=== PATIENT | female | born 1940 | race Caucasian/White ===

== ENCOUNTER 2017-03-10 14:49 | Observation (INO) | payer MEDICARE ==
[2017-03-10] MEDS ORDERED: SODIUM CHLORIDE 0.9% 1,000 ML IV ONE (15:26)
--- NOTE | 2017-03-10 15:29 | ED ---
General Adult HPI - General Chief complaint: Altered Mental Status Stated complaint: Altered Mental State Time Seen by Provider: 03/10/17 15:19 Source: patient, RN notes reviewed Mode of arrival: wheelchair Limitations: no limitations - History of Present Illness Initial comments: Patient is a pleasant 77-year-old female presenting to the emergency department with general weakness and confusion. History is provided by family. Patient has chronic dementia however has seemed worse the past couple of days. Patient is more argumentative. Patient did not want wake up this morning. Patient is unable to get around without assistance the past 2 days. A foul odor has been noticed of the urine. Decreased appetite. - Related Data Home Medications Medication Instructions Recorded Confirmed Cefaclor 250 mg PO DAILY 03/10/17 03/10/17 Allergies Allergy/AdvReac Type Severity Reaction Status Date / Time No Known Allergies Allergy Verified 03/10/17 15:19 Review of Systems ROS Statement: Those systems with pertinent positive or pertinent negative responses have been documented in the HPI. ROS Other: All systems not noted in ROS Statement are negative. Constitutional: Denies: fever Eyes: Denies: eye pain ENT: Denies: ear pain Respiratory: Denies: cough, dyspnea Cardiovascular: Denies: chest pain Endocrine: Reports: fatigue Gastrointestinal: Denies: abdominal pain Genitourinary: Denies: dysuria Musculoskeletal: Denies: back pain Skin: Denies: rash Neurological: Reports: weakness (Generalized) Past Medical History Past Medical History: Unable to Obtain, Cancer, Dementia Additional Past Medical History / Comment(s): pt spouse reports that he believes his has a history of uterine cancer with a possible hysterectomy. Pt is a poor historian. History of Any Multi-Drug Resistant Organisms: None Reported Past Surgical History: Unable to Obtain Additional Past Surgical History / Comment(s): pt a poor historian. Past Psychological History: No Psychological Hx Reported Smoking Status: Current every day smoker Past Alcohol Use History: None Reported Past Drug Use History: None Reported - Past Family History Daughter(s) Family Medical History: Cancer Father Family Medical History: Congestive Heart Failure (CHF) General Exam Limitations: no limitations General appearance: alert, in no apparent distress Head exam: Present: atraumatic Eye exam: Present: normal appearance, PERRL, EOMI ENT exam: Present: normal oropharynx Neck exam: Present: normal inspection Respiratory exam: Present: normal lung sounds bilaterally Cardiovascular Exam: Present: regular rate, normal rhythm GI/Abdominal exam: Present: soft. Absent: tenderness Extremities exam: Present: normal inspection Neurological exam: Present: alert, altered, CN II-XII intact. Absent: motor sensory deficit Expanded Patient oriented to: Present: person. Absent: place, time Cranial nerves: EOM's Intact: Normal Motor strength exam: RUE: 5, LUE: 5, RLE: 5, LLE: 5 Eye Response: (4) open spontaneously Motor Response: (6) obeys commands Verbal Response: (4) confused conversation Psychiatric exam: Present: normal affect, normal mood Skin exam: Present: normal color Course Vital Signs 03/10/17 03/10/17 14:50 16:15 Temperature 97.0 F L Pulse Rate 68 100 Respiratory 16 18 Rate Blood Pressure 183/77 134/70 O2 Sat by Pulse 98 94 L Oximetry - Reevaluation(s) Reevaluation #1: 03/10/17 16:44 Patient does not meet sepsis criteria. EKG Findings - EKG Comments: EKG Findings:: Sinus bradycardia 57. DE 120. QRS 74. QT 402. QTC 391. Normal axis. LVH criteria. No acute ST change. Medical Decision Making - Medical Decision Making Patient reevaluated and resting comfortably in bed. Patient and family updated on results and plan. Dr. Austin has been paged for admission for Dr. Conn. - Lab Data Result diagrams: 03/10/17 15:25 03/10/17 15:25 Lab Results 03/10/17 03/10/17 03/10/17 Range/Units 15:12 15:25 15:25 WBC 5.2 (3.8-10.6) k/uL RBC 4.37 (3.80-5.40) m/uL Hgb 12.7 (11.4-16.0) gm/dL Hct 40.0 (34.0-46.0) % MCV 91.5 (80.0-100.0) fL MCH 29.1 (25.0-35.0) pg MCHC 31.8 (31.0-37.0) g/dL RDW 14.5 (11.5-15.5) % Plt Count 226 (150-450) k/uL Neutrophils % 64 % Lymphocytes % 24 % Monocytes % 8 % Eosinophils % 1 % Basophils % 1 % Neutrophils # 3.3 (1.3-7.7) k/uL Lymphocytes # 1.2 (1.0-4.8) k/uL Monocytes # 0.4 (0-1.0) k/uL Eosinophils # 0.0 (0-0.7) k/uL Basophils # 0.0 (0-0.2) k/uL PT (9.0-12.0) sec INR (<1.2) APTT (22.0-30.0) sec Sodium (137-145) mmol/L Potassium (3.5-5.1) mmol/L Chloride (98-107) mmol/L Carbon Dioxide (22-30) mmol/L Anion Gap mmol/L BUN (7-17) mg/dL Creatinine (0.52-1.04) mg/dL Est GFR (MDRD) Af Amer (>60 ml/min/1.73 sqM) Est GFR (MDRD) Non-Af (>60 ml/min/1.73 sqM) Glucose (74-99) mg/dL Calcium (8.4-10.2) mg/dL Total Bilirubin (0.2-1.3) mg/dL AST (14-36) U/L ALT (9-52) U/L Alkaline Phosphatase (38-126) U/L Total Creatine Kinase 113 (30-135) U/L CK-MB (CK-2) 2.3 (0.0-2.4) ng/mL CK-MB (CK-2) Rel Index 2.0 Troponin I <0.012 (0.000-0.034) ng/mL Total Protein (6.3-8.2) g/dL Albumin (3.5-5.0) g/dL Urine Color Yellow Urine Appearance Cloudy H (Clear) Urine pH 6.5 (5.0-8.0) Ur Specific [place] 1.017 (1.001-1.035) Urine Protein Trace H (Negative) Urine Glucose (UA) Negative (Negative) Urine Ketones Negative (Negative) Urine Blood Small H (Negative) Urine Nitrite Negative (Negative) Urine Bilirubin Negative (Negative) Urine Urobilinogen <2.0 (<2.0) mg/dL Ur Leukocyte Esterase Large H (Negative) Urine RBC 7 H (0-5) /hpf Urine WBC >182 H (0-5) /hpf Ur Squamous Epith Cells <1 (0-4) /hpf Hyaline Casts 2 (0-2) /lpf Urine Mucus Rare H (None) /hpf 03/10/17 03/10/17 Range/Units 15:25 15:25 WBC (3.8-10.6) k/uL RBC (3.80-5.40) m/uL Hgb (11.4-16.0) gm/dL Hct (34.0-46.0) % MCV (80.0-100.0) fL MCH (25.0-35.0) pg MCHC (31.0-37.0) g/dL RDW (11.5-15.5) % Plt Count (150-450) k/uL Neutrophils % % Lymphocytes % % Monocytes % % Eosinophils % % Basophils % % Neutrophils # (1.3-7.7) k/uL Lymphocytes # (1.0-4.8) k/uL Monocytes # (0-1.0) k/uL Eosinophils # (0-0.7) k/uL Basophils # (0-0.2) k/uL PT 10.3 (9.0-12.0) sec INR 1.0 (<1.2) APTT 22.0 (22.0-30.0) sec Sodium 135 L (137-145) mmol/L Potassium 4.6 (3.5-5.1) mmol/L Chloride 100 (98-107) mmol/L Carbon Dioxide 27 (22-30) mmol/L Anion Gap 8 mmol/L BUN 27 H (7-17) mg/dL Creatinine 1.00 (0.52-1.04) mg/dL Est GFR (MDRD) Af Amer >60 (>60 ml/min/1.73 sqM) Est GFR (MDRD) Non-Af 54 (>60 ml/min/1.73 sqM) Glucose 90 (74-99) mg/dL Calcium 9.9 (8.4-10.2) mg/dL Total Bilirubin 1.4 H (0.2-1.3) mg/dL AST 23 (14-36) U/L ALT 31 (9-52) U/L Alkaline Phosphatase 50 (38-126) U/L Total Creatine Kinase (30-135) U/L CK-MB (CK-2) (0.0-2.4) ng/mL CK-MB (CK-2) Rel Index Troponin I (0.000-0.034) ng/mL Total Protein 7.1 (6.3-8.2) g/dL Albumin 4.2 (3.5-5.0) g/dL Urine Color Urine Appearance (Clear) Urine pH (5.0-8.0) Ur Specific [place] (1.001-1.035) Urine Protein (Negative) Urine Glucose (UA) (Negative) Urine Ketones (Negative) Urine Blood (Negative) Urine Nitrite (Negative) Urine Bilirubin (Negative) Urine Urobilinogen (<2.0) mg/dL Ur Leukocyte Esterase (Negative) Urine RBC (0-5) /hpf Urine WBC (0-5) /hpf Ur Squamous Epith Cells (0-4) /hpf Hyaline Casts (0-2) /lpf Urine Mucus (None) /hpf - Radiology Data Radiology results: image reviewed (Chest x-ray shows no acute process. Computed tomography scan of the brain shows hydrocephalus.) Disposition Clinical Impression: Altered mental status, Urinary tract infection Disposition: ADMITTED IP TO THIS HOSP Referrals: Terri Conn DO [Primary Care Provider] - 1-2 days Decision Time: 16:44
[2017-03-10 15:37] LABS: Basophils % (A) 1 %; Eosinophils % (A) 1 %; HGB 12.7 gm/dL (11.4-16.0); Lymphocytes # (A) 1.2 k/uL (1.0-4.8); Lymphocytes % (A) 24 %; MCH 29.1 pg (25.0-35.0); MCHC 31.8 g/dL (31.0-37.0); MCV 91.5 fL (80.0-100.0); Mean Platelet Volume 8.7; Monocytes # (A) 0.4 k/uL (0-1.0); Monocytes % (A) 8 %; Neutrophils # (A) 3.3 k/uL (1.3-7.7); Neutrophils % (A) 64 %; Platelet Count 226 k/uL (150-450); RBC 4.37 m/uL (3.80-5.40); RDW 14.5 % (11.5-15.5); WBC 5.2 k/uL (3.8-10.6)
[2017-03-10 15:52] LABS: ALT 31 U/L (9-52); AST 23 U/L (14-36); Albumin 4.2 g/dL (3.5-5.0); Alkaline Phosphatase 50 U/L (38-126); Anion Gap 8 mmol/L; Blood Urea Nitrogen 27 mg/dL (7-17); Calcium 9.9 mg/dL (8.4-10.2); Carbon Dioxide 27 mmol/L (22-30); Chloride 100 mmol/L (98-107); Glucose 90 mg/dL (74-99); Potassium 4.6 mmol/L (3.5-5.1); Sodium 135 mmol/L (137-145); Total Bilirubin 1.4 mg/dL (0.2-1.3); Total Protein 7.1 g/dL (6.3-8.2)
[2017-03-10 15:53] LABS: Creatine Kinase 113 U/L (30-135)
[2017-03-10 15:56] LABS: Appearance,Urine Cloudy (Clear); Bilirubin,Urine Negative (Negative); Blood,Urine Small (Negative); Color,Urine Yellow; Glucose,Urine (UA) Negative (Negative); Hyaline Casts,Urine 2 /lpf (0-2); Ketones,Urine Negative (Negative); Leukocyte Esterase,Urine Large (Negative); Mucus,Urine Rare /hpf; Nitrite,Urine Negative (Negative); PH, Urine 6.5 (5.0-8.0); Protein,Urine Trace (Negative); RBC,Urine 7 /hpf (0-5); Specific Gravity,Urine 1.017 (1.001-1.035); Squamous Epithelial Cell,Urine <1 /hpf (0-4); Urobilinogen,Urine <2.0 mg/dL (<2.0); WBC,Urine >182 /hpf (0-5)
[2017-03-10 16:03] LABS: Prothrombin Time 10.3 sec (9.0-12.0)
[2017-03-10 16:04] LABS: Creatine Kinase MB 2.3 ng/mL (0.0-2.4); Troponin I <0.012 ng/mL (0.000-0.034)
--- NOTE | 2017-03-10 16:40 | XR ---
EXAMINATION TYPE: XR chest 2V DATE OF EXAM: 03/10/2017 COMPARISON: Chest x-ray January 09, 2015 HISTORY: Altered mental status and weakness. TECHNIQUE: Frontal and lateral views of the chest are obtained. FINDINGS: There is chronic parenchymal change without suspicious focal air space opacity, pleural ef fusion, or pneumothorax seen. The cardiac silhouette size is stable and upper limits of normal. Ther e is fracture deformity left posterolateral eighth rib presumed old. IMPRESSION: No acute cardiopulmonary process.
--- NOTE | 2017-03-10 16:42 | CT ---
EXAMINATION TYPE: CT brain wo con DATE OF EXAM: 03/10/2017 HISTORY: Altered mental status. CT DLP: 809.2 mGycm. Automated Exposure Control for Dose Reduction was Utilized. TECHNIQUE: CT scan of the head is performed without contrast. COMPARISON: CT brain January 09, 2015 . FINDINGS: There is no acute intracranial hemorrhage or midline shift identified. There is severe hy drocephalus redemonstrated without significant change from prior. Fourth ventricle is not dilated sim ilar to prior. The globes are intact and the visualized sinuses are clear. IMPRESSION: No acute intracranial hemorrhage or midline shift. Persistent severe hydrocephalus. No s ignificant change from prior.
[2017-03-10] MEDS ORDERED: NALOXONE 0.4 MG/ML 1 ML VIAL IV PRN (16:45)
[2017-03-10] MEDS ORDERED: cefTRIAXone IN SWFI 1,000 MG/10 ML SYRINGE IVP STA (17:01)
[2017-03-10] MEDS: SODIUM CHLORIDE 0.9% 1,000 ML IV SCH (18:57)
[2017-03-10] MEDS: QUEtiapine 25 MG TAB PO SCH (20:30)
[2017-03-11] MEDS: cefTRIAXone IN SWFI 1,000 MG/10 ML SYRINGE IVP SCH ×2 (06:12→17:59)
[2017-03-11] MEDS: SODIUM CHLORIDE 0.9% 1,000 ML IV SCH (06:13)
[2017-03-11 09:01] LABS: Basophils # (A) 0.1 k/uL (0-0.2); Basophils % (A) 1 %; Eosinophils # (A) 0.1 k/uL (0-0.7); Eosinophils % (A) 1 %; HCT 38.7 % (34.0-46.0); HGB 11.9 gm/dL (11.4-16.0); Lymphocytes # (A) 1.3 k/uL (1.0-4.8); Lymphocytes % (A) 25 %; MCHC 30.7 g/dL (31.0-37.0); MCV 94.5 fL (80.0-100.0); Monocytes # (A) 0.4 k/uL (0-1.0); Monocytes % (A) 7 %; Neutrophils # (A) 3.2 k/uL (1.3-7.7); Neutrophils % (A) 62 %; Platelet Count 217 k/uL (150-450); RBC 4.09 m/uL (3.80-5.40); RDW 14.6 % (11.5-15.5); WBC 5.1 k/uL (3.8-10.6)
[2017-03-11 09:22] LABS: ALT 28 U/L (9-52); AST 21 U/L (14-36); Albumin 3.5 g/dL (3.5-5.0); Alkaline Phosphatase 43 U/L (38-126); Anion Gap 9 mmol/L; Blood Urea Nitrogen 25 mg/dL (7-17); Carbon Dioxide 26 mmol/L (22-30); Chloride 104 mmol/L (98-107); Glucose 77 mg/dL (74-99); Potassium 4.7 mmol/L (3.5-5.1); Sodium 139 mmol/L (137-145); Total Bilirubin 0.9 mg/dL (0.2-1.3)
[2017-03-11 09:53] LABS: Calcium 9.1 mg/dL (8.4-10.2)
--- NOTE | 2017-03-11 12:11 | P.HPIM ---
History of Present Illness H&P Date: 03/11/17 Chief Complaint: Increasing confusion and aggressive behavior This is a 77-year-old female, patient of [facility]. She has a known past medical history of dementia and uterine cancer status post hysterectomy. Patient is a poor historian. Most of information was taken from ER report. Patient is confused. Apparently per ER report patient has been having confusion and generalized weakness and his been more argumentative over the last couple a days. Her urine has had a foul order. She's had a decreased appetite. Also requiring more assistance with ambulating. Patient was found to have a UTI and was started on IV Rocephin. Chest x-rays negative. Computed tomography scan of the brain showed no acute changes but did reveal a persistent severe hydrocephalus with no significant change from prior study. EKG showed sinus bradycardia with a heart rate of 57. Patient lying in bed comfortably. She has a bedside sitter. Denies any pain. Denies chest pain, shortness breath, nausea or vomiting, bowel movement changes or burning with urination. Review of Systems Please refer to HPI otherwise unremarkable Past Medical History Past Medical History: Unable to Obtain, Cancer, Dementia Additional Past Medical History / Comment(s): pt spouse reports that he believes his has a history of uterine cancer with a possible hysterectomy. Pt is a poor historian. History of Any Multi-Drug Resistant Organisms: None Reported Past Surgical History: Unable to Obtain Additional Past Surgical History / Comment(s): pt a poor historian. Past Anesthesia/Blood Transfusion Reactions: No Reported Reaction Past Psychological History: No Psychological Hx Reported Smoking Status: Former smoker Past Alcohol Use History: None Reported Past Drug Use History: None Reported - Past Family History Daughter(s) Family Medical History: Cancer Father Family Medical History: Congestive Heart Failure (CHF) Medications and Allergies Home Medications Medication Instructions Recorded Confirmed Type Cefaclor 250 mg PO DAILY 03/10/17 03/10/17 History Allergies Allergy/AdvReac Type Severity Reaction Status Date / Time No Known Allergies Allergy Verified 03/10/17 15:19 Physical Exam Vitals: Vital Signs Temp Pulse Pulse Resp BP BP Pulse Ox 03/11/17 07:00 97.4 F L 72 16 155/75 97 03/10/17 23:00 98.5 F 60 16 131/65 97 03/10/17 17:45 60 18 162/84 100 03/10/17 16:43 97.0 F L 100 18 134/70 94 L 03/10/17 16:15 100 18 134/70 94 L 03/10/17 14:50 97.0 F L 68 16 183/77 98 Intake and Output 03/10/17 03/11/17 03/11/17 22:59 06:59 14:59 Other: Voiding Method Diaper Diaper Incontinent Incontinent # Voids 2 Head normocephalic Neck supple Lungs clear to auscultation bilaterally no wheezing or crackles Heart regular rate and rhythm S1-S2, no rub or gallop Abdomen is soft nontender nondistended positive bowel sounds no hepatosplenomegaly Extremities no edema Neuro alert and orientated to 0. Patient is pleasantly confused. Vital laying in bed, in no distress Results CBC & Chem 7: 03/11/17 08:22 03/11/17 08:22 Labs: Abnormal Lab Results - Last 24 Hours (Table) 03/10/17 03/10/17 03/11/17 Range/Units 15:12 15:25 08:22 MCHC 30.7 L (31.0-37.0) g/dL Sodium 135 L (137-145) mmol/L BUN 27 H (7-17) mg/dL Total Bilirubin 1.4 H (0.2-1.3) mg/dL Total Protein (6.3-8.2) g/dL Urine Appearance Cloudy H (Clear) Urine Protein Trace H (Negative) Urine Blood Small H (Negative) Ur Leukocyte Esterase Large H (Negative) Urine RBC 7 H (0-5) /hpf Urine WBC >182 H (0-5) /hpf Urine Mucus Rare H (None) /hpf 03/11/17 Range/Units 08:22 MCHC (31.0-37.0) g/dL Sodium (137-145) mmol/L BUN 25 H (7-17) mg/dL Total Bilirubin (0.2-1.3) mg/dL Total Protein 6.0 L (6.3-8.2) g/dL Urine Appearance (Clear) Urine Protein (Negative) Urine Blood (Negative) Ur Leukocyte Esterase (Negative) Urine RBC (0-5) /hpf Urine WBC (0-5) /hpf Urine Mucus (None) /hpf Microbiology - Last 24 Hours (Table) 03/10/17 15:12 Urine Culture - Preliminary Urine,Voided Thrombosis Risk Factor Assmnt - Choose All That Apply Any of the Below Risk Factors Present?: No Other Risk Factors: Yes Each Risk Factor Represents 3 Points: Age 75 years or older Thrombosis Risk Factor Assessment Total Risk Factor Score: 3 Thrombosis Risk Factor Assessment Level: Moderate Risk Assessment and Plan Assessment: 1. Acute metabolic encephalopathy secondary to UTI. Patient having confusion and aggressive behavior. Seroquel added at bedtime. Computed tomography scan of the brain showing no acute changes. Did show a persistent severe hydrocephalus which was no change from prior CT 2. UTI: Check urine culture. Continue IV Rocephin 3. History of dementia 4. History of uterine cancer status post hysterectomy 5. Medical debility consult physical therapy GI prophylaxis Pepcid and DVT prophylaxis subcu heparin Time with Patient: Greater than 30 (Greater than 50% of the total time spent in counseling and coordination of care.I performed an examination of the patient and discussed their management with the physician [employer]. I have reviewed the Physician [employer]'s notes and agree with the documented findings and plan of care)
--- NOTE | 2017-03-11 13:19 | CT ---
EXAMINATION TYPE: CT brain wo con DATE OF EXAM: 03/11/2017 COMPARISON: NONE HISTORY: Confusion CT DLP: 1121 mGycm Automated exposure control for dose reduction was used. FINDINGS: There is no acute intracranial hemorrhage or midline shift identified. There is severe hydrocephalus redemonstrated without significant change from prior. Fourth ventricle is not dilated similar to prio r. The globes are intact and the visualized sinuses are clear. Cerebellar tonsils are slightly low-lying in position without evidence of discrete Chiari malformatio n. IMPRESSION: 1. No acute intracranial hemorrhage or midline shift. Persistent severe hydrocephalus. No significant change from prior.
[2017-03-11] MEDS: QUEtiapine 25 MG TAB PO SCH (19:59)
[2017-03-12] MEDS: HEPARIN SODIUM,PORCINE 5,000 UNIT/ML 1 ML VIAL SQ SCH ×3 (00:08→19:51)
[2017-03-12] MEDS: SODIUM CHLORIDE 0.9% 1,000 ML IV SCH ×3 (00:13→21:57)
[2017-03-12] MEDS: cefTRIAXone IN SWFI 1,000 MG/10 ML SYRINGE IVP SCH ×2 (05:09→17:46)
[2017-03-12 08:49] LABS: Basophils # (A) 0.1 k/uL (0-0.2); Basophils % (A) 1 %; Eosinophils % (A) 1 %; HCT 32.7 % (34.0-46.0); HGB 10.5 gm/dL (11.4-16.0); Lymphocytes % (A) 17 %; MCH 29.3 pg (25.0-35.0); MCV 91.5 fL (80.0-100.0); Mean Platelet Volume 8.5; Monocytes # (A) 0.5 k/uL (0-1.0); Monocytes % (A) 8 %; Neutrophils # (A) 4.2 k/uL (1.3-7.7); Neutrophils % (A) 71 %; Platelet Count 188 k/uL (150-450); RBC 3.57 m/uL (3.80-5.40); RDW 14.4 % (11.5-15.5)
[2017-03-12 09:03] LABS: Anion Gap 10 mmol/L; Blood Urea Nitrogen 24 mg/dL (7-17); Calcium 9.1 mg/dL (8.4-10.2); Carbon Dioxide 23 mmol/L (22-30); Chloride 106 mmol/L (98-107); Glucose 73 mg/dL (74-99); Potassium 3.9 mmol/L (3.5-5.1); Sodium 139 mmol/L (137-145)
[2017-03-12] MEDS: FAMOTIDINE 20 MG TAB PO SCH (09:10)
--- NOTE | 2017-03-12 14:25 | P.PN ---
Subjective Progress Note Date: 03/12/17 This is a 77-year-old female, patient of [facility]. She has a known past medical history of dementia and uterine cancer status post hysterectomy. Patient is a poor historian. Most of information was taken from ER report. Patient is confused. Apparently per ER report patient has been having confusion and generalized weakness and his been more argumentative over the last couple a days. Her urine has had a foul order. She's had a decreased appetite. Also requiring more assistance with ambulating. Patient was found to have a UTI and was started on IV Rocephin. Chest x-rays negative. Computed tomography scan of the brain showed no acute changes but did reveal a persistent severe hydrocephalus with no significant change from prior study. EKG showed sinus bradycardia with a heart rate of 57. Patient lying in bed comfortably. She has a bedside sitter. Denies any pain. Denies chest pain, shortness breath, nausea or vomiting, bowel movement changes or burning with urination. 03/12/2017 patient is still confused. Her her mentation has some shown some improvement. However, patient is still very fidgety and trying to get out of the bed. Awaiting psychiatric evaluation Objective - Vital Signs Vital signs: Vital Signs Temp 98.1 F 03/12/17 07:00 Pulse 61 03/12/17 07:00 Resp 16 03/12/17 08:00 BP 115/81 03/12/17 07:00 Pulse Ox 97 03/12/17 07:00 Intake & Output 03/11/17 03/12/17 03/12/17 18:59 06:59 18:59 Intake Total 480 200 Balance 480 200 Intake: Oral 480 200 Other: Voiding Method Diaper Diaper Diaper Incontinent Incontinent Incontinent # Voids 2 4 2 - Exam Head normocephalic Neck supple Lungs clear to auscultation bilaterally no wheezing or crackles Heart regular rate and rhythm S1-S2, no rub or gallop Abdomen is soft nontender nondistended positive bowel sounds no hepatosplenomegaly Extremities no edema Neuro alert and orientated to name - Labs CBC & Chem 7: 03/12/17 07:49 03/12/17 07:49 Labs: Abnormal Lab Results - Last 24 Hours (Table) 03/12/17 03/12/17 Range/Units 07:49 07:49 RBC 3.57 L (3.80-5.40) m/uL Hgb 10.5 L (11.4-16.0) gm/dL Hct 32.7 L (34.0-46.0) % BUN 24 H (7-17) mg/dL Glucose 73 L (74-99) mg/dL Microbiology - Last 24 Hours (Table) 03/10/17 15:12 Urine Culture - Final Urine,Voided Assessment and Plan Assessment: 1. Acute metabolic encephalopathy secondary to UTI. Patient having confusion and aggressive behavior. Seroquel added at bedtime. Computed tomography scan of the brain showing no acute changes. Did show a persistent severe hydrocephalus which was no change from prior CT. Awaiting psychiatric evaluation 2. UTI: Continue IV Rocephin. Urine culture negative 3. History of dementia 4. History of uterine cancer status post hysterectomy 5. Medical debility consult physical therapy Anticipate discharge probably within the next 1-2 days GI prophylaxis Pepcid and DVT prophylaxis subcu heparin
--- NOTE | 2017-03-12 19:24 | P.CNNES ---
History of Present Illness Consult date: 03/12/17 Reason for Consult: Patient to be evaluated for confusion and severe hydrocephalus. History of Present Illness: This patient is a 77-year-old female who was admitted to [facility] on 03/10/2017 for increasing confusion and aggressive behavior. Patient has a past medical history of severe hydrocephalus and history of dementia. She has undergone treatment for uterine cancer with hysterectomy procedure. She is a very poor historian and is unable to provide any medical history today at bedside. Neurology was consulted today for further evaluation of her confusion. She was found in the emergency room to have evidence of a urinary tract infection and was started on IV Rocephin. Since admission to the hospital she is requiring 24-hour sitter at bedside due to agitation and aggressive behavior. She did undergo 2 CT scans of the brain both of which revealed evidence of a severe hydrocephalus. Her most recent CAT scan was done on 03/11/2017 and report indicates no acute intracranial hemorrhage or midline shift. There is persistent severe hydrocephalus. No change from prior study performed on 03/10/2017. Review of her previous medical record indicates she underwent a CAT scan of the brain on 01/09/2015. The CAT scan also reveals evidence for severe hydrocephalus. After review of all of her CAT scan films it is obvious she has a severe form of hydrocephalus. Information was obtained from the patient's nurse today who spoke to her earlier today. The and inform the nurse that she has been evaluated for the hydrocephalus and due to the risk and complications of further treatment of this condition the has refused any further surgical intervention for treatment of her hydrocephalus. We did try to contact the by phone but was unable to this evening. We did review the CAT scan films again in detail and due to the severity of her hydrocephalus likely showing worsening of underlying dementia for this patient. Unfortunately she also has a urinary tract infection which is also contributing to her increased confusion. We would recommend the attending physician to discuss further treatment options and cold status for this patient. We are waiting further evaluation from psychiatry. Unfortunately due to the long standing history of severe hydrocephalus she has a worsening dementing process. She is not able to follow any commands today at bedside. She is in restraints due to agitation. She will require a sitter at bedside due to her poor condition at this time. Once again we will discuss the CAT scan findings tomorrow with Dr. Boogie or Dr. Levine in detail. There is very little to offer this patient other than possible surgery which the has refused for her at this time. We will continue close monitoring of this patient. We will await further evaluation from psychiatry. Apparently she has been placed on Seroquel at bedtime to see if this may help with some of her agitation. Her overall prognosis at this time remains very guarded. Review of Systems Constitutional: Denies chills, Denies fever Eyes: denies blurred vision, denies pain Ears, nose, mouth and throat: Denies headache, Denies sore throat Cardiovascular: Denies chest pain, Denies shortness of breath Respiratory: Denies cough Gastrointestinal: Denies abdominal pain, Denies diarrhea, Denies nausea, Denies vomiting Genitourinary: Denies dysuria, Denies hematuria Musculoskeletal: Denies myalgias Integumentary: Denies pruritus, Denies rash Neurological: Reports ataxia, Reports balance difficulties, Reports change in mentation, Reports confusion, Reports gait dysfunction, Reports lack of coordination, Reports memory loss, Reports motor disturbance, Reports paresthesias, Reports weakness Psychiatric: Reports confusion, Reports depression, Reports difficulty concentrating, Reports hallucinations, Reports memory loss, Reports sleep disturbances Endocrine: Denies fatigue, Denies weight change Past Medical History Past Medical History: Unable to Obtain, Cancer, Dementia Additional Past Medical History / Comment(s): pt spouse reports that he believes his has a history of uterine cancer with a possible hysterectomy. Pt is a poor historian. History of Any Multi-Drug Resistant Organisms: None Reported Past Surgical History: Unable to Obtain Additional Past Surgical History / Comment(s): pt a poor historian. Past Anesthesia/Blood Transfusion Reactions: No Reported Reaction Past Psychological History: No Psychological Hx Reported Smoking Status: Former smoker Past Alcohol Use History: None Reported Past Drug Use History: None Reported - Past Family History Daughter(s) Family Medical History: Cancer Father Family Medical History: Congestive Heart Failure (CHF) Medications and Allergies Home Medications Medication Instructions Recorded Confirmed Type Cefaclor 250 mg PO DAILY 03/10/17 03/10/17 History Allergies Allergy/AdvReac Type Severity Reaction Status Date / Time No Known Allergies Allergy Verified 03/10/17 15:19 Physical Examination - Vital Signs Vital Signs: Vital Signs Temp Pulse Resp BP Pulse Ox 03/12/17 15:00 98.1 F 67 16 126/84 96 03/12/17 08:00 16 03/12/17 07:00 98.1 F 61 16 115/81 97 03/11/17 23:00 97.0 F L 64 14 155/67 95 Intake and Output 03/12/17 03/12/17 03/12/17 06:59 14:59 22:59 Intake Total 400 Balance 400 Intake: Oral 400 Other: Voiding Method Diaper Diaper Toilet Incontinent Incontinent Diaper Incontinent # Voids 4 3 3 # Bowel Movements 1 1 Weight 44.452 kg Patient Weight 03/13/17 06:59 Weight 44.452 kg - Constitutional General appearance: disheveled, thin - EENT EENT: PERRL, mucous membranes moist - Respiratory Respiratory: lungs clear, normal breath sounds - Cardiovascular Cardiovascular: regular rate, normal S1, normal S2 Extremities: no peripheral edema bilaterally - Gastrointestinal Gastrointestinal: normoactive bowel sounds - Integumentary Integumentary: normal - Neurologic Cranial nerve examination: PERRL, EOMI, V1/V2/V3 grossly intact, face symmetric , intact gag reflex, intact corneal reflex, normal palatal elevation Speech examination: global aphasia Sensorimotor examination: intact Motor examination - right side: 3/5: biceps, triceps, wrist flexion, wrist extension, channel development manager, hip flexors, knee extensors, dorsiflexion, toe extension (EHL) , plantarflexion Motor examination - left side: 3/5: biceps, triceps, wrist flexion, wrist extension, channel development manager, hip flexors, knee extensors, dorsiflexion, toe extension (EHL) , plantarflexion Detailed sensory examination: intact Reflex and gait examination: intact Reflexes: 1+: ankle, bicep, knee, tricep - Musculoskeletal Musculoskeletal: no pain - Psychiatric Psychiatric: agitated, pressured speech Results - Laboratory Findings CBC and BMP: 03/12/17 07:49 03/12/17 07:49 Abnormal Lab Findings: Abnormal Labs 03/10/17 03/10/17 03/11/17 15:12 15:25 08:22 RBC Hgb Hct MCHC 30.7 L Sodium 135 L BUN 27 H Glucose Total Bilirubin 1.4 H Total Protein Urine Appearance Cloudy H Urine Protein Trace H Urine Blood Small H Ur Leukocyte Esterase Large H Urine RBC 7 H Urine WBC >182 H Urine Mucus Rare H 03/11/17 03/12/17 03/12/17 08:22 07:49 07:49 RBC 3.57 L Hgb 10.5 L Hct 32.7 L MCHC Sodium BUN 25 H 24 H Glucose 73 L Total Bilirubin Total Protein 6.0 L Urine Appearance Urine Protein Urine Blood Ur Leukocyte Esterase Urine RBC Urine WBC Urine Mucus Assessment and Plan (1) Hydrocephalus Current Visit: Yes Status: Acute Code(s): G91.9 - HYDROCEPHALUS, UNSPECIFIED SNOMED Code(s): 171010439 (2) Urinary tract infection Current Visit: Yes Status: Acute Code(s): N39.0 - URINARY TRACT INFECTION, SITE NOT SPECIFIED SNOMED Code(s): 72898982 (3) Dementia Current Visit: No Status: Acute Code(s): F03.90 - UNSPECIFIED DEMENTIA WITHOUT BEHAVIORAL DISTURBANCE SNOMED Code(s): 83580193 (4) Acute encephalopathy Current Visit: Yes Status: Acute Code(s): G93.40 - ENCEPHALOPATHY, UNSPECIFIED SNOMED Code(s): 6376261 Plan: This patient is a 77-year-old female who was admitted to Hospital with increasing confusion and aggressive behavior. She underwent 2 CT scans of the brain the results which are noted above. Her most recent CAT scan was done on 03/11/2017 and reveals no acute intracranial hemorrhage or midline shift. There was evidence for severe hydrocephalus which remains unchanged. This was compared to a previous CAT scan that she had done back on 01/09/2015 and there is still evidence on that scan of severe hydrocephalus. This patient has evidence suggesting ongoing dementing process due to severe hydrocephalus. informed nursing staff today that he does not wish any surgical intervention for this patient for treatment of the severe hydrocephalus. Apparently this has been reviewed and discussed on previous admissions for this patient. At this time we will await further recommendations from psychiatry. She has been placed on Seroquel at bedtime. She still remains very demented and unfortunately show signs of worsening dementing process due to the severe hydrocephalus noted on CAT scan of the brain. We would recommend supportive care for this patient. Would consider cold status of this patient as well. We will await any further recommendations from psychiatry. Her overall prognosis at this time remains very guarded. We will discuss these findings of the CAT scan with the admitting staff Dr. Boogie and Dr. Levine tomorrow. Time with Patient: Greater than 30
[2017-03-12] MEDS: QUEtiapine 25 MG TAB PO SCH (19:51)
--- NOTE | 2017-03-12 22:38 | CONS ---
CONSULTATION DATE OF SERVICE: 03/12/2017. PURPOSE FOR CONSULTATION: Evaluate for confusion and aggressive behavior. HISTORY OF PRESENT ILLNESS: The patient is a 77-year-old female, she has a history of dementia with hydrocephalus and acute delirium secondary to urinary tract infection. Nursing reports that when she came in on the , she was quite confused, she was restless, she was disorganized in her behavior, she was difficult to redirect. On the she was started on Seroquel and continues on Seroquel 25 mg at bedtime. Her was with her when I saw her, according to both nursing and her she has been doing better today compared to yesterday. She is calmer. She is a little more appropriate in her responses. She still has significant cognitive disturbance, though is a little more connected to current circumstances. She does tend to keep herself busy with tabletop activities. She will randomly move things around without much purpose. She does talk, though much of what she says is somewhat garbled. She seems to have some frustration when she talks, in that it is as if she knows what she wants to say but can not get her words out. She will say some things appropriately, though if she tries to elaborate on any subject, she will get caught mid-sentence and then not be able to finish her words. She often will make comments that have little meaning and it is difficult to follow her train of thought. She has been in a fairly good mood today. She slept fair last night. She has been cooperative. She is taking medications. It is noted that when I reviewed concerns with her , he indicated that she has struggled with dementia for the past 2 years. She has had episodes where she wanders out of the house. She has had a few episodes going back in the last 1 to 2 years where she actually walked about a mile down the road. The described that one time he was out in the yard working and she wandered out of the house and it took the neighbors and police to get her back home. The says that he rarely would leave her alone for any period time. He might be away from home for less than an hour, but never any more than that. Most of the time when he leaves home he takes her with him. MENTAL STATUS: Patient was sitting at a table. She had some wrestling with her hands. She gave fairly good eye contact. She responded to questions, though much of what she said was difficult to understand. When I asked her where she was, she seemed to be able to say she was in the hospital. She struggled to say any more beyond that. When I asked her the cognitive questions, she was not able to respond. She did seem to make an effort to answer some questions, but was noted struggle to get her words out. She smiled much of the time during the interview. Other than moving her hands about, she did not seem to be particularly restless. Her affect was in the reasonable range. She was calm. Her mood was even. She did not appear to be distressed. ASSESSMENT: This 77-year-old female is diagnosed with delirium secondary to urinary tract infection as a complication of her dementia. At this point, she seems to be doing better. She is started on a low dose of Seroquel, which apparently has been helpful. Given that she is making progress, I would continue her dose the same, though we could look at going up on Seroquel if needed, depending on her progress. I discussed a number of issues with the . It would be appropriate for the social media content manager to meet with him to discuss issues in terms of home support. We also talked about the possibility of her getting some kind of GPS tracking device, so that if she were to leave the house the could be aware of that and better manage the situation while still being able to address the family's overall care needs. I will continue to follow. MMIAN / JAMAR: [id number] /
[2017-03-13] MEDS: SODIUM CHLORIDE 0.9% 1,000 ML IV SCH (05:26)
[2017-03-13] MEDS: cefTRIAXone IN SWFI 1,000 MG/10 ML SYRINGE IVP SCH (05:26)
[2017-03-13 07:18] VITALS: BP 118/69; PULSE 63; RESP 16; TEMP 97.6
[2017-03-13 08:24] LABS: Basophils % (A) 1 %; Eosinophils # (A) 0.1 k/uL (0-0.7); Eosinophils % (A) 2 %; HCT 34.7 % (34.0-46.0); HGB 10.8 gm/dL (11.4-16.0); Lymphocytes # (A) 1.2 k/uL (1.0-4.8); Lymphocytes % (A) 24 %; MCV 93.5 fL (80.0-100.0); Mean Platelet Volume 8.3; Monocytes # (A) 0.4 k/uL (0-1.0); Monocytes % (A) 7 %; Neutrophils # (A) 3.2 k/uL (1.3-7.7); Neutrophils % (A) 64 %; Platelet Count 201 k/uL (150-450); RBC 3.72 m/uL (3.80-5.40); RDW 14.4 % (11.5-15.5); WBC 5.1 k/uL (3.8-10.6)
[2017-03-13 08:34] LABS: Anion Gap 6 mmol/L; Blood Urea Nitrogen 17 mg/dL (7-17); Calcium 8.9 mg/dL (8.4-10.2); Carbon Dioxide 26 mmol/L (22-30); Chloride 109 mmol/L (98-107); Glucose 80 mg/dL (74-99); Sodium 141 mmol/L (137-145)
[2017-03-13] MEDS: HEPARIN SODIUM,PORCINE 5,000 UNIT/ML 1 ML VIAL SQ SCH (09:23)
[2017-03-13] MEDS: FAMOTIDINE 20 MG TAB PO SCH (09:23)
[2017-03-13] MEDS ORDERED: FLUCONAZOLE ORAL SUSP 1,400 MG/35 ML BOTTLE PO SCH (12:00)
--- NOTE | 2017-03-13 12:15 | P.DS ---
Providers Date of admission: 03/10/17 16:46 Expected date of discharge: 03/13/17 Attending physician: Ramo Levine Consults: 03/11/17 14:40 Consult Physician Routine Consulting Provider: Aurelio Ulloa Consult Reason/Comments: confusion Do you want consulting provider notified?: Yes 03/12/17 16:17 Consult Physician Routine Consulting Provider: Nella Cortes Consult Reason/Comments: confusion Do you want consulting provider notified?: Yes Primary care physician: Terri Conn [facility] Course: Diagnoses on Discharge: 1. Acute metabolic encephalopathy secondary to UTI. Patient having confusion and aggressive behavior. Seroquel added at bedtime. Computed tomography scan of the brain showing no acute changes. Did show a persistent severe hydrocephalus which was no change from prior CT. Awaiting psychiatric evaluation 2. UTI: Received IV Rocephin during this admission, urine culture positive for Rosemary she will receive Diflucan 200 mg once daily for 5 days at the time of discharge 3. History of dementia 4. History of uterine cancer status post hysterectomy 5. Medical debility consult physical therapy Hospital course: This is a 77-year-old female, patient of [facility]. She has a known past medical history of dementia and uterine cancer status post hysterectomy. Patient is a poor historian. Most of information was taken from ER report. Patient is confused. Apparently per ER report patient has been having confusion and generalized weakness and his been more argumentative over the last couple a days. Her urine has had a foul order. She's had a decreased appetite. Also requiring more assistance with ambulating. Patient was found to have a UTI and was started on IV Rocephin. Chest x-rays negative. Computed tomography scan of the brain showed no acute changes but did reveal a persistent severe hydrocephalus with no significant change from prior study. EKG showed sinus bradycardia with a heart rate of 57. Patient lying in bed comfortably. She has a bedside sitter. Denies any pain. Denies chest pain, shortness breath, nausea or vomiting, bowel movement changes or burning with urination. 03/12/2017 patient is still confused. Her her mentation has some shown some improvement. However, patient is still very fidgety and trying to get out of the bed. Awaiting psychiatric evaluation On 03/13/2017 patient is alert confused in no apparent distress, patient is back to her baseline per her , medically patient is able to be discharged , rehab possibilities discussed with and he prefers to have her go home. Plan - Discharge Summary New Discharge Prescriptions: New Fluconazole Oral Susp [Diflucan Oral Susp] 200 mg PO Q24H ml Discontinued Cefaclor 250 mg PO DAILY Discharge Medication List Fluconazole Oral Susp [Diflucan Oral Susp] 200 mg PO Q24H ml 03/13/17 [Rx] Follow up Appointment(s)/Referral(s): Terri Conn DO [Primary Care Provider] - 1-2 days
== END 2017-03-13 14:33 | disposition home or self-care (01) ==
LOC: EC 14:49 → SUPCPDRO 14:49 → EC 16:43 → INTOOBSV 16:46 → 4MS4W 16:46
PROVIDERS: ADMIT Internal Medicine; ATTEND Internal Medicine
DX: B37.49 Other urogenital candidiasis (principal); G93.41 Metabolic encephalopathy; G91.9 Hydrocephalus, unspecified; F05 Delirium due to known physiological condition; F03.90 Unspecified dementia, unspecified severity, without behavioral disturbance, psychotic disturbance, mood disturbance, and anxiety; R32 Unspecified urinary incontinence; Z82.49 Family history of ischemic heart disease and other diseases of the circulatory system; Z80.9 Family history of malignant neoplasm, unspecified; Z85.42 Personal history of malignant neoplasm of other parts of uterus; Z87.891 Personal history of nicotine dependence; Z78.1 Physical restraint status; Z79.2 Long term (current) use of antibiotics
CPT/HCPCS: 99285; 96361 ×6; 96376 ×3; 96372 ×2; 96374; 36415; 93005; 97162; 80053 ×2; 80048 ×2; 82550; 82553; 84484; 85025 ×4; 85610; 85730; 81001; 87086; 71046; 70450 ×2; G0378 ×4; J1644 ×2; J0696 ×4

== ENCOUNTER 2017-05-02 19:26 | Inpatient (IN) | payer MEDICARE ==
[2017-05-02] MEDS ORDERED: IBUPROFEN 600 MG TAB PO STA (19:41)
[2017-05-02] MEDS ORDERED: ACETAMINOPHEN TAB 325 MG TAB PO STA (19:41)
[2017-05-02] MEDS ORDERED: ONDANSETRON 4 MG/2 ML VIAL IVP STA (19:42)
[2017-05-02] MEDS: SODIUM CHLORIDE 0.9% 500 ML IV SCH ×2 (20:06→20:56)
[2017-05-02 20:21] LABS: Basophils % (A) 0 %; Eosinophils % (A) 0 %; HCT 39.6 % (34.0-46.0); HGB 13.5 gm/dL (11.4-16.0); Lymphocytes # (A) 0.5 k/uL (1.0-4.8); Lymphocytes % (A) 3 %; MCH 30.6 pg (25.0-35.0); MCHC 34.2 g/dL (31.0-37.0); MCV 89.4 fL (80.0-100.0); Mean Platelet Volume 8.6; Monocytes # (A) 0.7 k/uL (0-1.0); Monocytes % (A) 4 %; Neutrophils # (A) 14.4 k/uL (1.3-7.7); Neutrophils % (A) 91 %; Platelet Count 212 k/uL (150-450); RBC 4.43 m/uL (3.80-5.40); RDW 13.7 % (11.5-15.5); WBC 15.8 k/uL (3.8-10.6)
--- NOTE | 2017-05-02 20:40 | ED ---
General Adult HPI - General Chief complaint: Nausea/Vomiting/Diarrhea Stated complaint: Vomiting Time Seen by Provider: 05/02/17 19:30 Source: patient, family, RN notes reviewed Mode of arrival: wheelchair Limitations: no limitations - History of Present Illness Initial comments: This is a 77-year-old female presents emergency Department with complaint of altered mental status as well as vomiting. Patient is a very poor historian psychiatric the history from the caregiver. He states that she started acting altered yesterday and then today started vomiting. He denies any diarrhea. Caregiver states that there is been no complaints of chest pain is been no signs of any difficulty breathing there's been no coughing. He also states that the stool had any blood in it nor did any of the vomitus. Patient didn't complain of a headache. She is not eating or drinking lately. - Related Data Home Medications Medication Instructions Recorded Confirmed Ciprofloxacin HCl [Cipro] 500 mg PO Q12HR 05/02/17 05/02/17 Allergies Allergy/AdvReac Type Severity Reaction Status Date / Time No Known Allergies Allergy Verified 05/03/17 01:17 Review of Systems ROS Statement: Those systems with pertinent positive or pertinent negative responses have been documented in the HPI. ROS Other: All systems not noted in ROS Statement are negative. Past Medical History Past Medical History: Unable to Obtain, Cancer, Dementia Additional Past Medical History / Comment(s): pt spouse reports that he believes his has a history of uterine cancer with a possible hysterectomy. Pt is a poor historian. History of Any Multi-Drug Resistant Organisms: None Reported Past Surgical History: Unable to Obtain, Hysterectomy Additional Past Surgical History / Comment(s): pt a poor historian. Past Anesthesia/Blood Transfusion Reactions: No Reported Reaction Past Psychological History: No Psychological Hx Reported Smoking Status: Former smoker Past Alcohol Use History: None Reported Past Drug Use History: None Reported - Past Family History Daughter(s) Family Medical History: Cancer Father Family Medical History: Congestive Heart Failure (CHF) General Exam - General Exam Comments Initial Comments: GENERAL: Patient is nontoxic and well-hydrated and is in mild distress. Patient feels extremely hot and she is cachectic ENT: Neck is soft and supple. No significant lymphadenopathy is noted. Oropharynx is clear. Moist mucous membranes. Neck has full range of motion without eliciting any pain. There is no thyroid enlargement and no masses were felt. EYES: The sclera were anicteric and conjunctiva were pink and moist. Extraocular movements were intact and pupils were equal round and reactive to light. Eyelids were unremarkable. PULMONARY: Unlabored respirations. Good breath sounds bilaterally. No audible rales rhonchi or wheezing was noted. CARDIOVASCULAR: There is a regular rate and rhythm without any murmurs gallops or rubs. ABDOMEN: Soft and nontender with normal bowel sounds. SKIN: Skin is clear with no lesions or rashes and otherwise unremarkable. NEUROLOGIC: Patient is alert and oriented 1 MUSCULOSKELETAL: Normal extremities with adequate strength and full range of motion. LYMPHATICS: No significant lymphadenopathy is noted PSYCHIATRIC: Patient's altered so I psychiatric exam could not be completed Limitations: no limitations Course Vital Signs 05/02/17 05/02/17 05/02/17 19:28 20:11 20:49 Temperature 98.1 F 103.7 F H Pulse Rate 104 H 77 Respiratory 18 16 Rate Blood Pressure 126/88 118/58 O2 Sat by Pulse 94 L 94 L Oximetry 05/02/17 05/02/17 20:56 21:41 Temperature 100.8 F H 100.2 F H Pulse Rate 70 Respiratory 18 Rate Blood Pressure 106/55 O2 Sat by Pulse 97 Oximetry Medical Decision Making - Medical Decision Making Dr. Mesa will be taking over the care of this patient at 9 PM - Lab Data Result diagrams: 05/05/17 07:52 05/05/17 07:52 Lab Results 05/02/17 05/02/17 05/02/17 Range/Units 20:03 20:10 20:10 WBC 15.8 H (3.8-10.6) k/uL RBC 4.43 (3.80-5.40) m/uL Hgb 13.5 (11.4-16.0) gm/dL Hct 39.6 (34.0-46.0) % MCV 89.4 (80.0-100.0) fL MCH 30.6 (25.0-35.0) pg MCHC 34.2 (31.0-37.0) g/dL RDW 13.7 (11.5-15.5) % Plt Count 212 (150-450) k/uL Neutrophils % 91 % Lymphocytes % 3 % Monocytes % 4 % Eosinophils % 0 % Basophils % 0 % Neutrophils # 14.4 H (1.3-7.7) k/uL Lymphocytes # 0.5 L (1.0-4.8) k/uL Monocytes # 0.7 (0-1.0) k/uL Eosinophils # 0.0 (0-0.7) k/uL Basophils # 0.0 (0-0.2) k/uL Sodium 141 (137-145) mmol/L Potassium 4.3 (3.5-5.1) mmol/L Chloride 94 L (98-107) mmol/L Carbon Dioxide 29 (22-30) mmol/L Anion Gap 18 mmol/L BUN 59 H (7-17) mg/dL Creatinine 1.70 H (0.52-1.04) mg/dL Est GFR (MDRD) Af Amer 36 (>60 ml/min/1.73 sqM) Est GFR (MDRD) Non-Af 29 (>60 ml/min/1.73 sqM) Glucose 126 H (74-99) mg/dL Plasma Lactic Acid Angus (0.7-2.0) mmol/L Calcium 9.7 (8.4-10.2) mg/dL Total Bilirubin 2.8 H (0.2-1.3) mg/dL AST 22 (14-36) U/L ALT 18 (9-52) U/L Alkaline Phosphatase 80 (38-126) U/L Total Protein 7.9 (6.3-8.2) g/dL Albumin 4.6 (3.5-5.0) g/dL Urine Color Yellow Urine Appearance Cloudy H (Clear) Urine pH 5.5 (5.0-8.0) Ur Specific [place] 1.017 (1.001-1.035) Urine Protein 1+ H (Negative) Urine Glucose (UA) Negative (Negative) Urine Ketones Negative (Negative) Urine Blood Small H (Negative) Urine Nitrite Negative (Negative) Urine Bilirubin Negative (Negative) Urine Urobilinogen <2.0 (<2.0) mg/dL Ur Leukocyte Esterase Small H (Negative) Urine RBC 1 (0-5) /hpf Urine WBC 3 (0-5) /hpf Ur Squamous Epith Cells <1 (0-4) /hpf Urine Bacteria Rare H (None) /hpf Urine Mucus Rare H (None) /hpf Influenza Type A RNA (Not Detectd) Influenza Type B (PCR) (Not Detectd) 05/02/17 05/02/17 Range/Units 20:10 20:10 WBC (3.8-10.6) k/uL RBC (3.80-5.40) m/uL Hgb (11.4-16.0) gm/dL Hct (34.0-46.0) % MCV (80.0-100.0) fL MCH (25.0-35.0) pg MCHC (31.0-37.0) g/dL RDW (11.5-15.5) % Plt Count (150-450) k/uL Neutrophils % % Lymphocytes % % Monocytes % % Eosinophils % % Basophils % % Neutrophils # (1.3-7.7) k/uL Lymphocytes # (1.0-4.8) k/uL Monocytes # (0-1.0) k/uL Eosinophils # (0-0.7) k/uL Basophils # (0-0.2) k/uL Sodium (137-145) mmol/L Potassium (3.5-5.1) mmol/L Chloride (98-107) mmol/L Carbon Dioxide (22-30) mmol/L Anion Gap mmol/L BUN (7-17) mg/dL Creatinine (0.52-1.04) mg/dL Est GFR (MDRD) Af Amer (>60 ml/min/1.73 sqM) Est GFR (MDRD) Non-Af (>60 ml/min/1.73 sqM) Glucose (74-99) mg/dL Plasma Lactic Acid Angus 2.1 H* (0.7-2.0) mmol/L Calcium (8.4-10.2) mg/dL Total Bilirubin (0.2-1.3) mg/dL AST (14-36) U/L ALT (9-52) U/L Alkaline Phosphatase (38-126) U/L Total Protein (6.3-8.2) g/dL Albumin (3.5-5.0) g/dL Urine Color Urine Appearance (Clear) Urine pH (5.0-8.0) Ur Specific [place] (1.001-1.035) Urine Protein (Negative) Urine Glucose (UA) (Negative) Urine Ketones (Negative) Urine Blood (Negative) Urine Nitrite (Negative) Urine Bilirubin (Negative) Urine Urobilinogen (<2.0) mg/dL Ur Leukocyte Esterase (Negative) Urine RBC (0-5) /hpf Urine WBC (0-5) /hpf Ur Squamous Epith Cells (0-4) /hpf Urine Bacteria (None) /hpf Urine Mucus (None) /hpf Influenza Type A RNA Not Detected (Not Detectd) Influenza Type B (PCR) Not Detected (Not Detectd) Disposition Disposition: ADMITTED IP TO THIS HOSP
[2017-05-02 20:48] LABS: Albumin 4.6 g/dL (3.5-5.0); Calcium 9.7 mg/dL (8.4-10.2); Potassium 4.3 mmol/L (3.5-5.1); Total Bilirubin 2.8 mg/dL (0.2-1.3); Total Protein 7.9 g/dL (6.3-8.2)
[2017-05-02 21:13] LABS: Appearance,Urine Cloudy (Clear); Bacteria,Urine Rare /hpf; Bilirubin,Urine Negative (Negative); Blood,Urine Small (Negative); Color,Urine Yellow; Glucose,Urine (UA) Negative (Negative); Ketones,Urine Negative (Negative); Leukocyte Esterase,Urine Small (Negative); Mucus,Urine Rare /hpf; PH, Urine 5.5 (5.0-8.0); Protein,Urine 1+ (Negative); RBC,Urine 1 /hpf (0-5); Specific Gravity,Urine 1.017 (1.001-1.035); Squamous Epithelial Cell,Urine <1 /hpf (0-4); Urobilinogen,Urine <2.0 mg/dL (<2.0); WBC,Urine 3 /hpf (0-5)
[2017-05-02] MEDS ORDERED: cefTRIAXone IN SWFI 1,000 MG/10 ML SYRINGE IVP STA (21:13)
[2017-05-02] MEDS ORDERED: PNEUMONIA PROTOCOL UTILIZED 1 EACH MISC PO PRN (21:13)
[2017-05-02] MEDS ORDERED: SODIUM CHLORIDE 0.9% 500 ML IV STA (21:25)
--- NOTE | 2017-05-02 21:49 | XR ---
EXAMINATION TYPE: XR chest 2V DATE OF EXAM: 05/02/2017 COMPARISON: 03/10/2017 HISTORY: Altered mental status. Fever. TECHNIQUE: Frontal and lateral views of the chest are obtained. FINDINGS: There is some patchy infiltrate in the right middle lobe. There is a small infiltrate at t he left lung base. There is no heart failure. Heart size is normal. Thoracic aorta is atheromatous. T here is osteopenia. There are chest leads. IMPRESSION: There are new bilateral pneumonic infiltrates compared to old exam and consistent with p neumonia. No heart failure.
[2017-05-03] MEDS: AZITHROMYCIN 500 MG TAB PO ONE ×2 (00:25→02:52)
[2017-05-03 01:16] VITALS: BMI 17.0
[2017-05-03 09:16] LABS: Basophils # (A) 0.1 k/uL (0-0.2); Basophils % (A) 1 %; Eosinophils # (A) 0.1 k/uL (0-0.7); Eosinophils % (A) 1 %; HCT 39.9 % (34.0-46.0); HGB 12.8 gm/dL (11.4-16.0); Lymphocytes # (A) 0.8 k/uL (1.0-4.8); Lymphocytes % (A) 8 %; MCH 29.9 pg (25.0-35.0); MCV 93.7 fL (80.0-100.0); Mean Platelet Volume 8.3; Monocytes # (A) 0.5 k/uL (0-1.0); Monocytes % (A) 5 %; Neutrophils # (A) 8.4 k/uL (1.3-7.7); Neutrophils % (A) 84 %; Platelet Count 210 k/uL (150-450); RBC 4.26 m/uL (3.80-5.40); RDW 13.7 % (11.5-15.5); WBC 10.1 k/uL (3.8-10.6)
[2017-05-03 09:25] LABS: Calcium 9.1 mg/dL (8.4-10.2); Potassium 4.6 mmol/L (3.5-5.1)
[2017-05-03] MEDS: cefTRIAXone IN SWFI 1,000 MG/10 ML SYRINGE IVP SCH (09:46)
[2017-05-03] MEDS: SODIUM CHLORIDE 0.9% 1,000 ML IV SCH (09:46)
--- NOTE | 2017-05-03 10:04 | P.HPIM ---
History of Present Illness H&P Date: 05/03/17 Chief Complaint: Altered mental status changes This is a 77-year-old female, patient of [facility]. She has a known past medical history of dementia, persistent severe hydrocephalus and uterine cancer status post hysterectomy. Patient is a poor historian. Her information was gathered from the chart and ER report. Patient is sitting up in bed comfortably with no evidence of distress. Apparently she was brought in by her who is her caregiver because she's had increasing confusion and one episode of vomiting. There is no diarrhea reported. She had a temp of 103.7 heart rate was 104 white count 15.8 also evidence of an acute renal failure with a creatinine of 1.70 lactic acid elevated at 2.1. Chest x-ray showed evidence of bilateral infiltrates. She was given IV fluids and started on azithromycin and Rocephin. Blood culture and urine culture obtained. Influenza screen was negative. Per ER report reported no complaints of any chest pain shortness of breath. However there is report of that she's not eating and drinking very well at home. Patient shows no evidence of distress. Sitting in bed comfortably Review of Systems Please refer to HPI otherwise unremarkable Past Medical History Past Medical History: Unable to Obtain, Cancer, Dementia Additional Past Medical History / Comment(s): Patient's spouse reports that he believes his has a history of uterine cancer with a possible hysterectomy. Pt. is a poor historian r/t dementia. Recently treated for UTI. History of Any Multi-Drug Resistant Organisms: None Reported Past Surgical History: Unable to Obtain, Hysterectomy Additional Past Surgical History / Comment(s): Pt. is a poor historian. Past Anesthesia/Blood Transfusion Reactions: No Reported Reaction Past Psychological History: No Psychological Hx Reported Smoking Status: Former smoker Past Alcohol Use History: None Reported Past Drug Use History: None Reported - Past Family History Daughter(s) Family Medical History: Cancer Father Family Medical History: Congestive Heart Failure (CHF) Medications and Allergies Home Medications Medication Instructions Recorded Confirmed Type Ciprofloxacin HCl [Cipro] 500 mg PO Q12HR 05/02/17 05/02/17 History Allergies Allergy/AdvReac Type Severity Reaction Status Date / Time No Known Allergies Allergy Verified 05/03/17 01:17 Physical Exam Vitals: Vital Signs Temp Pulse Pulse Resp BP BP Pulse Ox 05/03/17 06:02 98.2 F 64 17 116/61 95 05/02/17 22:44 98.6 F 74 17 114/51 94 L 05/02/17 21:41 100.2 F H 70 18 106/55 97 05/02/17 20:56 100.8 F H 05/02/17 20:49 77 16 118/58 94 L 05/02/17 20:11 103.7 F H 05/02/17 19:28 98.1 F 104 H 18 126/88 94 L Intake and Output 05/02/17 05/03/17 05/03/17 22:59 06:59 14:59 Other: Voiding Method Diaper # Voids 1 Weight 41.73 kg 41 kg 41 kg Patient Weight 05/04/17 06:59 Weight 41 kg Head normocephalic Neck supple Lungs clear to auscultation bilaterally no wheezing or crackles Heart regular rate and rhythm S1-S2, no rub or gallop Abdomen is soft nontender nondistended positive bowel sounds no hepatosplenomegaly Extremities no edema Neuro awake and alert. Orientated 0. Patient is very confused. Able to tell me that nothing is hurting Results CBC & Chem 7: 05/03/17 08:24 05/03/17 08:24 Labs: Abnormal Lab Results - Last 24 Hours (Table) 05/02/17 05/02/17 05/02/17 Range/Units 20:03 20:10 20:10 WBC 15.8 H (3.8-10.6) k/uL Neutrophils # 14.4 H (1.3-7.7) k/uL Lymphocytes # 0.5 L (1.0-4.8) k/uL Chloride 94 L (98-107) mmol/L BUN 59 H (7-17) mg/dL Creatinine 1.70 H (0.52-1.04) mg/dL Glucose 126 H (74-99) mg/dL Plasma Lactic Acid Angus (0.7-2.0) mmol/L Total Bilirubin 2.8 H (0.2-1.3) mg/dL Urine Appearance Cloudy H (Clear) Urine Protein 1+ H (Negative) Urine Blood Small H (Negative) Ur Leukocyte Esterase Small H (Negative) Urine Bacteria Rare H (None) /hpf Urine Mucus Rare H (None) /hpf 05/02/17 05/03/17 05/03/17 Range/Units 20:10 08:24 08:24 WBC (3.8-10.6) k/uL Neutrophils # 8.4 H (1.3-7.7) k/uL Lymphocytes # 0.8 L (1.0-4.8) k/uL Chloride (98-107) mmol/L BUN 58 H (7-17) mg/dL Creatinine 1.55 H (0.52-1.04) mg/dL Glucose 105 H (74-99) mg/dL Plasma Lactic Acid Angus 2.1 H* (0.7-2.0) mmol/L Total Bilirubin (0.2-1.3) mg/dL Urine Appearance (Clear) Urine Protein (Negative) Urine Blood (Negative) Ur Leukocyte Esterase (Negative) Urine Bacteria (None) /hpf Urine Mucus (None) /hpf Microbiology - Last 24 Hours (Table) 05/02/17 20:03 Urine Culture - Preliminary Urine,Catheterized Thrombosis Risk Factor Assmnt - Choose All That Apply Any of the Below Risk Factors Present?: Yes Each Factor Represents 1 point: Medical pt on bed rest, Serious lung disease incl. pneumonia (< 1month) Each Risk Factor Represents 2 Points: Patient confined to bed Each Risk Factor Represents 3 Points: Age 75 years or older Other congenital or acquired thrombophilia - If yes, enter type in comment: No Thrombosis Risk Factor Assessment Total Risk Factor Score: 7 Thrombosis Risk Factor Assessment Level: High Risk Assessment and Plan Assessment: 1. Pneumonia with sepsis present on admission: Patient started on IV Rocephin and azithromycin. Await blood culture. Chest x-ray had shown new bilateral pneumonic infiltrates. Check sputum culture. Patient given IV fluids 2. Acute kidney injury with a creatinine of 1.70 on admission. Likely related to dehydration and poor oral intake. Patient has been given IV fluids in the ER. creatinine has come down to 1.55. Will resume normal saline at 50 mL an hour. Repeat labs in a.m. 3. 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 Acute metabolic encephalopathy secondary to pneumonia with sepsis 5. 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 Last computed tomography scan was 03/11/2017 and at that time was seen by neurology. And at that time the had informed him that he did not want any surgical intervention for his for the treatment of the severe hydrocephalus. GI prophylaxis Pepcid and DVT prophylaxis subcu heparin Time with Patient: Greater than 30 (Greater than 50% of the total time spent in counseling and coordination of care. I performed an examination of the patient and discussed their management with the physician [facility]. I have reviewed the Physician [facility]'s notes and agree with the documented findings and plan of care)
--- NOTE | 2017-05-03 14:09 | P.CNPUL ---
History of Present Illness Consult date: 05/03/17 Reason for consult: cough, pneumonia, abnormal CXR/CT Chief complaint: Possible aspiration History of present illness: Consult dated 05/03/2017 This is a 77-year-old female who apparently presented to the emergency department brought in by her with complaints of mental status changes. In addition, she apparently was having some vomiting and may have aspirated. The tells me that the patient was told in the emergency department that she may have pneumonia. Apparently the patient was not having any fever or chills. No significant cough. No phlegm production. Really nothing to suggest pneumonia. May have aspirated when she vomited. The patient's a very poor historian all the history was obtained from the . The patient apparently was a smoker in the past. She looks very very stable. Not wearing any supplemental oxygen. Does not appear to be any distress at all. Chest x- ray shows some very minimal infiltrates in the lungs. This may in fact relate to some mild aspiration. I'm not exactly sure why this patient was admitted to the hospital. This could've been certainly treated as an outpatient with outpatient oral antibiotics. No only home medication she was on home with ciprofloxacin. Apparently her primary doctor is Dr. Terri oCnn. tells me that Dr. Conn told him that maybe some of the reason that she was having nausea vomiting was related to the ciprofloxacin which was given to her for urinary tract infection. Review of Systems ROS unobtainable: due to mental status Past Medical History Past Medical History: Unable to Obtain, Cancer, Dementia Additional Past Medical History / Comment(s): Patient's spouse reports that he believes his has a history of uterine cancer with a possible hysterectomy. Pt. is a poor historian r/t dementia. Recently treated for UTI. History of Any Multi-Drug Resistant Organisms: None Reported Past Surgical History: Unable to Obtain, Hysterectomy Additional Past Surgical History / Comment(s): Pt. is a poor historian. Past Anesthesia/Blood Transfusion Reactions: No Reported Reaction Past Psychological History: No Psychological Hx Reported Smoking Status: Former smoker Past Alcohol Use History: None Reported Past Drug Use History: None Reported - Past Family History Daughter(s) Family Medical History: Cancer Father Family Medical History: Congestive Heart Failure (CHF) Medications and Allergies Home Medications Medication Instructions Recorded Confirmed Type Ciprofloxacin HCl [Cipro] 500 mg PO Q12HR 05/02/17 05/02/17 History Allergies Allergy/AdvReac Type Severity Reaction Status Date / Time No Known Allergies Allergy Verified 05/03/17 01:17 Physical Exam Osteopathic Statement: *. No significant issues noted on an osteopathic structural exam other than those noted in the History and Physical/Consult. Vitals: Vital Signs Temp Pulse Pulse Resp BP BP Pulse Ox 05/03/17 09:46 64 17 05/03/17 06:02 98.2 F 64 17 116/61 95 05/02/17 22:44 98.6 F 74 17 114/51 94 L 05/02/17 21:41 100.2 F H 70 18 106/55 97 05/02/17 20:56 100.8 F H 05/02/17 20:49 77 16 118/58 94 L 05/02/17 20:11 103.7 F H 05/02/17 19:28 98.1 F 104 H 18 126/88 94 L Intake and Output 05/02/17 05/03/17 05/03/17 22:59 06:59 14:59 Other: Voiding Method Diaper Diaper # Voids 1 Weight 41.73 kg 41 kg 41 kg Patient Weight 05/04/17 06:59 Weight 41 kg No acute distress, very poor historian. In no acute distress. Not wearing any supplemental oxygen. HEENT examination is grossly unremarkable. Mucous membranes are moist. No oral lesions. Neck supple. Full range of motion. No adenopathy thyromegaly or neck vein distention. Cardiovascular examination reveals regular rhythm rate. S1-S2 normal. No S3 or S4. No discernible murmur noted. Lungs reveal mostly clear breath sounds. A few scattered rhonchi. No wheezes or crackles. Abdomen soft bowel sounds are heard. No masses or tenderness. Extremities are intact. No cyanosis clubbing or edema. Skin is without rash or lesion. Neurologic examination is difficult to assess because of her mental status. Results - Laboratory Findings CBC and BMP: 05/03/17 08:24 05/03/17 08:24 Abnormal lab findings: Abnormal Labs 05/02/17 05/02/17 05/02/17 20:03 20:10 20:10 WBC 15.8 H Neutrophils # 14.4 H Lymphocytes # 0.5 L Chloride 94 L BUN 59 H Creatinine 1.70 H Glucose 126 H Plasma Lactic Acid Angus Total Bilirubin 2.8 H Urine Appearance Cloudy H Urine Protein 1+ H Urine Blood Small H Ur Leukocyte Esterase Small H Urine Bacteria Rare H Urine Mucus Rare H 05/02/17 05/03/17 05/03/17 20:10 08:24 08:24 WBC Neutrophils # 8.4 H Lymphocytes # 0.8 L Chloride BUN 58 H Creatinine 1.55 H Glucose 105 H Plasma Lactic Acid Angus 2.1 H* Total Bilirubin Urine Appearance Urine Protein Urine Blood Ur Leukocyte Esterase Urine Bacteria Urine Mucus - Diagnostic Findings Chest x-ray: image reviewed (Labs x-rays a medications are reviewed.) Assessment and Plan Assessment: *Assessment Possible mild aspiration pneumonia. Chest x-rays really unimpressive. Most significant infiltrate in the right midlung. Dementia History of uterine carcinoma Previous hysterectomy. Previous history of tobacco use Renal insufficiency, not sure if this represents acute or chronic kidney disease. Plan: Plan dated 05/03/2017 Patient looks very stable. I don't believe this patient really needs to be in the hospital. I review the labs and medications. Patient can likely be treated with an oral antibiotic. The patient may have aspirated more than anything else. It may be more of a gastric acid aspiration or Ida syndrome. The patient looks very stable. Not having any respiratory distress. Vital signs are stable. Prognosis is guarded. Time with Patient: Greater than 30
[2017-05-03] MEDS: HEPARIN SODIUM,PORCINE 5,000 UNIT/ML 1 ML VIAL SQ SCH (21:31)
[2017-05-03] MEDS: AZITHROMYCIN 500 MG TAB PO SCH (21:31)
[2017-05-04] MEDS: SODIUM CHLORIDE 0.9% 1,000 ML IV SCH (05:37)
[2017-05-04 07:27] LABS: Basophils % (A) 1 %; Eosinophils # (A) 0.1 k/uL (0-0.7); Eosinophils % (A) 1 %; HCT 37.3 % (34.0-46.0); HGB 11.8 gm/dL (11.4-16.0); Lymphocytes # (A) 0.9 k/uL (1.0-4.8); Lymphocytes % (A) 13 %; MCH 29.3 pg (25.0-35.0); MCHC 31.5 g/dL (31.0-37.0); MCV 93.1 fL (80.0-100.0); Mean Platelet Volume 8.4; Monocytes # (A) 0.4 k/uL (0-1.0); Monocytes % (A) 6 %; Neutrophils # (A) 5.3 k/uL (1.3-7.7); Neutrophils % (A) 76 %; Platelet Count 221 k/uL (150-450); RBC 4.01 m/uL (3.80-5.40); RDW 13.4 % (11.5-15.5)
[2017-05-04 07:34] LABS: Anion Gap 7 mmol/L; Blood Urea Nitrogen 35 mg/dL (7-17); Calcium 8.8 mg/dL (8.4-10.2); Carbon Dioxide 28 mmol/L (22-30); Chloride 101 mmol/L (98-107); Glucose 77 mg/dL (74-99); Potassium 3.9 mmol/L (3.5-5.1); Sodium 136 mmol/L (137-145)
[2017-05-04] MEDS: HEPARIN SODIUM,PORCINE 5,000 UNIT/ML 1 ML VIAL SQ SCH ×2 (09:43→22:02)
[2017-05-04] MEDS: FAMOTIDINE 20 MG TAB PO SCH (09:43)
[2017-05-04] MEDS: cefTRIAXone IN SWFI 1,000 MG/10 ML SYRINGE IVP SCH (09:45)
--- NOTE | 2017-05-04 14:02 | P.PN ---
Subjective Patient is doing well today. Her at bedside. Her appetite is improving. She denies shortness of breath. Objective - Vital Signs Vital signs: Vital Signs Temp 97.3 F L 05/04/17 07:00 Pulse 54 L 05/04/17 07:00 Resp 16 05/04/17 07:00 BP 121/66 05/04/17 07:00 Pulse Ox 93 L 05/04/17 07:00 Intake & Output 05/03/17 05/04/17 05/04/17 18:59 06:59 18:59 Intake Total 700 800 Balance 700 800 Weight 41 kg Intake: Intake, IV Titration 700 800 Amount Sodium Chloride 0.9% 1, 700 800 000 ml @ 50 mls/hr IV . Q20H [facility] [place] Rx#:[id number] Other: Voiding Method Diaper # Voids 1 - Exam General: The patient is awake and alert, in no distress Eye: there is normal conjunctiva bilaterally. Neck: The neck is supple, there is no JVD. Cardiovascular: Normal S1-S2, no S3-S4, no murmurs. Respiratory: Lungs clear to auscultation bilaterally Gastrointestinal: Abdomen is soft, nontender Musculoskeletal: There is no pedal edema. Skin: Skin is warm and dry - Labs CBC & Chem 7: 05/04/17 06:49 05/04/17 06:49 Labs: Abnormal Lab Results - Last 24 Hours (Table) 05/04/17 05/04/17 Range/Units 06:49 06:49 Lymphocytes # 0.9 L (1.0-4.8) k/uL Sodium 136 L (137-145) mmol/L BUN 35 H (7-17) mg/dL Microbiology - Last 24 Hours (Table) 05/02/17 20:03 Urine Culture - Final Urine,Catheterized 05/02/17 20:10 Blood Culture - Preliminary Blood No Growth after 24 hours Assessment and Plan Assessment: 1. Pneumonia with sepsis present on admission: Patient started on IV Rocephin and azithromycin. Await blood culture. Chest x-ray had shown new bilateral pneumonic infiltrates. Check sputum culture. Patient given IV fluids 2. Acute kidney injury with a creatinine of 1.70 on admission. Now back to normal. Probably prerenal secondary to dehydration. Improved with IV fluid. We'll discontinue IV fluids and encourage oral hydration. 3. 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 Acute metabolic encephalopathy secondary to pneumonia with sepsis: Now back to her baseline according to her 5. 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 Last computed tomography scan was 03/11/2017 and at that time was seen by neurology. And at that time the had informed him that he did not want any surgical intervention for his for the treatment of the severe hydrocephalus.
--- NOTE | 2017-05-04 14:51 | P.PN ---
Subjective Progress Note Date: 05/04/17 Principal diagnosis: Pneumonia Progress note dated 05/04/2017 77-year-old female who I saw yesterday in consultation. She came into the emergency department brought in by her with complaints of mental status changes. She was found to have some mild infiltrative changes on chest x-ray and was admitted with a diagnosis of pneumonia. The patient typically sees Dr. Conn as her primary physician. She is doing better today. Feeling better. Her tells us that he was told by the hospital doctor that she would like to be in the hospital till Saturday. The patient denies any coughing wheezing or shortness of breath. Seemed very talkative. Not wearing any supplemental oxygen. I will repeat an x-ray in the morning. No fever no chills. No chest pain. Objective - Vital Signs Vital signs: Vital Signs Temp 97.3 F L 05/04/17 07:00 Pulse 54 L 05/04/17 07:00 Resp 16 05/04/17 07:00 BP 121/66 05/04/17 07:00 Pulse Ox 93 L 05/04/17 07:00 Intake & Output 05/03/17 05/04/17 05/04/17 18:59 06:59 18:59 Intake Total 700 800 Balance 700 800 Weight 41 kg Intake: Intake, IV Titration 700 800 Amount Sodium Chloride 0.9% 1, 700 800 000 ml @ 50 mls/hr IV . Q20H [facility] Rx#:[id number] Other: Voiding Method Diaper # Voids 1 - Exam No acute distress, oriented 3. HEENT examination is grossly unremarkable. Mucous membranes are moist. No oral lesions. Neck supple. Full range of motion. No adenopathy thyromegaly or neck vein distention. Cardiovascular examination reveals regular rhythm rate. S1-S2 normal. No S3 or S4. No discernible murmur noted. Lungs reveal few scattered rhonchi. Breath sounds are mostly clear. No wheezes. No crackles. Abdomen soft bowel sounds are heard. No masses or tenderness. Extremities are intact. No cyanosis clubbing or edema. Skin is without rash or lesion. Neurologic examination is difficult to assess - Labs CBC & Chem 7: 05/04/17 06:49 05/04/17 06:49 Labs: Abnormal Lab Results - Last 24 Hours (Table) 05/04/17 05/04/17 Range/Units 06:49 06:49 Lymphocytes # 0.9 L (1.0-4.8) k/uL Sodium 136 L (137-145) mmol/L BUN 35 H (7-17) mg/dL Microbiology - Last 24 Hours (Table) 05/02/17 20:03 Urine Culture - Final Urine,Catheterized 05/02/17 20:10 Blood Culture - Preliminary Blood No Growth after 24 hours Assessment and Plan Assessment: *Assessment Possible mild aspiration pneumonia. Chest x-rays really unimpressive. Most significant infiltrate in the right midlung. Dementia History of uterine carcinoma Previous hysterectomy. Previous history of tobacco use Renal insufficiency, not sure if this represents acute or chronic kidney disease. Plan: Plan dated 05/03/2017 Patient looks very stable. I don't believe this patient really needs to be in the hospital. I review the labs and medications. Patient can likely be treated with an oral antibiotic. The patient may have aspirated more than anything else. It may be more of a gastric acid aspiration or Ida syndrome. The patient looks very stable. Not having any respiratory distress. Vital signs are stable. Prognosis is guarded. Plan dated 05/04/2017 The patient looks pretty good. I believe she probably had some oropharyngeal or gastric acid aspiration. Her chest x-ray was not very impressive. I'll repeat an x-ray in the morning. From my perspective she could be discharged. We'll leave the that decision up to the primary caregiver. No discharge recommendations are made. Time with Patient: Less than 30
[2017-05-04] MEDS: AZITHROMYCIN 500 MG TAB PO SCH (22:02)
[2017-05-05 08:06] LABS: Basophils % (A) 0 %; Eosinophils # (A) 0.1 k/uL (0-0.7); Eosinophils % (A) 1 %; HCT 38.5 % (34.0-46.0); HGB 12.3 gm/dL (11.4-16.0); Lymphocytes # (A) 0.3 k/uL (1.0-4.8); Lymphocytes % (A) 6 %; MCH 29.3 pg (25.0-35.0); MCHC 31.9 g/dL (31.0-37.0); Mean Platelet Volume 8.2; Monocytes # (A) 0.2 k/uL (0-1.0); Monocytes % (A) 4 %; Neutrophils # (A) 5.1 k/uL (1.3-7.7); Neutrophils % (A) 88 %; Platelet Count 238 k/uL (150-450); RBC 4.19 m/uL (3.80-5.40); RDW 13.4 % (11.5-15.5); WBC 5.8 k/uL (3.8-10.6)
[2017-05-05 08:15] LABS: Blood Urea Nitrogen 22 mg/dL (7-17); Calcium 8.9 mg/dL (8.4-10.2); Chloride 107 mmol/L (98-107); Glucose 90 mg/dL (74-99); Potassium 4.2 mmol/L (3.5-5.1); Sodium 138 mmol/L (137-145)
[2017-05-05 08:31] LABS: Anion Gap 7 mmol/L; Carbon Dioxide 24 mmol/L (22-30)
[2017-05-05] MEDS: HEPARIN SODIUM,PORCINE 5,000 UNIT/ML 1 ML VIAL SQ SCH ×2 (08:46→20:10)
[2017-05-05] MEDS: FAMOTIDINE 20 MG TAB PO SCH (08:46)
[2017-05-05] MEDS: cefTRIAXone IN SWFI 1,000 MG/10 ML SYRINGE IVP SCH (08:46)
[2017-05-05] MEDS ORDERED: ACETAMINOPHEN TAB 325 MG TAB PO PRN (10:42)
--- NOTE | 2017-05-05 12:15 | P.PN ---
Subjective Progress Note Date: 05/05/17 Principal diagnosis: Pneumonia Progress note dated 05/04/2017 77-year-old female who I saw yesterday in consultation. She came into the emergency department brought in by her with complaints of mental status changes. She was found to have some mild infiltrative changes on chest x-ray and was admitted with a diagnosis of pneumonia. The patient typically sees Dr. Conn as her primary physician. She is doing better today. Feeling better. Her tells us that he was told by the hospital doctor that she would like to be in the hospital till Saturday. The patient denies any coughing wheezing or shortness of breath. Seemed very talkative. Not wearing any supplemental oxygen. I will repeat an x-ray in the morning. No fever no chills. No chest pain. Progress note dated 05/05/2017 77-year-old female seen in consultation 2 days ago. She came into the emergency by her with complaints of mental status changes. She was found to have some mild infiltrative changes on chest x-ray and was admitted with a diagnosis of pneumonia. The patient's primary care physician is Dr. Terri Conn. The patient looks well. Doing better each day. The patient' s was concerned because she wasn't eating or drinking well at home. Not having any coughing wheezing or profound shortness of breath. Not a particularly good historian, the patient that is. Does not appear to be in any distress. Not coughing up any phlegm. No fever or chills. No nausea vomiting or diarrhea. No chest pain or chest discomfort. Objective - Vital Signs Vital signs: Vital Signs Temp 99.1 F 05/05/17 12:10 Pulse 80 05/05/17 07:00 Resp 16 05/05/17 07:00 BP 147/82 05/05/17 07:00 Pulse Ox 97 05/05/17 07:00 Intake & Output 05/04/17 05/05/17 05/05/17 18:59 06:59 18:59 Intake Total 960 480 Balance 960 480 Intake: Intake, IV Titration 480 Amount Sodium Chloride 0.9% 1, 480 000 ml @ 50 mls/hr IV . Q20H [facility] Rx#:[id number] Oral 960 Other: # Voids 2 # Bowel Movements 2 - Exam No acute distress, oriented 3. HEENT examination is grossly unremarkable. Mucous membranes are moist. No oral lesions. Neck supple. Full range of motion. No adenopathy thyromegaly or neck vein distention. Cardiovascular examination reveals regular rhythm rate. S1-S2 normal. No S3 or S4. No discernible murmur noted. Lungs reveal few scattered rhonchi. Breath sounds are mostly clear. No wheezes. No crackles. Abdomen soft bowel sounds are heard. No masses or tenderness. Extremities are intact. No cyanosis clubbing or edema. Skin is without rash or lesion. Neurologic examination is difficult to assess - Labs CBC & Chem 7: 05/05/17 07:52 05/05/17 07:52 Labs: Abnormal Lab Results - Last 24 Hours (Table) 05/05/17 05/05/17 Range/Units 07:52 07:52 Lymphocytes # 0.3 L (1.0-4.8) k/uL BUN 22 H (7-17) mg/dL Microbiology - Last 24 Hours (Table) 05/02/17 20:10 Blood Culture - Preliminary Blood No Growth after 48 hours Assessment and Plan Assessment: *Assessment Possible mild aspiration pneumonia. Chest x-rays really unimpressive. Most significant infiltrate in the right midlung. Dementia History of uterine carcinoma Previous hysterectomy. Previous history of tobacco use Renal insufficiency, not sure if this represents acute or chronic kidney disease. Plan: Plan dated 05/03/2017 Patient looks very stable. I don't believe this patient really needs to be in the hospital. I review the labs and medications. Patient can likely be treated with an oral antibiotic. The patient may have aspirated more than anything else. It may be more of a gastric acid aspiration or Ida syndrome. The patient looks very stable. Not having any respiratory distress. Vital signs are stable. Prognosis is guarded. Plan dated 05/04/2017 The patient looks pretty good. I believe she probably had some oropharyngeal or gastric acid aspiration. Her chest x-ray was not very impressive. I'll repeat an x-ray in the morning. From my perspective she could be discharged. We'll leave the that decision up to the primary caregiver. No discharge recommendations are made. Plan dated 05/05/2017 The patient's is hoping his can be discharged in the next day or so. The patient seems be doing relatively well. Eating much better. Drinking fluids well. Does not appear to have any significant respiratory issues at this time. She is a very poor historian though. Doesn't appear to have any chest congestion coughing wheezing or phlegm production. We'll continue to follow. Prognosis is guarded. Time with Patient: Less than 30
--- NOTE | 2017-05-05 13:58 | P.PN ---
Subjective Patient had a fever of 101.4 this morning. She is feeling better otherwise. Objective - Vital Signs Vital signs: Vital Signs Temp 99.1 F 05/05/17 12:10 Pulse 80 05/05/17 07:00 Resp 16 05/05/17 07:00 BP 147/82 05/05/17 07:00 Pulse Ox 97 05/05/17 07:00 Intake & Output 05/04/17 05/05/17 05/05/17 18:59 06:59 18:59 Intake Total 960 480 Balance 960 480 Intake: Intake, IV Titration 480 Amount Sodium Chloride 0.9% 1, 480 000 ml @ 50 mls/hr IV . Q20H TYLER Rx#:[id number] Oral 960 Other: # Voids 2 # Bowel Movements 2 - Exam General: The patient is awake and alert, in no distress Eye: there is normal conjunctiva bilaterally. Neck: The neck is supple, there is no JVD. Cardiovascular: Normal S1-S2, no S3-S4, no murmurs. Respiratory: Lungs clear to auscultation bilaterally Gastrointestinal: Abdomen is soft, nontender Musculoskeletal: There is no pedal edema. Skin: Skin is warm and dry - Labs CBC & Chem 7: 05/05/17 07:52 05/05/17 07:52 Labs: Abnormal Lab Results - Last 24 Hours (Table) 05/05/17 05/05/17 Range/Units 07:52 07:52 Lymphocytes # 0.3 L (1.0-4.8) k/uL BUN 22 H (7-17) mg/dL Microbiology - Last 24 Hours (Table) 05/02/17 20:10 Blood Culture - Preliminary Blood No Growth after 48 hours Assessment and Plan Assessment: 1. Pneumonia with sepsis present on admission: Patient started on IV Rocephin and azithromycin. Await blood culture. Chest x-ray had shown new bilateral pneumonic infiltrates. Check sputum culture. Patient given IV fluids 2. Acute kidney injury with a creatinine of 1.70 on admission. Now back to normal. Probably prerenal secondary to dehydration. Improved with IV fluid. We'll discontinue IV fluids and encourage oral hydration. 3. 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 Acute metabolic encephalopathy secondary to pneumonia with sepsis: Now back to her baseline according to her 5. 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 Last computed tomography scan was 03/11/2017 and at that time was seen by neurology. And at that time the had informed him that he did not want any surgical intervention for his for the treatment of the severe hydrocephalus. 6. Fever of 101.4. I would obtain a repeat blood culture. We'll continue current antibiotic regimen. Patient is clinically feeling well.
--- NOTE | 2017-05-05 15:24 | XR ---
EXAMINATION TYPE: XR chest 2V DATE OF EXAM: 05/05/2017 COMPARISON: 05/02/2017 HISTORY: Pneumonia TECHNIQUE: Frontal and lateral views of the chest are obtained. FINDINGS: There is patchy infiltrate in the right lower lobe. There is also some minimal infiltrate at the left lung base. There is no gross heart failure. Heart size is normal. 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 IMPRESSION: Right lower lobe pneumonia is worse than last exam. No gross heart failure.
[2017-05-05] MEDS: AZITHROMYCIN 500 MG TAB PO SCH (20:10)
[2017-05-06] MEDS: cefTRIAXone IN SWFI 1,000 MG/10 ML SYRINGE IVP SCH (08:20)
[2017-05-06] MEDS: FAMOTIDINE 20 MG TAB PO SCH (08:20)
[2017-05-06] MEDS: HEPARIN SODIUM,PORCINE 5,000 UNIT/ML 1 ML VIAL SQ SCH ×2 (08:20→20:21)
[2017-05-06 08:56] LABS: Basophils % (A) 1 %; Eosinophils % (A) 1 %; HCT 37.3 % (34.0-46.0); HGB 11.8 gm/dL (11.4-16.0); Lymphocytes # (A) 0.6 k/uL (1.0-4.8); Lymphocytes % (A) 11 %; MCH 29.5 pg (25.0-35.0); MCHC 31.5 g/dL (31.0-37.0); MCV 93.5 fL (80.0-100.0); Mean Platelet Volume 8.5; Monocytes # (A) 0.3 k/uL (0-1.0); Monocytes % (A) 5 %; Neutrophils # (A) 4.4 k/uL (1.3-7.7); Neutrophils % (A) 81 %; Platelet Count 260 k/uL (150-450); RBC 3.99 m/uL (3.80-5.40); RDW 13.6 % (11.5-15.5); WBC 5.4 k/uL (3.8-10.6)
[2017-05-06 09:07] LABS: Anion Gap 9 mmol/L; Blood Urea Nitrogen 17 mg/dL (7-17); Calcium 8.5 mg/dL (8.4-10.2); Carbon Dioxide 26 mmol/L (22-30); Chloride 105 mmol/L (98-107); Glucose 77 mg/dL (74-99); Potassium 4.2 mmol/L (3.5-5.1); Sodium 140 mmol/L (137-145)
--- NOTE | 2017-05-06 10:16 | P.PN ---
Subjective Progress Note Date: 05/06/17 This is a 77-year-old female, patient of [facility]. She has a known past medical history of dementia, persistent severe hydrocephalus and uterine cancer status post hysterectomy. Patient is a poor historian. Her information was gathered from the chart and ER report. Patient is sitting up in bed comfortably with no evidence of distress. Apparently she was brought in by her who is her caregiver because she's had increasing confusion and one episode of vomiting. There is no diarrhea reported. She had a temp of 103.7 heart rate was 104 white count 15.8 also evidence of an acute renal failure with a creatinine of 1.70 lactic acid elevated at 2.1. Chest x-ray showed evidence of bilateral infiltrates. She was given IV fluids and started on azithromycin and Rocephin. Blood culture and urine culture obtained. Influenza screen was negative. Per ER report reported no complaints of any chest pain shortness of breath. However there is report of that she's not eating and drinking very well at home. Patient shows no evidence of distress. Sitting in bed comfortably 05/06/2017 patient lying in bed comfortably. No evidence of distress. Patient had a temp of 101.4 yesterday morning. Improved with Tylenol. Blood culture pending. No further fever. Chest x-ray from the floor and had shown worsening in the right lower lobe pneumonia. Today's chest x-ray is pending. Patient is eating and drinking. No vomiting or diarrhea reported Objective - Vital Signs Vital signs: Vital Signs Temp 98.5 F 05/06/17 06:36 Pulse 62 05/06/17 06:36 Resp 16 05/06/17 06:36 BP 127/67 05/06/17 06:36 Pulse Ox 95 05/06/17 06:36 Intake & Output 05/05/17 05/06/17 05/06/17 18:59 06:59 18:59 Other: # Voids 2 3 # Bowel Movements 1 - Exam Head normocephalic Neck supple Lungs clear to auscultation bilaterally no wheezing or crackles Heart regular rate and rhythm S1-S2, no rub or gallop Abdomen is soft nontender nondistended positive bowel sounds no hepatosplenomegaly Extremities no edema Neuro awake and alert. Confused - Labs CBC & Chem 7: 05/06/17 07:56 05/06/17 07:56 Labs: Abnormal Lab Results - Last 24 Hours (Table) 05/06/17 Range/Units 07:56 Lymphocytes # 0.6 L (1.0-4.8) k/uL Microbiology - Last 24 Hours (Table) 05/02/17 20:10 Blood Culture - Preliminary Blood No Growth after 72 hours Assessment and Plan Assessment: 1. Pneumonia with sepsis present on admission: Patient started on IV Rocephin and azithromycin. Chest x-ray from yesterday shows a right lower lobe pneumonia that is worsening. Awaiting today's repeat chest x-ray 2. Acute kidney injury with a creatinine of 1.70 on admission. Likely related to dehydration and poor oral intake. Improved with IV fluids. Hep-Lock IV 3. 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 Acute metabolic encephalopathy secondary to pneumonia with sepsis. Mentation has returned to baseline 5. 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 Last computed tomography scan was 03/11/2017 and at that time was seen by neurology. And at that time the had informed him that he did not want any surgical intervention for his for the treatment of the severe hydrocephalus. 6. Fever spike yesterday. Awaiting repeat blood cultures and chest x-ray. Patient has remained afebrile. Consult social work for possible ECF placement GI prophylaxis Pepcid and DVT prophylaxis subcu heparin I performed an examination of the patient and discussed their management with the physician Chain Sales Consultant. I have reviewed the Physician Chain Sales Consultant's notes and agree with the documented findings and plan of care
--- NOTE | 2017-05-06 10:56 | XR ---
EXAMINATION TYPE: XR chest 2V DATE OF EXAM: 05/06/2017 COMPARISON: Chest x-ray from yesterday and older studies. HISTORY: Pneumonia progress study TECHNIQUE: Frontal and lateral views of the chest are obtained. FINDINGS: There is persistent lateral inferior right upper lobe and right basilar opacities. Lateral view appears to show both middle and lower lobe opacities with small bilateral pleural effusions. Th ere is additional left basilar atelectasis The cardiac silhouette size is stable and upper limits of normal. The osseous structures are intact. IMPRESSION: Persistent small bilateral pleural effusions. Stable patchy left basilar atelectasis. Mo re suspicious right upper middle and lower lobe infiltrates all redemonstrated. No significant change from one day earlier.
--- NOTE | 2017-05-06 15:17 | P.PN ---
<Denice Ratliff M - Last Filed: 05/06/17 15:08> Subjective Progress Note Date: 05/06/17 Principal diagnosis: Aspiration pneumonia, right midlung infiltrate Progress note dated 05/04/2017 77-year-old female who I saw yesterday in consultation. She came into the emergency department brought in by her with complaints of mental status changes. She was found to have some mild infiltrative changes on chest x-ray and was admitted with a diagnosis of pneumonia. The patient typically sees Dr. Conn as her primary physician. She is doing better today. Feeling better. Her tells us that he was told by the hospital doctor that she would like to be in the hospital till Saturday. The patient denies any coughing wheezing or shortness of breath. Seemed very talkative. Not wearing any supplemental oxygen. I will repeat an x-ray in the morning. No fever no chills. No chest pain. Progress note dated 05/05/2017 77-year-old female seen in consultation 2 days ago. She came into the emergency by her with complaints of mental status changes. She was found to have some mild infiltrative changes on chest x-ray and was admitted with a diagnosis of pneumonia. The patient's primary care physician is Dr. Terri Conn. The patient looks well. Doing better each day. The patient' s was concerned because she wasn't eating or drinking well at home. Not having any coughing wheezing or profound shortness of breath. Not a particularly good historian, the patient that is. Does not appear to be in any distress. Not coughing up any phlegm. No fever or chills. No nausea vomiting or diarrhea. No chest pain or chest discomfort. On 05/06/2017 patient seen in follow-up. Denies any acute distress, she is currently on room air at pulse ox of 95%. Did have an isolated fever yesterday Tmax 101.4F at 10:30 AM. Work was reviewed, WBC is 5.4, electrolytes and renal panel are within normal limits. Today's chest x-ray was reviewed by Dr. Breaux. His persistent small bilateral pleural effusions, stable patchy left basilar atelectasis, and right upper middle and lower lobe infiltrates stable in comparison to previous exams. Urine culture remained negative. Patient is on combination of Zithromax and Rocephin. Continue with current plan of care, creased activity as tolerated. Maintain aspiration precaution. Denies any fever or chills. Denies any chest pain or chest wall tenderness. Objective - Vital Signs Vital signs: Vital Signs Temp 98.5 F 05/06/17 06:36 Pulse 62 05/06/17 06:36 Resp 16 05/06/17 06:36 BP 127/67 05/06/17 06:36 Pulse Ox 95 05/06/17 06:36 Intake & Output 05/05/17 05/06/17 05/06/17 18:59 06:59 18:59 Other: # Voids 2 3 1 # Bowel Movements 1 - Exam GENERAL EXAM: Alert, frail, 77-year-old white female comfortable in no apparent distress. HEAD: Normocephalic/atraumatic. EYES: Normal reaction of pupils, equal size. Conjunctiva pink, sclera white. NOSE: Clear with pink turbinates. THROAT: No erythema or exudates. NECK: No masses, no JVD, no thyroid enlargement, no adenopathy. CHEST: No chest wall deformity. Symmetrical expansion. LUNGS: Equal air entry with a few scattered bibasilar crackles. No rhonchi no wheezes noted. CVS: Regular rate and rhythm, normal S1 and S2, no gallops, no murmurs, no rubs ABDOMEN: Soft, nontender. No hepatosplenomegaly, normal bowel sounds, no guarding or rigidity. EXTREMITIES: No clubbing, no edema, no cyanosis, 2+ pulses and upper and lower extremities. MUSCULOSKELETAL: Muscle strength and tone normal. SPINE: No scoliosis or deformity SKIN: No rashes CENTRAL NERVOUS SYSTEM: Alert and oriented -3. No focal deficits, tone is normal in all 4 extremities. PSYCHIATRIC: Alert and oriented -3. Appropriate affect. Intact judgment and insight. - Labs CBC & Chem 7: 05/06/17 07:56 05/06/17 07:56 Labs: Abnormal Lab Results - Last 24 Hours (Table) 05/06/17 Range/Units 07:56 Lymphocytes # 0.6 L (1.0-4.8) k/uL Microbiology - Last 24 Hours (Table) 05/02/17 20:10 Blood Culture - Preliminary Blood No Growth after 72 hours Assessment and Plan Plan: Assessment: Possible mild aspiration pneumonia. Chest x-rays really unimpressive. Most significant infiltrate in the right midlung. Dementia History of uterine carcinoma Previous hysterectomy. Previous history of tobacco use Renal insufficiency, not sure if this represents acute or chronic kidney disease. Plan: Continue current treatment, continue Zithromax and Rocephin, activity as tolerated, patient is improving. Maintain aspiration precautions, patient may be considered for discharge in next 24 hours she continues to improve. I performed a history & physical examination of the patient and discussed their management with my nurse practitioner, Denice Ratliff. I reviewed the nurse practitioner's note and agree with the documented findings and plan of care. Lung sounds are positive for a few basilar Crackles. The findings and the impression was discussed with the patient. I attest to the documentation by the nurse practitioner. Time with Patient: Less than 30 <Ted Breaux - Last Filed: 05/06/17 16:20> Objective - Vital Signs Vital signs: Vital Signs Temp 96 F L 05/06/17 15:52 Pulse 72 05/06/17 15:52 Resp 17 05/06/17 15:52 BP 112/58 05/06/17 15:52 Pulse Ox 97 05/06/17 15:52 Intake & Output 05/05/17 05/06/17 05/06/17 18:59 06:59 18:59 Other: # Voids 2 3 1 # Bowel Movements 1 - Labs CBC & Chem 7: 05/06/17 07:56 05/06/17 07:56 Labs: Abnormal Lab Results - Last 24 Hours (Table) 05/06/17 Range/Units 07:56 Lymphocytes # 0.6 L (1.0-4.8) k/uL Microbiology - Last 24 Hours (Table) 05/02/17 20:10 Blood Culture - Preliminary Blood No Growth after 72 hours Assessment and Plan Plan: On today's evaluation, the patient is being seen in the joint evaluation along with the nurse practitioner. We reviewed the chest x-ray. The patient is stable. The patient will continue current antibiotic coverage. Possible discharge in next 24 hours.
[2017-05-06 15:53] VITALS: RESP 17
[2017-05-06] MEDS: AZITHROMYCIN 500 MG TAB PO SCH (20:21)
[2017-05-07 05:56] VITALS: BP 129/60; PULSE 59; TEMP 97.8
[2017-05-07] MEDS: HEPARIN SODIUM,PORCINE 5,000 UNIT/ML 1 ML VIAL SQ SCH (07:44)
[2017-05-07] MEDS: FAMOTIDINE 20 MG TAB PO SCH (07:44)
[2017-05-07] MEDS: cefTRIAXone IN SWFI 1,000 MG/10 ML SYRINGE IVP SCH (07:47)
[2017-05-07 08:06] LABS: Basophils % (A) 1 %; Eosinophils # (A) 0.1 k/uL (0-0.7); Eosinophils % (A) 1 %; HCT 35.7 % (34.0-46.0); Lymphocytes # (A) 0.9 k/uL (1.0-4.8); Lymphocytes % (A) 12 %; MCH 30.1 pg (25.0-35.0); MCHC 33.5 g/dL (31.0-37.0); MCV 89.8 fL (80.0-100.0); Mean Platelet Volume 8.1; Monocytes # (A) 0.5 k/uL (0-1.0); Monocytes % (A) 6 %; Neutrophils # (A) 5.7 k/uL (1.3-7.7); Neutrophils % (A) 78 %; Platelet Count 280 k/uL (150-450); RBC 3.97 m/uL (3.80-5.40); RDW 13.4 % (11.5-15.5); WBC 7.4 k/uL (3.8-10.6)
--- NOTE | 2017-05-07 11:50 | P.DS ---
Providers Date of admission: 05/02/17 21:15 Expected date of discharge: 05/07/17 Attending physician: Ese Boogie Consults: 05/03/17 13:09 Consult Physician Routine Consulting Provider: Jitendra Whitley Consult Reason/Comments: pneumonia Do you want consulting provider notified?: Yes Primary care physician: [facility] Course: Discharge diagnosis 1. Pneumonia with sepsis present on admission: Patient treated with IV Rocephin and azithromycin. Seen by pulmonary service. The recommending Ceftin at discharge. Blood cultures remain negative. 2. Acute kidney injury with a creatinine of 1.70 on admission. Likely related to dehydration and poor oral intake. Improved with IV fluids. Hep-Lock IV 3. 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 Acute metabolic encephalopathy secondary to pneumonia with sepsis. Mentation has returned to baseline 5. 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 Last computed tomography scan was 03/11/2017 and at that time was seen by neurology. And at that time the had informed him that he did not want any surgical intervention for his for the treatment of the severe hydrocephalus. Hospital course This is a 77-year-old female, patient of [facility]. She has a known past medical history of dementia, persistent severe hydrocephalus and uterine cancer status post hysterectomy. Patient is a poor historian. Her information was gathered from the chart and ER report. Patient is sitting up in bed comfortably with no evidence of distress. Apparently she was brought in by her who is her caregiver because she's had increasing confusion and one episode of vomiting. There is no diarrhea reported. She had a temp of 103.7 heart rate was 104 white count 15.8 also evidence of an acute renal failure with a creatinine of 1.70 lactic acid elevated at 2.1. Chest x-ray showed evidence of bilateral infiltrates. She was given IV fluids and started on azithromycin and Rocephin. Blood culture and urine culture obtained. Influenza screen was negative. Per ER report reported no complaints of any chest pain shortness of breath. However there is report of that she's not eating and drinking very well at home. Patient shows no evidence of distress. Sitting in bed comfortably Patient found have evidence of pneumonia on chest x-ray. Started on IV Rocephin and azithromycin in the emergency room. Seen by pulmonary service. She was given IV fluids for her dehydration and acute kidney injury. Her oral intake has improved. She was seen by physical therapy they were initially recommending ECF placement. However is requesting that patient goes home with him. Patient is doing better she has been afebrile. And pulmonary is recommending Ceftin at time of discharge. Patient is medically stable for discharge. We'll have her follow-up with pulmonary service and PCP in office in 1 week I performed an examination of the patient and discussed their management with the physician Forest Fire Fighter. I have reviewed the Physician Forest Fire Fighter's notes and agree with the documented findings and plan of care Patient Condition at Discharge: Stable Plan - Discharge Summary New Discharge Prescriptions: New Cefuroxime [Ceftin] 250 mg PO BID 4 Days #8 tablet Discontinued Ciprofloxacin HCl [Cipro] 500 mg PO Q12HR Discharge Medication List Cefuroxime [Ceftin] 250 mg PO BID 4 Days #8 tablet 05/07/17 [Rx] Follow up Appointment(s)/Referral(s): Daniel Vaz DO [Doctor of Osteopathic Medicine] - 1 Week Terri Conn DO [Primary Care Provider] - 1 Week Patient Instructions/Handouts: Pneumonia (DC) Activity/Diet/Wound Care/Special Instructions: Diet: Regular Activity: as tolerated Discharge Disposition: HOME WITH HOME HEALTH SERVICES
--- NOTE | 2017-05-07 13:09 | P.PN ---
Subjective Progress Note Date: 05/07/17 Principal diagnosis: Aspiration pneumonia, right midlung infiltrate Progress note dated 05/04/2017 77-year-old female who I saw yesterday in consultation. She came into the emergency department brought in by her with complaints of mental status changes. She was found to have some mild infiltrative changes on chest x-ray and was admitted with a diagnosis of pneumonia. The patient typically sees Dr. Conn as her primary physician. She is doing better today. Feeling better. Her tells us that he was told by the hospital doctor that she would like to be in the hospital till Saturday. The patient denies any coughing wheezing or shortness of breath. Seemed very talkative. Not wearing any supplemental oxygen. I will repeat an x-ray in the morning. No fever no chills. No chest pain. Progress note dated 05/05/2017 77-year-old female seen in consultation 2 days ago. She came into the emergency by her with complaints of mental status changes. She was found to have some mild infiltrative changes on chest x-ray and was admitted with a diagnosis of pneumonia. The patient's primary care physician is Dr. Terri Conn. The patient looks well. Doing better each day. The patient' s was concerned because she wasn't eating or drinking well at home. Not having any coughing wheezing or profound shortness of breath. Not a particularly good historian, the patient that is. Does not appear to be in any distress. Not coughing up any phlegm. No fever or chills. No nausea vomiting or diarrhea. No chest pain or chest discomfort. On 05/06/2017 patient seen in follow-up. Denies any acute distress, she is currently on room air at pulse ox of 95%. Did have an isolated fever yesterday Tmax 101.4F at 10:30 AM. Work was reviewed, WBC is 5.4, electrolytes and renal panel are within normal limits. Today's chest x-ray was reviewed by Dr. Breaux. His persistent small bilateral pleural effusions, stable patchy left basilar atelectasis, and right upper middle and lower lobe infiltrates stable in comparison to previous exams. Urine culture remained negative. Patient is on combination of Zithromax and Rocephin. Continue with current plan of care, creased activity as tolerated. Maintain aspiration precaution. Denies any fever or chills. Denies any chest pain or chest wall tenderness. On 05/07/2017 patient seen in follow-up. She is resting in bed, does not appear to be in any acute distress. Lung sounds are clear to auscultation. She denies any fever, denies any chills or chest pain. Vital signs are stable, patient remains afebrile. On room air pulse ox is 95%. Respirations are even and nonlabored. Blood and urine cultures remain negative. Patient has completed 6 days of azithromycin, and 6 days of Rocephin. From pulmonary standpoint she is stable for discharge home today. No acute events overnight, she denies any dyspnea, denies any hemoptysis. Objective - Vital Signs Vital signs: Vital Signs Temp 97.8 F 05/07/17 05:55 Pulse 59 L 05/07/17 05:55 Resp 17 05/07/17 05:55 BP 129/60 05/07/17 05:55 Pulse Ox 95 05/07/17 05:55 Intake & Output 05/06/17 05/07/17 05/07/17 18:59 06:59 18:59 Other: Voiding Method Diaper Incontinent # Voids 1 2 - Exam GENERAL EXAM: Alert, frail, 77-year-old white female comfortable in no apparent distress. HEAD: Normocephalic/atraumatic. EYES: Normal reaction of pupils, equal size. Conjunctiva pink, sclera white. NOSE: Clear with pink turbinates. THROAT: No erythema or exudates. NECK: No masses, no JVD, no thyroid enlargement, no adenopathy. CHEST: No chest wall deformity. Symmetrical expansion. LUNGS: Equal air entry with, no rhonchi no wheezes noted. Clear lung sounds. CVS: Regular rate and rhythm, normal S1 and S2, no gallops, no murmurs, no rubs ABDOMEN: Soft, nontender. No hepatosplenomegaly, normal bowel sounds, no guarding or rigidity. EXTREMITIES: No clubbing, no edema, no cyanosis, 2+ pulses and upper and lower extremities. MUSCULOSKELETAL: Muscle strength and tone normal. SPINE: No scoliosis or deformity SKIN: No rashes CENTRAL NERVOUS SYSTEM: Alert and oriented -3. No focal deficits, tone is normal in all 4 extremities. PSYCHIATRIC: Alert and oriented -3. Appropriate affect. Intact judgment and insight. - Labs CBC & Chem 7: 05/07/17 07:24 05/06/17 07:56 Labs: Abnormal Lab Results - Last 24 Hours (Table) 05/07/17 Range/Units 07:24 Lymphocytes # 0.9 L (1.0-4.8) k/uL Microbiology - Last 24 Hours (Table) 05/02/17 20:10 Blood Culture - Preliminary Blood No Growth after 96 hours 05/05/17 15:43 Blood Culture - Preliminary Blood No Growth after 24 hours 05/05/17 14:26 Blood Culture - Preliminary Blood No Growth after 24 hours Assessment and Plan Plan: Assessment: Possible mild aspiration pneumonia. Chest x-rays really unimpressive. Most significant infiltrate in the right midlung. Dementia History of uterine carcinoma Previous hysterectomy. Previous history of tobacco use Renal insufficiency, not sure if this represents acute or chronic kidney disease. Plan: Patient continues to improve, remains afebrile, hemodynamically stable. She is on room air, denies any fever or chills. Lung sounds are clear to auscultation , no hemoptysis, no chest wall tenderness. Microbiology remains negative thus far. Patient has completed 6 day course of azithromycin, and 6 days of Rocephin. Clinically much improved, patient is stable for discharge home from pulmonary standpoint on 4 more days of oral Ceftin 250 mg by mouth twice a day. Follow-up with Dr. Vaz in the office in one week. I performed a history & physical examination of the patient and discussed their management with my nurse practitioner, Denice Ratliff. I reviewed the nurse practitioner's note and agree with the documented findings and plan of care. Lung sounds are clear. The findings and the impression was discussed with the patient. I attest to the documentation by the nurse practitioner. Time with Patient: Less than 30
== END 2017-05-07 12:21 | disposition home or self-care (01) | DRG 871 ==
LOC: EC 19:26 → 4MS4W 21:15
PROVIDERS: ADMIT Internal Medicine; ATTEND Internal Medicine
DX: A41.9 Sepsis, unspecified organism (principal); G93.41 Metabolic encephalopathy; J69.0 Pneumonitis due to inhalation of food and vomit; N17.9 Acute kidney failure, unspecified; G91.9 Hydrocephalus, unspecified; E86.0 Dehydration; F02.80 Dementia in other diseases classified elsewhere, unspecified severity, without behavioral disturbance, psychotic disturbance, mood disturbance, and anxiety; Z82.49 Family history of ischemic heart disease and other diseases of the circulatory system; Z85.42 Personal history of malignant neoplasm of other parts of uterus; Z87.440 Personal history of urinary (tract) infections; Z87.891 Personal history of nicotine dependence; Z90.710 Acquired absence of both cervix and uterus
CPT/HCPCS: 36415; 71046; 80048; 80053; 81001; 83605; 85025; 87040; 87086; 87502; 96361; 96374; 96375; 99285

== ENCOUNTER 2018-05-28 21:49 | Inpatient (IN) | payer MEDICARE ==
[2018-05-28] MEDS ORDERED: ONDANSETRON 4 MG/2 ML VIAL IVP STA (22:18)
[2018-05-28] MEDS ORDERED: SODIUM CHLORIDE 0.9% 500 ML 500 ML IV STA (22:18)
[2018-05-28] MEDS ORDERED: SODIUM CHLORIDE 0.9% 1,000 ML IV STA ×2 (22:18)
--- NOTE | 2018-05-28 22:29 | ED ---
Weakness HPI - General Chief complaint: Nausea/Vomiting/Diarrhea Stated complaint: vomiting,dementia Time Seen by Provider: 05/28/18 22:17 Source: patient, family, RN notes reviewed, old records reviewed Mode of arrival: wheelchair Limitations: altered mental status - History of Present Illness Initial comments: This is a 78-year-old female the ER for evaluation. Patient is today for evaluation regarding this, fevers and shakes. Patient is brought in by states patient does have sources of prior urinary check infections. No significant change in medication. Patient was acting appropriately all day. Patient's went to get in to decubitus acting appropriately. Patient unable to give history unable to answer questions. History obtained from both staff patient's chart MD Complaint: generalized weakness -: hour(s) Location: generalized Severity: moderate (Altered mental status, dementia baseline) Severity scale (1-10): 5 Consistency: constant Improves with: none Worsens with: none Context: recent illness Associated Symptoms: denies other symptoms - Related Data Home Medications Medication Instructions Recorded Confirmed Memantine [Namenda] 5 mg PO HS 05/28/18 05/28/18 Memantine [Namenda] 10 mg PO DAILY 05/28/18 05/28/18 Allergies Allergy/AdvReac Type Severity Reaction Status Date / Time No Known Allergies Allergy Verified 05/28/18 22:48 Review of Systems ROS Statement: Those systems with pertinent positive or pertinent negative responses have been documented in the HPI. ROS Other: All systems not noted in ROS Statement are negative. Past Medical History Past Medical History: Unable to Obtain, Cancer, Dementia Additional Past Medical History / Comment(s): pt spouse reports that he believes his has a history of uterine cancer with a possible hysterectomy. Pt is a poor historian. History of Any Multi-Drug Resistant Organisms: None Reported Past Surgical History: Unable to Obtain, Hysterectomy Additional Past Surgical History / Comment(s): pt a poor historian. Past Anesthesia/Blood Transfusion Reactions: No Reported Reaction Past Psychological History: No Psychological Hx Reported Smoking Status: Former smoker Past Alcohol Use History: None Reported Past Drug Use History: None Reported - Past Family History Daughter(s) Family Medical History: Cancer Father Family Medical History: Congestive Heart Failure (CHF) General Exam Limitations: no limitations General appearance: alert, in no apparent distress Head exam: Present: atraumatic, normocephalic, normal inspection Eye exam: Present: normal appearance, PERRL, EOMI. Absent: scleral icterus, conjunctival injection, periorbital swelling ENT exam: Present: normal exam, mucous membranes moist Neck exam: Present: normal inspection. Absent: tenderness, meningismus, lymphadenopathy Respiratory exam: Present: normal lung sounds bilaterally. Absent: respiratory distress, wheezes, rales, rhonchi, stridor Cardiovascular Exam: Present: regular rate, normal rhythm, normal heart sounds. Absent: systolic murmur, diastolic murmur, rubs, gallop, clicks GI/Abdominal exam: Present: soft, normal bowel sounds. Absent: distended, tenderness, guarding, rebound, rigid Extremities exam: Present: normal inspection, full ROM, normal capillary refill. Absent: tenderness, pedal edema, joint swelling, calf tenderness Back exam: Present: normal inspection Neurological exam: Present: alert, oriented X3, CN II-XII intact Psychiatric exam: Present: normal affect, normal mood Skin exam: Present: warm, dry, intact, normal color. Absent: rash Course Vital Signs 05/28/18 22:08 Temperature 98.1 F Pulse Rate 92 Respiratory 22 Rate Blood Pressure 146/61 O2 Sat by Pulse 94 L Oximetry - Reevaluation(s) Reevaluation #1: 05/28/18 23:16 Medical record is reviewed and noncontributory Medical Decision Making - Medical Decision Making 78 female the ER for evaluation again remains poor strain. Patient will admit for IV antibiotics and hydration. - Lab Data Result diagrams: 05/28/18 22:55 05/28/18 22:55 Lab Results 05/28/18 05/28/18 05/28/18 Range/Units 22:55 22:55 22:55 WBC 14.0 H (3.8-10.6) k/uL RBC 4.19 (3.80-5.40) m/uL Hgb 12.0 (11.4-16.0) gm/dL Hct 38.7 (34.0-46.0) % MCV 92.4 (80.0-100.0) fL MCH 28.6 (25.0-35.0) pg MCHC 31.0 (31.0-37.0) g/dL RDW 13.7 (11.5-15.5) % Plt Count 260 (150-450) k/uL Neutrophils % 87 % Lymphocytes % 6 % Monocytes % 5 % Eosinophils % 0 % Basophils % 0 % Neutrophils # 12.1 H (1.3-7.7) k/uL Lymphocytes # 0.9 L (1.0-4.8) k/uL Monocytes # 0.7 (0-1.0) k/uL Eosinophils # 0.0 (0-0.7) k/uL Basophils # 0.1 (0-0.2) k/uL PT 10.3 (9.0-12.0) sec INR 1.0 (<1.2) APTT 22.4 (22.0-30.0) sec Sodium 142 (137-145) mmol/L Potassium 4.3 (3.5-5.1) mmol/L Chloride 106 (98-107) mmol/L Carbon Dioxide 26 (22-30) mmol/L Anion Gap 10 mmol/L BUN 24 H (7-17) mg/dL Creatinine 1.03 (0.52-1.04) mg/dL Est GFR (CKD-EPI)AfAm 61 (>60 ml/min/1.73 sqM) Est GFR (CKD-EPI)NonAf 53 (>60 ml/min/1.73 sqM) Glucose 106 H (74-99) mg/dL Calcium 9.5 (8.4-10.2) mg/dL Phosphorus 3.1 (2.5-4.5) mg/dL Magnesium 1.9 (1.6-2.3) mg/dL Total Bilirubin 0.6 (0.2-1.3) mg/dL AST 20 (14-36) U/L ALT 24 (9-52) U/L Alkaline Phosphatase 70 (38-126) U/L Troponin I (0.000-0.034) ng/mL Total Protein 7.2 (6.3-8.2) g/dL Albumin 4.1 (3.5-5.0) g/dL Urine Color Urine Appearance (Clear) Urine pH (5.0-8.0) Ur Specific [place] (1.001-1.035) Urine Protein (Negative) Urine Glucose (UA) (Negative) Urine Ketones (Negative) Urine Blood (Negative) Urine Nitrite (Negative) Urine Bilirubin (Negative) Urine Urobilinogen (<2.0) mg/dL Ur Leukocyte Esterase (Negative) Urine RBC (0-5) /hpf Urine WBC (0-5) /hpf Ur Squamous Epith Cells (0-4) /hpf Hyaline Casts (0-2) /lpf Urine Mucus (None) /hpf 05/28/18 05/28/18 Range/Units 22:55 22:55 WBC (3.8-10.6) k/uL RBC (3.80-5.40) m/uL Hgb (11.4-16.0) gm/dL Hct (34.0-46.0) % MCV (80.0-100.0) fL MCH (25.0-35.0) pg MCHC (31.0-37.0) g/dL RDW (11.5-15.5) % Plt Count (150-450) k/uL Neutrophils % % Lymphocytes % % Monocytes % % Eosinophils % % Basophils % % Neutrophils # (1.3-7.7) k/uL Lymphocytes # (1.0-4.8) k/uL Monocytes # (0-1.0) k/uL Eosinophils # (0-0.7) k/uL Basophils # (0-0.2) k/uL PT (9.0-12.0) sec INR (<1.2) APTT (22.0-30.0) sec Sodium (137-145) mmol/L Potassium (3.5-5.1) mmol/L Chloride (98-107) mmol/L Carbon Dioxide (22-30) mmol/L Anion Gap mmol/L BUN (7-17) mg/dL Creatinine (0.52-1.04) mg/dL Est GFR (CKD-EPI)AfAm (>60 ml/min/1.73 sqM) Est GFR (CKD-EPI)NonAf (>60 ml/min/1.73 sqM) Glucose (74-99) mg/dL Calcium (8.4-10.2) mg/dL Phosphorus (2.5-4.5) mg/dL Magnesium (1.6-2.3) mg/dL Total Bilirubin (0.2-1.3) mg/dL AST (14-36) U/L ALT (9-52) U/L Alkaline Phosphatase (38-126) U/L Troponin I <0.012 (0.000-0.034) ng/mL Total Protein (6.3-8.2) g/dL Albumin (3.5-5.0) g/dL Urine Color Yellow Urine Appearance Cloudy H (Clear) Urine pH 7.5 (5.0-8.0) Ur Specific [place] 1.020 (1.001-1.035) Urine Protein 2+ H (Negative) Urine Glucose (UA) Negative (Negative) Urine Ketones Negative (Negative) Urine Blood Small H (Negative) Urine Nitrite Negative (Negative) Urine Bilirubin Negative (Negative) Urine Urobilinogen <2.0 (<2.0) mg/dL Ur Leukocyte Esterase Large H (Negative) Urine RBC 2 (0-5) /hpf Urine WBC 128 H (0-5) /hpf Ur Squamous Epith Cells 1 (0-4) /hpf Hyaline Casts 1 (0-2) /lpf Urine Mucus Occasional H (None) /hpf - EKG Data -: EKG Interpreted by Me (EKG shows sinus rhythm rate of 88, CT 124, QRS 74, QTC 396) - Radiology Data Radiology results: report reviewed (Chest x-rays negative for acute disease), i mage reviewed Disposition Clinical Impression: Urinary tract infection with fever, Dementia, Altered mental status, Urinary tract infection, Dehydration Disposition: ADMITTED IP TO THIS HOSP Condition: Fair Is patient prescribed a controlled substance at d/c from ED?: No Referrals: Terri Conn DO [Primary Care Provider] - 1-2 days
[2018-05-28 23:31] LABS: Basophils # (A) 0.1 k/uL (0-0.2); Basophils % (A) 0 %; Eosinophils % (A) 0 %; HCT 38.7 % (34.0-46.0); Lymphocytes # (A) 0.9 k/uL (1.0-4.8); Lymphocytes % (A) 6 %; MCH 28.6 pg (25.0-35.0); MCV 92.4 fL (80.0-100.0); Mean Platelet Volume 8.5; Monocytes # (A) 0.7 k/uL (0-1.0); Monocytes % (A) 5 %; Neutrophils # (A) 12.1 k/uL (1.3-7.7); Neutrophils % (A) 87 %; Platelet Count 260 k/uL (150-450); RBC 4.19 m/uL (3.80-5.40); RDW 13.7 % (11.5-15.5)
[2018-05-28 23:33] LABS: Appearance,Urine Cloudy (Clear); Bilirubin,Urine Negative (Negative); Blood,Urine Small (Negative); Color,Urine Yellow; Glucose,Urine (UA) Negative (Negative); Hyaline Casts,Urine 1 /lpf (0-2); Ketones,Urine Negative (Negative); Leukocyte Esterase,Urine Large (Negative); Mucus,Urine Occasional /hpf; Nitrite,Urine Negative (Negative); PH, Urine 7.5 (5.0-8.0); Protein,Urine 2+ (Negative); RBC,Urine 2 /hpf (0-5); Squamous Epithelial Cell,Urine 1 /hpf (0-4); Urobilinogen,Urine <2.0 mg/dL (<2.0); WBC,Urine 128 /hpf (0-5)
--- NOTE | 2018-05-28 23:40 | XR ---
EXAM: XR Chest, 2 Views CLINICAL HISTORY: ITS.REASON XR Reason: Weakness TECHNIQUE: Frontal and lateral views of the chest. COMPARISON: Chest radiograph on 05/06/2017 FINDINGS: Hardware: None. Lungs/pleura: Mild left basilar atelectasis. No focal consolidation. Question trace pleural effusion. Heart/mediastinum: Atherosclerotic calcifications in the aorta. No cardiomegaly. Soft tissues: Unremarkable. Bones: No acute fracture. Degenerative changes of the acromioclavicular joints and spine. Upper abdomen: Normal. IMPRESSION: No focal consolidation. Question trace pleural effusions.
[2018-05-28 23:41] LABS: Albumin 4.1 g/dL (3.5-5.0); Calcium 9.5 mg/dL (8.4-10.2); Magnesium 1.9 mg/dL (1.6-2.3); Phosphorus 3.1 mg/dL (2.5-4.5); Potassium 4.3 mmol/L (3.5-5.1); Total Bilirubin 0.6 mg/dL (0.2-1.3); Total Protein 7.2 g/dL (6.3-8.2)
[2018-05-28 23:44] LABS: Partial Thromboplastin Time 22.4 sec (22.0-30.0); Prothrombin Time 10.3 sec (9.0-12.0)
[2018-05-29] MEDS ORDERED: ACETAMINOPHEN TAB 325 MG TAB PO PRN (01:33)
[2018-05-29] MEDS ORDERED: IBUPROFEN 400 MG TAB PO PRN (01:33)
[2018-05-29 10:37] LABS: Basophils % (A) 0 %; Eosinophils # (A) 0.1 k/uL (0-0.7); Eosinophils % (A) 1 %; HCT 35.2 % (34.0-46.0); HGB 11.2 gm/dL (11.4-16.0); Hypochromasia Slight; Lymphocytes # (A) 0.5 k/uL (1.0-4.8); Lymphocytes % (A) 6 %; MCH 29.9 pg (25.0-35.0); MCHC 31.8 g/dL (31.0-37.0); MCV 93.9 fL (80.0-100.0); Mean Platelet Volume 8.5; Monocytes # (A) 0.2 k/uL (0-1.0); Monocytes % (A) 2 %; Neutrophils # (A) 7.2 k/uL (1.3-7.7); Neutrophils % (A) 90 %; Platelet Count 212 k/uL (150-450); RBC 3.75 m/uL (3.80-5.40)
[2018-05-29 11:05] LABS: Albumin 3.1 g/dL (3.5-5.0); Calcium 8.3 mg/dL (8.4-10.2); Potassium 4.3 mmol/L (3.5-5.1); Total Bilirubin 1.2 mg/dL (0.2-1.3); Total Protein 5.8 g/dL (6.3-8.2)
[2018-05-29] MEDS ORDERED: ONDANSETRON 4 MG/2 ML VIAL IVP PRN (11:42)
--- NOTE | 2018-05-29 11:51 | P.HPIM ---
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 Patient is a poor historian history was obtained from ER report. Per ER report patient was brought in by her due to fevers, shakes and increasing confusion at home. Patient's is essentially nonverbal and unable to answer questions. She is awake no evidence of any distress. Per nursing they are reporting diarrhea stool for C. diff was ordered. She was found to have evidence of a UTI. Started on Rocephin in the ER. She had a temp of 100.5 white count 14 and lactic 2.2. She received IV fluids and antibiotics. Chest x-ray showing possible trace pleural effusion. Creatinine 1.030-1.08. EKG showing sinus rhythm with PVCs partial digitalis effect. Repeat EKG ordered. Review of Systems Please refer to HPI otherwise unremarkable Past Medical History Past Medical History: Unable to Obtain, Cancer, Dementia Additional Past Medical History / Comment(s): pt spouse reports that he believes his has a history of uterine cancer with a possible hysterectomy. Pt is a poor historian. History of Any Multi-Drug Resistant Organisms: None Reported Past Surgical History: Unable to Obtain, Hysterectomy Additional Past Surgical History / Comment(s): pt a poor historian. Past Anesthesia/Blood Transfusion Reactions: No Reported Reaction, Unable to Obtain Past Psychological History: No Psychological Hx Reported Smoking Status: Former smoker Past Alcohol Use History: None Reported Additional Past Alcohol Use History / Comment(s): Pt refused smoking cessation information. Strat smoking as a teenager Past Drug Use History: None Reported - Past Family History Daughter(s) Family Medical History: Cancer Father Family Medical History: Congestive Heart Failure (CHF) Medications and Allergies Home Medications Medication Instructions Recorded Confirmed Type Memantine [Namenda] 5 mg PO HS 05/28/18 05/28/18 History Memantine [Namenda] 10 mg PO DAILY 05/28/18 05/28/18 History Allergies Allergy/AdvReac Type Severity Reaction Status Date / Time No Known Allergies Allergy Verified 05/28/18 22:48 Physical Exam Vitals: Vital Signs Temp Pulse Pulse Resp BP BP Pulse Ox 05/29/18 07:42 97.7 F 62 16 103/53 94 L 05/29/18 03:30 16 03/28/19 01:40 98.8 F 79 16 167/64 97 05/29/18 01:01 100.5 F H 90 18 108/53 100 05/28/18 22:08 98.1 F 92 22 146/61 94 L Intake and Output 05/28/18 05/29/18 05/29/18 22:59 06:59 14:59 Other: Voiding Method Diaper Diaper Incontinent Incontinent # Voids 2 Weight 45.359 kg Head normocephalic Neck supple Lungs clear to auscultation bilaterally no wheezing or crackles Heart regular rate and rhythm S1-S2, no rub or gallop Abdomen is soft nontender nondistended positive bowel sounds no hepatosplenomegaly Extremities no edema Neuro she is awake confused and nonverbal Results CBC & Chem 7: 05/29/18 10:24 05/29/18 10:24 Labs: Abnormal Lab Results - Last 24 Hours (Table) 05/28/18 05/28/18 05/28/18 Range/Units 22:55 22:55 22:55 WBC 14.0 H (3.8-10.6) k/uL RBC (3.80-5.40) m/uL Hgb (11.4-16.0) gm/dL Neutrophils # 12.1 H (1.3-7.7) k/uL Lymphocytes # 0.9 L (1.0-4.8) k/uL Chloride (98-107) mmol/L BUN 24 H (7-17) mg/dL Creatinine (0.52-1.04) mg/dL Glucose 106 H (74-99) mg/dL Plasma Lactic Acid Angus 2.2 H* (0.7-2.0) mmol/L Calcium (8.4-10.2) mg/dL Total Protein (6.3-8.2) g/dL Albumin (3.5-5.0) g/dL Urine Appearance (Clear) Urine Protein (Negative) Urine Blood (Negative) Ur Leukocyte Esterase (Negative) Urine WBC (0-5) /hpf Urine Mucus (None) /hpf 05/28/18 05/29/18 05/29/18 Range/Units 22:55 10:24 10:24 WBC (3.8-10.6) k/uL RBC 3.75 L (3.80-5.40) m/uL Hgb 11.2 L (11.4-16.0) gm/dL Neutrophils # (1.3-7.7) k/uL Lymphocytes # 0.5 L (1.0-4.8) k/uL Chloride 111 H (98-107) mmol/L BUN 20 H (7-17) mg/dL Creatinine 1.08 H (0.52-1.04) mg/dL Glucose (74-99) mg/dL Plasma Lactic Acid [place] (0.7-2.0) mmol/L Calcium 8.3 L (8.4-10.2) mg/dL Total Protein 5.8 L (6.3-8.2) g/dL Albumin 3.1 L (3.5-5.0) g/dL Urine Appearance Cloudy H (Clear) Urine Protein 2+ H (Negative) Urine Blood Small H (Negative) Ur Leukocyte Esterase Large H (Negative) Urine WBC 128 H (0-5) /hpf Urine Mucus Occasional H (None) /hpf Microbiology - Last 24 Hours (Table) 05/28/18 22:55 Urine Culture - Preliminary Urine,Catheterized Thrombosis Risk Factor Assmnt - Choose All That Apply Any of the Below Risk Factors Present?: Yes Each Risk Factor Represents 3 Points: Age 75 years or older Thrombosis Risk Factor Assessment Total Risk Factor Score: 3 Thrombosis Risk Factor Assessment Level: Moderate Risk Assessment and Plan Assessment: 1. Altered mental status changes likely due to metabolic encephalopathy secondary to UTI 2. UTI: Urine culture pending. Continue Rocephin 3. Diarrhea check stool for C. diff 4. Sepsis present on admission likely related to UTI. Patient had temperature 100.5 white count 14 lactic 2.2 5. Acute kidney injury likely due to sepsis and diarrhea. Continue with IV fluids normal saline at 50 mL/hr. Repeat labs in a.m. 6. 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 History of persistent severe hydrocephalus. Last computed tomography scan of the brain was in 03/11/2017 at that time patient was seen by neurology. Also had informed neurology that he did not want any surgical intervention for his for treatment of the severe hydrocephalus GI prophylaxis Pepcid and DVT prophylaxis subcu heparin Time with Patient: Greater than 30 (Greater than 50% of the total time spent in counseling and coordination of care.I performed an examination of the patient and discussed their management with the physician Biofuels Plant Operations Engineer. I have reviewed the Physician Biofuels Plant Operations Engineer's notes and agree with the documented findings and plan of care)
[2018-05-29] MEDS: MEMANTINE 10 MG TAB PO SCH (12:43)
[2018-05-29] MEDS: SODIUM CHLORIDE 0.9% 1,000 ML IV SCH ×2 (12:49→20:48)
[2018-05-29 13:40] VITALS: BMI 18.8
[2018-05-29] MEDS: HEPARIN SODIUM,PORCINE 5,000 UNIT/ML 1 ML VIAL SQ SCH (20:45)
[2018-05-29] MEDS: MEMANTINE 5 MG TAB PO SCH (20:45)
[2018-05-30] MEDS: FAMOTIDINE 20 MG TAB PO SCH (07:43)
[2018-05-30] MEDS: HEPARIN SODIUM,PORCINE 5,000 UNIT/ML 1 ML VIAL SQ SCH ×2 (07:43→20:17)
[2018-05-30] MEDS: MEMANTINE 10 MG TAB PO SCH (07:43)
[2018-05-30 08:17] LABS: Basophils # (A) 0.1 k/uL (0-0.2); Basophils % (A) 0 %; Eosinophils % (A) 0 %; HGB 10.7 gm/dL (11.4-16.0); Lymphocytes # (A) 1.3 k/uL (1.0-4.8); Lymphocytes % (A) 7 %; MCH 28.7 pg (25.0-35.0); MCHC 31.5 g/dL (31.0-37.0); MCV 90.9 fL (80.0-100.0); Mean Platelet Volume 8.6; Monocytes # (A) 0.7 k/uL (0-1.0); Monocytes % (A) 4 %; Neutrophils # (A) 16.1 k/uL (1.3-7.7); Neutrophils % (A) 88 %; Platelet Count 202 k/uL (150-450); RBC 3.74 m/uL (3.80-5.40); RDW 13.8 % (11.5-15.5); WBC 18.3 k/uL (3.8-10.6)
[2018-05-30 08:30] LABS: Albumin 2.9 g/dL (3.5-5.0); Calcium 8.5 mg/dL (8.4-10.2); Potassium 3.6 mmol/L (3.5-5.1); Total Bilirubin 0.9 mg/dL (0.2-1.3); Total Protein 5.6 g/dL (6.3-8.2)
--- NOTE | 2018-05-30 12:26 | P.PN ---
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 Patient is a poor historian history was obtained from ER report. Per ER report patient was brought in by her due to fevers, shakes and increasing confusion at home. Patient's is essenti ally nonverbal and unable to answer questions. She is awake no evidence of any distress. Per nursing they are reporting diarrhea stool for C. diff was ordered. She was found to have evidence of a UTI. Started on Rocephin in the ER. She had a temp of 100.5 white count 14 and lactic 2.2. She received IV fluids and antibiotics. Chest x-ray showing possible trace pleural effusion. Creatinine 1.030-1.08. EKG showing sinus rhythm with PVCs partial digitalis effect. Repeat EKG ordered. 05/30/2018 patient is more awake today and alert. She's up and ambulating. Discuss case with patient's . She is closer to her baseline. He does report that she usually can talk a few sentences. Awaiting urine culture. White count did jump to 18.3. Blood pressure 95/57. Nursing staff will be repeating blood pressures. No evidence of distress Objective - Vital Signs Vital signs: Vital Signs Temp 97.8 F 05/30/18 08:57 Pulse 84 05/30/18 08:57 Resp 17 05/30/18 08:57 BP 95/57 05/30/18 08:57 Pulse Ox 96 05/30/18 08:57 Intake & Output 05/29/18 05/30/18 05/30/18 18:59 06:59 18:59 Intake Total 318 Balance 318 Weight 45.359 kg Intake: Oral 118 Other 200 Other: Voiding Method Diaper Diaper Incontinent Incontinent # Voids 1 2 # Bowel Movements 1 - Exam Head normocephalic Neck supple Lungs clear to auscultation bilaterally no wheezing or crackles Heart regular rate and rhythm S1-S2, no rub or gallop Abdomen is soft nontender nondistended positive bowel sounds no hepatosplenomegaly Extremities no edema Neuro alert and orientated to 1 her name - Labs CBC & Chem 7: 05/30/18 07:44 05/30/18 07:44 Labs: Abnormal Lab Results - Last 24 Hours (Table) 05/30/18 05/30/18 Range/Units 07:44 07:44 WBC 18.3 H (3.8-10.6) k/uL RBC 3.74 L (3.80-5.40) m/uL Hgb 10.7 L (11.4-16.0) gm/dL Neutrophils # 16.1 H (1.3-7.7) k/uL Chloride 111 H (98-107) mmol/L BUN 25 H (7-17) mg/dL Glucose 107 H (74-99) mg/dL AST 67 H (14-36) U/L Total Protein 5.6 L (6.3-8.2) g/dL Albumin 2.9 L (3.5-5.0) g/dL Microbiology - Last 24 Hours (Table) 05/28/18 22:55 Urine Culture - Preliminary Urine,Catheterized Gram Neg Bacilli Assessment and Plan Assessment: 1. Altered mental status changes likely due to metabolic encephalopathy secondary to UTI 2. UTI: Urine culture pending. Continue Rocephin 3. Diarrhea improved. Stool for C. diff negative. 4. Sepsis present on admission likely related to UTI. Patient had temperature 100.5 white count 14 lactic 2.2 5. Acute kidney injury likely due to sepsis and diarrhea. Continue with IV fluids normal saline at 50 mL/hr. creatinine down to 0.97 6. 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 History of persistent severe hydrocephalus. Last computed tomography scan of the brain was in 03/11/2017 at that time patient was seen by neurology. Discussed patient's severe hydrocephalus with . The reports that he had talked to a neurosurgeon a few years ago regarding the severe hydrocephalus. And at that time did not want to proceed with any further surgical intervention. still does not want any intervention on the hydrocephalus. He wants her to be treated for the urinary tract infection. He is noted improvement already in her mentation. And is aware that there is no neurologist available at this hospital. 9. Leukocytosis continue to monitor GI prophylaxis Pepcid and DVT prophylaxis subcu heparin I performed an examination of the patient and discussed their management with the physician Supervisor [employer]ile Processing. I have reviewed the Physician Supervisor [employer] Processing's notes and agree with the documented findings and plan of care
[2018-05-30] MEDS: MEMANTINE 5 MG TAB PO SCH (20:17)
[2018-05-31] MEDS: SODIUM CHLORIDE 0.9% 1,000 ML IV SCH (06:11)
[2018-05-31 08:29] LABS: Basophils # (A) 0.1 k/uL (0-0.2); Basophils % (A) 0 %; Eosinophils # (A) 0.1 k/uL (0-0.7); Eosinophils % (A) 1 %; HCT 32.2 % (34.0-46.0); HGB 9.9 gm/dL (11.4-16.0); Lymphocytes # (A) 1.3 k/uL (1.0-4.8); Lymphocytes % (A) 12 %; MCH 27.6 pg (25.0-35.0); MCHC 30.6 g/dL (31.0-37.0); Mean Platelet Volume 8.6; Monocytes # (A) 0.5 k/uL (0-1.0); Monocytes % (A) 5 %; Neutrophils # (A) 8.6 k/uL (1.3-7.7); Neutrophils % (A) 80 %; Platelet Count 194 k/uL (150-450); RBC 3.58 m/uL (3.80-5.40); RDW 13.8 % (11.5-15.5); WBC 10.7 k/uL (3.8-10.6)
[2018-05-31 08:32] LABS: Albumin 2.6 g/dL (3.5-5.0); Calcium 8.4 mg/dL (8.4-10.2); Potassium 3.7 mmol/L (3.5-5.1); Total Bilirubin 0.7 mg/dL (0.2-1.3); Total Protein 5.2 g/dL (6.3-8.2)
[2018-05-31] MEDS: HEPARIN SODIUM,PORCINE 5,000 UNIT/ML 1 ML VIAL SQ SCH ×2 (08:36→21:59)
[2018-05-31] MEDS: FAMOTIDINE 20 MG TAB PO SCH (08:36)
[2018-05-31] MEDS: MEMANTINE 10 MG TAB PO SCH (08:36)
--- NOTE | 2018-05-31 16:15 | P.PN ---
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 Patient is a poor historian history was obtained from ER report. Per ER report patient was brought in by her due to fevers, shakes and increasing confusion at home. Patient's is essenti ally nonverbal and unable to answer questions. She is awake no evidence of any distress. Per nursing they are reporting diarrhea stool for C. diff was ordered. She was found to have evidence of a UTI. Started on Rocephin in the ER. She had a temp of 100.5 white count 14 and lactic 2.2. She received IV fluids and antibiotics. Chest x-ray showing possible trace pleural effusion. Creatinine 1.030-1.08. EKG showing sinus rhythm with PVCs partial digitalis effect. Repeat EKG ordered. 05/30/2018 patient is more awake today and alert. She's up and ambulating. Discuss case with patient's . She is closer to her baseline. He does report that she usually can talk a few sentences. Awaiting urine culture. White count did jump to 18.3. Blood pressure 95/57. Nursing staff will be repeating blood pressures. No evidence of distress On 05/31/2018 patient is alert confused in no apparent distress, states she is close to her baseline there is no fever or chills no headache no dizziness no chest pain no shortness of breath no cough no nausea or vomiting she had multiple loose bowel movements no urinary symptoms Objective - Vital Signs Vital signs: Vital Signs Temp 97.5 F L 05/31/18 15:20 Pulse 67 05/31/18 15:20 Resp 12 05/31/18 07:00 BP 150/66 05/31/18 15:20 Pulse Ox 92 L 05/31/18 15:20 Intake & Output 05/30/18 05/31/18 05/31/18 18:59 06:59 18:59 Intake Total 690 450 700 Balance 690 450 700 Intake: Intake, IV Titration 450 450 400 Amount Sodium Chloride 0.9% 1, 400 450 350 000 ml @ 50 mls/hr IV . Q20H [facility] Rx#:[id number] cefTRIAXone 1 gm In 50 50 Sodium Chloride 0.9% 50 ml @ 100 mls/hr IVPB Q12HR [facility] Rx#:[id number] Oral 240 300 Other: Voiding Method Diaper Diaper Diaper Incontinent Incontinent Incontinent # Voids 2 2 # Bowel Movements 1 - Exam Head normocephalic and atraumatic Neck supple no JVD no goiter Lungs clear to auscultation bilaterally no wheezing or crackles Heart regular rate and rhythm S1-S2, no rub or gallop Abdomen is soft nontender nondistended positive bowel sounds no hepatosplenomegaly Extremities no edema no cyanosis or clubbing Neuro alert and orientated to 1 her name - Labs CBC & Chem 7: 05/31/18 07:54 05/31/18 07:54 Labs: Abnormal Lab Results - Last 24 Hours (Table) 05/31/18 05/31/18 Range/Units 07:54 07:54 WBC 10.7 H (3.8-10.6) k/uL RBC 3.58 L (3.80-5.40) m/uL Hgb 9.9 L (11.4-16.0) gm/dL Hct 32.2 L (34.0-46.0) % MCHC 30.6 L (31.0-37.0) g/dL Neutrophils # 8.6 H (1.3-7.7) k/uL Chloride 113 H (98-107) mmol/L BUN 22 H (7-17) mg/dL Total Protein 5.2 L (6.3-8.2) g/dL Albumin 2.6 L (3.5-5.0) g/dL Microbiology - Last 24 Hours (Table) 05/28/18 22:55 Urine Culture - Final Urine,Catheterized Escherichia coli Assessment and Plan Plan: 1. Altered mental status changes likely due to metabolic encephalopathy secondary to UTI 2. UTI: Urine culture pending. Continue Rocephin 3. Diarrhea improved. Stool for C. diff negative. 4. Sepsis present on admission likely related to UTI. Patient had temperature 100.5 white count 14 lactic 2.2 5. Acute kidney injury likely due to sepsis and diarrhea. Continue with IV fluids normal saline at 50 mL/hr. creatinine down to 0.97 6. 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 History of persistent severe hydrocephalus. Last computed tomography scan of the brain was in 03/11/2017 at that time patient was seen by neurology. Discussed patient's severe hydrocephalus with . The reports that he had talked to a neurosurgeon a few years ago regarding the severe hydrocephalus. And at that time did not want to proceed with any further surgical intervention. still does not want any intervention on the hydrocephalus. He wants her to be treated for the urinary tract infection. He is noted improvement already in her mentation. And is aware that there is no neurologist available at this hospital. 9. Leukocytosis continue to monitor Patient is improving gradually possible discharge to home tomorrow GI prophylaxis Pepcid and DVT prophylaxis subcu heparin
[2018-05-31] MEDS: MEMANTINE 5 MG TAB PO SCH (22:00)
[2018-06-01] MEDS: SODIUM CHLORIDE 0.9% 1,000 ML IV SCH ×2 (01:58→22:15)
[2018-06-01 08:01] LABS: Basophils % (A) 0 %; Eosinophils # (A) 0.1 k/uL (0-0.7); Eosinophils % (A) 1 %; HCT 32.2 % (34.0-46.0); HGB 10.4 gm/dL (11.4-16.0); Lymphocytes # (A) 1.1 k/uL (1.0-4.8); Lymphocytes % (A) 15 %; MCH 29.4 pg (25.0-35.0); MCHC 32.3 g/dL (31.0-37.0); Mean Platelet Volume 9.2; Monocytes # (A) 0.4 k/uL (0-1.0); Monocytes % (A) 6 %; Neutrophils % (A) 76 %; Platelet Count 202 k/uL (150-450); RBC 3.54 m/uL (3.80-5.40); RDW 13.7 % (11.5-15.5); WBC 7.8 k/uL (3.8-10.6)
[2018-06-01 08:18] LABS: Albumin 2.6 g/dL (3.5-5.0); Calcium 8.1 mg/dL (8.4-10.2); Potassium 3.9 mmol/L (3.5-5.1); Total Bilirubin 0.8 mg/dL (0.2-1.3); Total Protein 5.2 g/dL (6.3-8.2)
[2018-06-01] MEDS: FAMOTIDINE 20 MG TAB PO SCH (08:43)
[2018-06-01] MEDS: MEMANTINE 10 MG TAB PO SCH (08:43)
[2018-06-01] MEDS: HEPARIN SODIUM,PORCINE 5,000 UNIT/ML 1 ML VIAL SQ SCH ×2 (08:43→22:16)
--- NOTE | 2018-06-01 14:03 | P.PN ---
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 Patient is a poor historian history was obtained from ER report. Per ER report patient was brought in by her due to fevers, shakes and increasing confusion at home. Patient's is essenti ally nonverbal and unable to answer questions. She is awake no evidence of any distress. Per nursing they are reporting diarrhea stool for C. diff was ordered. She was found to have evidence of a UTI. Started on Rocephin in the ER. She had a temp of 100.5 white count 14 and lactic 2.2. She received IV fluids and antibiotics. Chest x-ray showing possible trace pleural effusion. Creatinine 1.030-1.08. EKG showing sinus rhythm with PVCs partial digitalis effect. Repeat EKG ordered. 05/30/2018 patient is more awake today and alert. She's up and ambulating. Discuss case with patient's . She is closer to her baseline. He does report that she usually can talk a few sentences. Awaiting urine culture. White count did jump to 18.3. Blood pressure 95/57. Nursing staff will be repeating blood pressures. No evidence of distress On 05/31/2018 patient is alert confused in no apparent distress, states she is close to her baseline there is no fever or chills no headache no dizziness no chest pain no shortness of breath no cough no nausea or vomiting she had multiple loose bowel movements no urinary symptoms On 06/01/2018 patient was seen and examined on the medical floor she is alert confused in no apparent distress there is no fever or chills no headache or d izziness no chest pain no shortness of breath no cough no nausea or vomiting no abdominal pain no diarrhea and no urinary symptoms Objective - Vital Signs Vital signs: Vital Signs Temp 98.7 F 06/01/18 07:02 Pulse 57 L 06/01/18 07:02 Resp 12 06/01/18 07:02 BP 114/48 06/01/18 07:02 Pulse Ox 92 L 06/01/18 07:02 Intake & Output 05/31/18 06/01/18 06/01/18 18:59 06:59 18:59 Intake Total 700 400 Balance 700 400 Intake: Intake, IV Titration 400 400 Amount Sodium Chloride 0.9% 1, 350 350 000 ml @ 50 mls/hr IV . Q20H PENDING SALE TO [facility] Rx#:[id number] cefTRIAXone 1 gm In 50 50 Sodium Chloride 0.9% 50 ml @ 100 mls/hr IVPB Q12HR PENDING SALE TO [facility] Rx#:[id number] Oral 300 Other: Voiding Method Diaper Diaper Diaper Incontinent Incontinent Incontinent # Voids 1 - Exam Head normocephalic and atraumatic Neck supple no JVD no goiter Lungs clear to auscultation bilaterally no wheezing or crackles Heart regular rate and rhythm S1-S2, no rub or gallop Abdomen is soft nontender nondistended positive bowel sounds no hepatosplenomegaly Extremities no edema no cyanosis or clubbing Neuro alert and orientated to 1 her name - Labs CBC & Chem 7: 06/01/18 06:47 06/01/18 06:47 Labs: Abnormal Lab Results - Last 24 Hours (Table) 06/01/18 06/01/18 Range/Units 06:47 06:47 RBC 3.54 L (3.80-5.40) m/uL Hgb 10.4 L (11.4-16.0) gm/dL Hct 32.2 L (34.0-46.0) % Chloride 111 H (98-107) mmol/L Calcium 8.1 L (8.4-10.2) mg/dL Total Protein 5.2 L (6.3-8.2) g/dL Albumin 2.6 L (3.5-5.0) g/dL Assessment and Plan Plan: 1. Altered mental status changes likely due to metabolic encephalopathy secondary to UTI 2. UTI: Urine culture positive for E. coli Continue Rocephin 3. Diarrhea improved. Stool for C. diff negative. 4. Sepsis present on admission likely related to UTI. Patient had temperature 100.5 white count 14 lactic 2.2 5. Acute kidney injury likely due to sepsis and diarrhea. Continue with IV fluids normal saline at 50 mL/hr. creatinine down to 0.97 6. 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 History of persistent severe hydrocephalus. Last computed tomography scan of the brain was in 03/11/2017 at that time patient was seen by neurology. Discussed patient's severe hydrocephalus with . The reports that he had talked to a neurosurgeon a few years ago regarding the severe hydrocephalus. And at that time did not want to proceed with any further surgical intervention. still does not want any intervention on the hydrocephalus. He wants her to be treated for the urinary tract infection. He is noted improvement already in her mentation. And is aware that there is no neurologist available at this hospital. 9. Leukocytosis continue to monitor Patient is improving gradually possible discharge to home tomorrow GI prophylaxis Pepcid and DVT prophylaxis subcu heparin Patient is improving white blood count is normalizing Kidney function is improved Possible discharge to home tomorrow if stable
[2018-06-01] MEDS ORDERED: ALPRAZolam 0.25 MG TAB PO PRN (19:20)
[2018-06-01] MEDS: MEMANTINE 5 MG TAB PO SCH ×3 (22:16→22:22)
[2018-06-02] MEDS: FAMOTIDINE 20 MG TAB PO SCH (08:21)
[2018-06-02] MEDS: MEMANTINE 10 MG TAB PO SCH (08:21)
[2018-06-02] MEDS: HEPARIN SODIUM,PORCINE 5,000 UNIT/ML 1 ML VIAL SQ SCH (08:25)
[2018-06-02 08:54] VITALS: BP 110/55; PULSE 55; RESP 16; TEMP 97.8
[2018-06-02 09:22] LABS: Basophils % (A) 0 %; Eosinophils # (A) 0.1 k/uL (0-0.7); Eosinophils % (A) 2 %; HCT 32.8 % (34.0-46.0); HGB 10.3 gm/dL (11.4-16.0); Lymphocytes # (A) 1.2 k/uL (1.0-4.8); Lymphocytes % (A) 17 %; MCH 28.6 pg (25.0-35.0); MCHC 31.6 g/dL (31.0-37.0); MCV 90.7 fL (80.0-100.0); Monocytes # (A) 0.5 k/uL (0-1.0); Monocytes % (A) 8 %; Neutrophils # (A) 4.6 k/uL (1.3-7.7); Neutrophils % (A) 70 %; Platelet Count 221 k/uL (150-450); RBC 3.61 m/uL (3.80-5.40); RDW 13.6 % (11.5-15.5); WBC 6.6 k/uL (3.8-10.6)
[2018-06-02 09:59] LABS: Albumin 2.6 g/dL (3.5-5.0); Calcium 8.1 mg/dL (8.4-10.2); Potassium 3.7 mmol/L (3.5-5.1); Total Bilirubin 0.5 mg/dL (0.2-1.3); Total Protein 5.2 g/dL (6.3-8.2)
--- NOTE | 2018-06-02 13:44 | P.DS ---
Providers Date of admission: 05/30/18 12:50 Expected date of discharge: 06/02/18 Attending physician: Ese Boogie Primary care physician: Terri Conn Hospital Course: Discharge diagnosis 1. Altered mental status changes likely due to metabolic encephalopathy secondary to UTI 2. UTI: Urine culture positive for E. coli we'll change antibiotic to Ceftin for 5 more days 3. Diarrhea improved. Stool for C. diff negative. 4. Sepsis present on admission likely related to UTI. Patient had temperature 100.5 white count 14 lactic 2.2 5. Acute kidney injury likely due to sepsis and diarrhea. Improved with IV fluids. creatinine down to 0.97 6. 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 History of persistent severe hydrocephalus. Last computed tomography scan of the brain was in 03/11/2017 at that time patient was seen by neurology. Discussed patient's severe hydrocephalus with . The reports that he had talked to a neurosurgeon a few years ago regarding the severe hydrocephalus. And at that time did not want to proceed with any further surgical intervention. still does not want any intervention on the hydrocephalus. He wants her to be treated for the urinary tract infection. He is noted improvement already in her mentation. And is aware that there is no neurologist available at this hospital. 9. 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 Patient is a poor historian history was obtained from ER report. Per ER report patient was brought in by her due to fevers, shakes and increasing confusion at home. Patient's is essentially nonverbal and unable to answer questions. She is awake no evidence of any distress. Per nursing they are reporting diarrhea stool for C. diff was ordered. She was found to have evidence of a UTI. Started on Rocephin in the ER. She had a temp of 100.5 white count 14 and lactic 2.2. She received IV fluids and antibiotics. Chest x-ray showing possible trace pleural effusion. Creatinine 1.030-1.08. EKG showing sinus rhythm with PVCs partial digitalis effect. Repeat EKG ordered. 05/30/2018 patient is more awake today and alert. She's up and ambulating. Discuss case with patient's . She is closer to her baseline. He does report that she usually can talk a few sentences. Awaiting urine culture. White count did jump to 18.3. Blood pressure 95/57. Nursing staff will be repeating blood pressures. No evidence of distress On 05/31/2018 patient is alert confused in no apparent distress, states she is close to her baseline there is no fever or chills no headache no dizziness no chest pain no shortness of breath no cough no nausea or vomiting she had multiple loose bowel movements no urinary symptoms On 06/01/2018 patient was seen and examined on the medical floor she is alert confused in no apparent distress there is no fever or chills no headache or dizziness no chest pain no shortness of breath no cough no nausea or vomiting no abdominal pain no diarrhea and no urinary symptoms 06/02/2018 patient is medically stable for discharge. She was treated for UTI. Her mentation has returned back to her baseline. She'll go home with her who takes care of her. She'll continue to Ceftin for 5 more days to complete antibiotic treatment for her UTI with E. coli. Patient is medically stable for discharge. We'll have her follow-up with Dr. Conn in 3 days I performed an examination of the patient and discussed their management with the physician Ornamental Rail Installer. I have reviewed the Physician Ornamental [employer] Installer's notes and agree with the documented findings and plan of care Patient Condition at Discharge: Stable Plan - Discharge Summary Discharge Rx Participant: No New Discharge Prescriptions: Continue Memantine [Namenda] 10 mg PO DAILY Memantine [Namenda] 5 mg PO HS Discharge Medication List Memantine [Namenda] 5 mg PO HS 05/28/18 [History] Memantine [Namenda] 10 mg PO DAILY 05/28/18 [History] Follow up Appointment(s)/Referral(s): Terri Conn DO [Primary Care Provider] - 3 Days Activity/Diet/Wound Care/Special Instructions: Diet: regular Activity: as tolerated Discharge Disposition: HOME SELF-CARE
== END 2018-06-02 14:45 | disposition home or self-care (01) | DRG 871 ==
LOC: EC 21:49 → 4SSUR 05-29 00:02 → OBSVTOIN 05-30 12:50
PROVIDERS: ADMIT Internal Medicine; ATTEND Internal Medicine
DX: A41.51 Sepsis due to Escherichia coli [E. coli] (principal); G93.41 Metabolic encephalopathy; N39.0 Urinary tract infection, site not specified; N17.9 Acute kidney failure, unspecified; G91.8 Other hydrocephalus; E86.0 Dehydration; F02.80 Dementia in other diseases classified elsewhere, unspecified severity, without behavioral disturbance, psychotic disturbance, mood disturbance, and anxiety; I49.3 Ventricular premature depolarization; Z79.899 Other long term (current) drug therapy; Z82.49 Family history of ischemic heart disease and other diseases of the circulatory system; Z87.891 Personal history of nicotine dependence; Z90.710 Acquired absence of both cervix and uterus; Z85.42 Personal history of malignant neoplasm of other parts of uterus; R19.7 Diarrhea, unspecified; Z80.9 Family history of malignant neoplasm, unspecified
CPT/HCPCS: 36415; 71046; 80053; 81001; 83605; 83735; 84100; 84484; 85025; 85610; 85730; 87077; 87086; 87186; 87324; 93005; 96361; 96365; 96375; 99285

== ENCOUNTER 2020-05-01 16:28 | Inpatient (IN) | payer MEDICARE ==
[2020-05-01] MEDS ORDERED: SODIUM CHLORIDE 0.9% 500 ML 500 ML IV ONE (16:51)
[2020-05-01 17:29] LABS: Basophils # (A) 0.1 k/uL (0-0.2); Basophils % (A) 1 %; Eosinophils # (A) 0.1 k/uL (0-0.7); Eosinophils % (A) 1 %; HCT 38.9 % (34.0-46.0); HGB 12.8 gm/dL (11.4-16.0); Lymphocytes # (A) 0.5 k/uL (1.0-4.8); Lymphocytes % (A) 4 %; MCH 29.4 pg (25.0-35.0); MCHC 32.9 g/dL (31.0-37.0); MCV 89.3 fL (80.0-100.0); Mean Platelet Volume 8.6; Monocytes # (A) 0.6 k/uL (0-1.0); Monocytes % (A) 5 %; Neutrophils # (A) 10.5 k/uL (1.3-7.7); Neutrophils % (A) 89 %; Platelet Count 276 k/uL (150-450); RBC 4.36 m/uL (3.80-5.40); RDW 12.7 % (11.5-15.5); WBC 11.9 k/uL (3.8-10.6)
[2020-05-01 17:33] LABS: Appearance,Urine Clear (Clear); Bilirubin,Urine Negative (Negative); Blood,Urine Trace (Negative); Color,Urine Yellow; Glucose,Urine (UA) Negative (Negative); Hyaline Casts,Urine 1 /lpf (0-2); Ketones,Urine Negative (Negative); Leukocyte Esterase,Urine Negative (Negative); Mucus,Urine Rare /hpf; Nitrite,Urine Negative (Negative); Protein,Urine 1+ (Negative); RBC,Urine 5 /hpf (0-5); Squamous Epithelial Cell,Urine 1 /hpf (0-4); WBC,Urine 1 /hpf (0-5)
[2020-05-01 17:39] LABS: ALT 18 U/L (4-34); AST 22 U/L (14-36); Acetaminophen <10.0 ug/mL; African American GFR (CKD) 55 (>60 ml/min/1.73 sqM); Albumin 3.8 g/dL (3.5-5.0); Alcohol <10 mg/dL; Alkaline Phosphatase 67 U/L (38-126); Anion Gap 10 mmol/L; Blood Urea Nitrogen 25 mg/dL (7-17); Calcium 9.3 mg/dL (8.4-10.2); Carbon Dioxide 27 mmol/L (22-30); Chloride 105 mmol/L (98-107); Creatine Kinase 93 U/L (30-135); Glucose 122 mg/dL (74-99); Non-African American GFR(CKD) 48 (>60 ml/min/1.73 sqM); Potassium 4.5 mmol/L (3.5-5.1); Salicylate <1.0 mg/dL; Sodium 142 mmol/L (137-145); Total Bilirubin 0.8 mg/dL (0.2-1.3); Total Protein 7.2 g/dL (6.3-8.2)
[2020-05-01 17:40] LABS: Cocaine Screen,Urine Not Detected (NotDetected); Phencyclidine Screen,Urine Not Detected (NotDetected); Urn Cannabinoid Scrn Not Detected (NotDetected)
[2020-05-01 17:41] LABS: Amphetamine Screen,Urine Not Detected (NotDetected); Barbiturate Screen,Urine Not Detected (NotDetected); Benzodiazepines Screen,Urine Not Detected (NotDetected); Methadone Screen, Urine Not Detected (NotDetected); Opiate Screen,Urine Not Detected (NotDetected); Oxycodone Screen, Urine Not Detected (NotDetected); Tricyclic Antidepressant,Urine Not Detected (NotDetected)
--- NOTE | 2020-05-01 17:44 | XR ---
EXAMINATION TYPE: XR chest 2V DATE OF EXAM: 05/01/2020 COMPARISON: 05/28/2018 HISTORY: Dementia. Altered mental status. Weakness. TECHNIQUE: FINDINGS: There is coarse interstitial density in the lungs and more noticeable in the left lower lob e. There is no heart failure. Heart size is normal. There is no pleural effusion. There are no hilar masses. Thoracic aorta is atheromatous. IMPRESSION: Interstitial mild fibrotic changes. No heart failure. Lung markings increased slightly co mpared to old exam.
[2020-05-01 17:46] LABS: Prothrombin Time 10.7 sec (9.0-12.0)
[2020-05-01 18:06] LABS: Partial Thromboplastin Time 20.3 sec (22.0-30.0)
--- NOTE | 2020-05-01 18:35 | CT ---
EXAMINATION TYPE: CT brain shefali sanchez con DATE OF EXAM: 05/01/2020 COMPARISON: CT brain 03/11/2017 HISTORY: UTI, AMS CT DLP: 1369.3 mGycm Automated exposure control for dose reduction was used. There is severe hydrocephalus. Fourth ventricle is fairly normal in size. There is significant enlarg ement of the lateral and third ventricles. There is no midline shift. There is no sign of intracrania l hemorrhage. Calvarium is intact. Cervical vertebra have normal alignment. 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 T here is no cervical compression fracture. Posterior elements are intact. IMPRESSION: Moderately severe hydrocephalus without change. No acute intracranial abnormality. No acute abnormality of the cervical spine. No fracture.
--- NOTE | 2020-05-01 18:42 | CT ---
EXAMINATION TYPE: CT abdomen pelvis w con DATE OF EXAM: 05/01/2020 COMPARISON: None HISTORY: UTI, AMS hx dementia CT DLP: 486.5 mGycm Automated exposure control for dose reduction was used. CONTRAST: Performed with IV Contrast, patient injected with 80 mL of Isovue 300. Images were obtained from the diaphragm to the floor the pelvis with IV contrast. There is infiltrate and atelectasis in both lower lobes. Heart size is normal. There is no pericardia l effusion. Abdominal aorta is atheromatous. There are numerous cysts throughout the liver that measu re less than 1 cm. The bile ducts are not dilated. Gallbladder appears normal. Spleen is intact. Stom ach is intact. There is no adrenal mass. Kidneys show satisfactory contrast opacification. There is normal excretion on the delayed images. There is no hydronephrosis. There is 5 cm cortical cyst upper pole right kidn ey. There is no retroperitoneal adenopathy. Bladder distends smoothly. There is retained fecal materi al in the rectum that measures 8 cm. There is no inguinal hernia. Appendix is not seen. There is no s ign of thickened appendix. There is no ascites or free air. There is no mesenteric edema. There are distended air-filled loops o f small bowel in the midabdomen up to 3 cm. There is thoracolumbar dextrorotoscoliosis. The bony pelvis is intact. Proximal femurs and hip joints are intact. There is no lumbar compression fracture. IMPRESSION: Rectal fecal impaction. Distended small bowel could relate to partial obstruction or small bowel ileu s. Numerous small hepatic cysts. Right renal dominant cortical cyst. Bilateral lower lobe pneumonia and atelectasis. This is worse on the right side.
[2020-05-01] MEDS ORDERED: AZITHROMYCIN 500 MG in SODIUM CHLORIDE 0.9% 250 ML IVPB STA (19:04)
[2020-05-01] MEDS ORDERED: cefTRIAXone IN SWFI 1,000 MG/10 ML SYRINGE IVP STA (19:04)
[2020-05-01] MEDS ORDERED: NA PHOS,M-B/NA PHOS,DI-BA 133 ML ENEMA RECTAL STA (19:05)
[2020-05-01] MEDS ORDERED: NALOXONE 0.4 MG/ML 1 ML VIAL IV PRN (19:06)
[2020-05-01] MEDS ORDERED: ACETAMINOPHEN TAB 325 MG TAB PO PRN (19:06)
--- NOTE | 2020-05-01 19:06 | ED ---
Altered Mental Status HPI - General Chief Complaint: Altered Mental Status Stated Complaint: ams Time Seen by Provider: 05/01/20 16:40 Source: family Mode of arrival: wheelchair Limitations: altered mental status - History of Present Illness Initial Comments: Patient is a 80-year-old female past history of dementia who presents to the emergency department accompanied by her . states the patient has had issues with confusion as of recently. He did take to her primary care doctor and diagnosed her with urinary tract infection. States she's been on Keflex however has not had any improvement in her symptoms. He reports that the patient has gotten more weak and has had difficulty ambulating. At baseline the patient normally knows who she is and where she is at. Even this has gotten difficult for her. No recent head trauma. Denies any neck stiffness. No chest pain or shortness of breath. No fevers. Patient denies any abdominal pain. denies any changes in her bowel or bladder habits. Remainder of HPI is limited because of the patient's current medical condition - Related Data Home Medications Medication Instructions Recorded Confirmed Memantine [Namenda] 5 mg PO HS 05/28/18 05/01/20 Memantine [Namenda] 10 mg PO DAILY 05/28/18 05/01/20 Ergocalciferol [Vitamin D2 (1250 1,250 mcg PO FR 05/01/20 05/01/20 Mcg = 80731 Iu)] Previous Rx's Medication Instructions Recorded Acetaminophen Tab [Tylenol] 650 mg PO Q6HR PRN tab 05/03/20 Amoxic-Pot Clav 875-125Mg 1 tab PO Q12HR 3 Days #6 tab 05/03/20 [Augmentin 875-125] Sennosides-Docusate Sodium 2 tab PO BID #60 tablet 05/03/20 [Senokot-S] Allergies Allergy/AdvReac Type Severity Reaction Status Date / Time No Known Allergies Allergy Verified 05/01/20 17:51 Review of Systems ROS Statement: Those systems with pertinent positive or pertinent negative responses have been documented in the HPI. ROS Other: All systems not noted in ROS Statement are negative. Past Medical History Past Medical History: Unable to Obtain, Cancer, Dementia Additional Past Medical History / Comment(s): pt spouse reports that he believes his has a history of uterine cancer with a possible hysterectomy. Pt is a poor historian. History of Any Multi-Drug Resistant Organisms: None Reported Past Surgical History: Unable to Obtain, Hysterectomy Additional Past Surgical History / Comment(s): pt a poor historian. Past Anesthesia/Blood Transfusion Reactions: No Reported Reaction, Unable to Obtain Past Psychological History: No Psychological Hx Reported Past Alcohol Use History: None Reported Past Drug Use History: None Reported - Past Family History Daughter(s) Family Medical History: Cancer Father Family Medical History: Congestive Heart Failure (CHF) General Exam Limitations: altered mental status General appearance: alert, in no apparent distress Head exam: Present: atraumatic, normocephalic, normal inspection Eye exam: Present: normal appearance, PERRL, EOMI. Absent: scleral icterus, conjunctival injection, periorbital swelling ENT exam: Present: mucous membranes dry Respiratory exam: Present: normal lung sounds bilaterally. Absent: respiratory distress, wheezes, rales, rhonchi, stridor Cardiovascular Exam: Present: normal rhythm, tachycardia GI/Abdominal exam: Present: soft, normal bowel sounds. Absent: distended, ten derness, guarding, rebound, rigid Extremities exam: Present: other (skin tear left lateral humerus and left dorsal forearm) Neurological exam: Present: alert, other (oriented to self) Psychiatric exam: Present: flat affect Skin exam: Present: warm, dry Course Vital Signs 05/01/20 16:38 Temperature 97.7 F Pulse Rate 113 H Blood Pressure 141/76 O2 Sat by Pulse 93 L Oximetry Medical Decision Making - Medical Decision Making On arrival patient was placed into room 2. A thorough history and physical exam was performed. IV is established. Laboratory studies are conducted and revie sat. Creatinine is 1.1. He is mildly elevated from patient's previous. CT of the patient's brain demonstrates hydrocephalus is no acute change. Chest x-ray demonstrates interstitial mild fibrotic changes. No heart failure. CT the patient's abdomen and pelvis is performed which demonstrates rectal fecal impaction. Distended small bowel related to partial small bowel obstruction or ileus. Bilateral lower lobe pneumonia and atelectasis. Patient was given a dose of Rocephin and azithromycin. Blood cultures are obtained. Patient started on 70 mL of saline per hour. fleet emema ordered. Spoke with the patient's . I did recommend admission. I spoke with Dr. Benitez who agreed to admit the patient. Patient awaiting a bed on the floor. - Lab Data Result diagrams: 05/03/20 05:24 05/03/20 05:24 Lab Results 05/01/20 05/01/20 05/01/20 Range/Units 17:10 17:10 17:10 WBC 11.9 H (3.8-10.6) k/uL RBC 4.36 (3.80-5.40) m/uL Hgb 12.8 (11.4-16.0) gm/dL Hct 38.9 (34.0-46.0) % MCV 89.3 (80.0-100.0) fL MCH 29.4 (25.0-35.0) pg MCHC 32.9 (31.0-37.0) g/dL RDW 12.7 (11.5-15.5) % Plt Count 276 (150-450) k/uL MPV 8.6 Neutrophils % 89 % Lymphocytes % 4 % Monocytes % 5 % Eosinophils % 1 % Basophils % 1 % Neutrophils # 10.5 H (1.3-7.7) k/uL Lymphocytes # 0.5 L (1.0-4.8) k/uL Monocytes # 0.6 (0-1.0) k/uL Eosinophils # 0.1 (0-0.7) k/uL Basophils # 0.1 (0-0.2) k/uL PT 10.7 (9.0-12.0) sec INR 1.0 (<1.2) APTT 20.3 L (22.0-30.0) sec Sodium (137-145) mmol/L Potassium (3.5-5.1) mmol/L Chloride (98-107) mmol/L Carbon Dioxide (22-30) mmol/L Anion Gap mmol/L BUN (7-17) mg/dL Creatinine (0.52-1.04) mg/dL Est GFR (CKD-EPI)AfAm (>60 ml/min/1.73 sqM) Est GFR (CKD-EPI)NonAf (>60 ml/min/1.73 sqM) Glucose (74-99) mg/dL Calcium (8.4-10.2) mg/dL Total Bilirubin (0.2-1.3) mg/dL AST (14-36) U/L ALT (4-34) U/L Alkaline Phosphatase (38-126) U/L Ammonia (<30) umol/L Creatine Kinase (30-135) U/L Troponin I (0.000-0.034) ng/mL Total Protein (6.3-8.2) g/dL Albumin (3.5-5.0) g/dL TSH (0.465-4.680) mIU/L Urine Color Yellow Urine Appearance Clear (Clear) Urine pH 6.0 (5.0-8.0) Ur Specific Grant 1.020 (1.001-1.035) Urine Protein 1+ H (Negative) Urine Glucose (UA) Negative (Negative) Urine Ketones Negative (Negative) Urine Blood Trace H (Negative) Urine Nitrite Negative (Negative) Urine Bilirubin Negative (Negative) Urine Urobilinogen 2.0 (<2.0) mg/dL Ur Leukocyte Esterase Negative (Negative) Urine RBC 5 (0-5) /hpf Urine WBC 1 (0-5) /hpf Ur Squamous Epith Cells 1 (0-4) /hpf Hyaline Casts 1 (0-2) /lpf Urine Mucus Rare H (None) /hpf Salicylates mg/dL Urine Opiates Screen Not Detected (NotDetected) Ur Oxycodone Screen Not Detected (NotDetected) Urine Methadone Screen Not Detected (NotDetected) Ur Propoxyphene Screen Not Detected (NotDetected) Acetaminophen ug/mL Ur Barbiturates Screen Not Detected (NotDetected) U Tricyclic Antidepress Not Detected (NotDetected) Ur Phencyclidine Scrn Not Detected (NotDetected) Ur Amphetamines Screen Not Detected (NotDetected) U Methamphetamines Scrn Not Detected (NotDetected) U Benzodiazepines Scrn Not Detected (NotDetected) Urine Cocaine Screen Not Detected (NotDetected) U Marijuana (THC) Screen Not Detected (NotDetected) Serum Alcohol mg/dL Coronavirus (PCR) (Not Detectd) 05/01/20 05/01/20 05/01/20 Range/Units 17:10 17:10 17:10 WBC (3.8-10.6) k/uL RBC (3.80-5.40) m/uL Hgb (11.4-16.0) gm/dL Hct (34.0-46.0) % MCV (80.0-100.0) fL MCH (25.0-35.0) pg MCHC (31.0-37.0) g/dL RDW (11.5-15.5) % Plt Count (150-450) k/uL MPV Neutrophils % % Lymphocytes % % Monocytes % % Eosinophils % % Basophils % % Neutrophils # (1.3-7.7) k/uL Lymphocytes # (1.0-4.8) k/uL Monocytes # (0-1.0) k/uL Eosinophils # (0-0.7) k/uL Basophils # (0-0.2) k/uL PT (9.0-12.0) sec INR (<1.2) APTT (22.0-30.0) sec Sodium 142 (137-145) mmol/L Potassium 4.5 (3.5-5.1) mmol/L Chloride 105 (98-107) mmol/L Carbon Dioxide 27 (22-30) mmol/L Anion Gap 10 mmol/L BUN 25 H (7-17) mg/dL Creatinine 1.11 H (0.52-1.04) mg/dL Est GFR (CKD-EPI)AfAm 55 (>60 ml/min/1.73 sqM) Est GFR (CKD-EPI)NonAf 48 (>60 ml/min/1.73 sqM) Glucose 122 H (74-99) mg/dL Calcium 9.3 (8.4-10.2) mg/dL Total Bilirubin 0.8 (0.2-1.3) mg/dL AST 22 (14-36) U/L ALT 18 (4-34) U/L Alkaline Phosphatase 67 (38-126) U/L Ammonia <9 (<30) umol/L Creatine Kinase 93 (30-135) U/L Troponin I 0.016 (0.000-0.034) ng/mL Total Protein 7.2 (6.3-8.2) g/dL Albumin 3.8 (3.5-5.0) g/dL TSH 3.490 (0.465-4.680) mIU/L Urine Color Urine Appearance (Clear) Urine pH (5.0-8.0) Ur Specific Grant (1.001-1.035) Urine Protein (Negative) Urine Glucose (UA) (Negative) Urine Ketones (Negative) Urine Blood (Negative) Urine Nitrite (Negative) Urine Bilirubin (Negative) Urine Urobilinogen (<2.0) mg/dL Ur Leukocyte Esterase (Negative) Urine RBC (0-5) /hpf Urine WBC (0-5) /hpf Ur Squamous Epith Cells (0-4) /hpf Hyaline Casts (0-2) /lpf Urine Mucus (None) /hpf Salicylates <1.0 mg/dL Urine Opiates Screen (NotDetected) Ur Oxycodone Screen (NotDetected) Urine Methadone Screen (NotDetected) Ur Propoxyphene Screen (NotDetected) Acetaminophen <10.0 ug/mL Ur Barbiturates Screen (NotDetected) U Tricyclic Antidepress (NotDetected) Ur Phencyclidine Scrn (NotDetected) Ur Amphetamines Screen (NotDetected) U Methamphetamines Scrn (NotDetected) U Benzodiazepines Scrn (NotDetected) Urine Cocaine Screen (NotDetected) U Marijuana (THC) Screen (NotDetected) Serum Alcohol <10 mg/dL Coronavirus (PCR) (Not Detectd) 05/01/20 Range/Units 18:18 WBC (3.8-10.6) k/uL RBC (3.80-5.40) m/uL Hgb (11.4-16.0) gm/dL Hct (34.0-46.0) % MCV (80.0-100.0) fL MCH (25.0-35.0) pg MCHC (31.0-37.0) g/dL RDW (11.5-15.5) % Plt Count (150-450) k/uL MPV Neutrophils % % Lymphocytes % % Monocytes % % Eosinophils % % Basophils % % Neutrophils # (1.3-7.7) k/uL Lymphocytes # (1.0-4.8) k/uL Monocytes # (0-1.0) k/uL Eosinophils # (0-0.7) k/uL Basophils # (0-0.2) k/uL PT (9.0-12.0) sec INR (<1.2) APTT (22.0-30.0) sec Sodium (137-145) mmol/L Potassium (3.5-5.1) mmol/L Chloride (98-107) mmol/L Carbon Dioxide (22-30) mmol/L Anion Gap mmol/L BUN (7-17) mg/dL Creatinine (0.52-1.04) mg/dL Est GFR (CKD-EPI)AfAm (>60 ml/min/1.73 sqM) Est GFR (CKD-EPI)NonAf (>60 ml/min/1.73 sqM) Glucose (74-99) mg/dL Calcium (8.4-10.2) mg/dL Total Bilirubin (0.2-1.3) mg/dL AST (14-36) U/L ALT (4-34) U/L Alkaline Phosphatase (38-126) U/L Ammonia (<30) umol/L Creatine Kinase (30-135) U/L Troponin I (0.000-0.034) ng/mL Total Protein (6.3-8.2) g/dL Albumin (3.5-5.0) g/dL TSH (0.465-4.680) mIU/L Urine Color Urine Appearance (Clear) Urine pH (5.0-8.0) Ur Specific Grant (1.001-1.035) Urine Protein (Negative) Urine Glucose (UA) (Negative) Urine Ketones (Negative) Urine Blood (Negative) Urine Nitrite (Negative) Urine Bilirubin (Negative) Urine Urobilinogen (<2.0) mg/dL Ur Leukocyte Esterase (Negative) Urine RBC (0-5) /hpf Urine WBC (0-5) /hpf Ur Squamous Epith Cells (0-4) /hpf Hyaline Casts (0-2) /lpf Urine Mucus (None) /hpf Salicylates mg/dL Urine Opiates Screen (NotDetected) Ur Oxycodone Screen (NotDetected) Urine Methadone Screen (NotDetected) Ur Propoxyphene Screen (NotDetected) Acetaminophen ug/mL Ur Barbiturates Screen (NotDetected) U Tricyclic Antidepress (NotDetected) Ur Phencyclidine Scrn (NotDetected) Ur Amphetamines Screen (NotDetected) U Methamphetamines Scrn (NotDetected) U Benzodiazepines Scrn (NotDetected) Urine Cocaine Screen (NotDetected) U Marijuana (THC) Screen (NotDetected) Serum Alcohol mg/dL Coronavirus (PCR) Not Detected (Not Detectd) - EKG Data EKG Comments: EKG demonstrates normal sinus rhythm with ventricular rate 95. WA interval 120. QRS 72. QTC of 412. No acute ST segment elevations or depressions Disposition Clinical Impression: Acute encephalopathy, Pneumonia, Dehydration, Acute kidney injury, Fecal impaction in rectum Disposition: ADMITTED IP TO THIS HOSP Condition: Stable Is patient prescribed a controlled substance at d/c from ED?: No Decision to Admit Reason: Admit from EC Decision Date: 05/01/20 Decision Time: 19:05
[2020-05-01] MEDS: SODIUM CHLORIDE 0.9% 1,000 ML IV SCH (19:10)
[2020-05-01] MEDS ORDERED: ALPRAZolam 0.25 MG TAB PO PRN (20:57)
[2020-05-01] MEDS: MEMANTINE 5 MG TAB PO SCH (21:12)
[2020-05-01] MEDS: HEPARIN SODIUM,PORCINE 5,000 UNIT/ML 1 ML VIAL SQ SCH (21:21)
[2020-05-01] MEDS: PIPERACILLIN-TAZOBACTAM 3.375 GM in SODIUM CHLORIDE 0.9% 100 ML IVPB SCH (22:58)
--- NOTE | 2020-05-01 23:11 | HP ---
HISTORY AND PHYSICAL I am covering for Dr. Forrest. DATE OF SERVICE: 05/01/2020 CHIEF COMPLAINT: Change in mental status and pneumonia. HISTORY OF PRESENT ILLNESS: This 80-year-old woman with a past medical history of multiple medical issues, including dementia, history of possible uterine cancer with hysterectomy, history of previous UTI, history of previous kidney injury and dementia and history of hydrocephalus, being followed by Dr. Terri Conn in the outpatient setting, apparently had some change in mental status, features of UTI recently and has been actually obtain antibiotics and antibiotic course was finished yesterday. Today the patient was noted to have some change in mental status, and the was concerned and the patient taken to [facility] and admitted for evaluation and treatment. A chest x-ray done in the ER which I reviewed personally showed some interstitial markings and possible pneumonia. A detailed history could not be taken from the patient. Most of the history taken from my discussion with the staff, ER physician and review of chart and discussion with the family at the bedside. The CT scan showed moderately severe hydrocephalus. Abdominal and pelvis CAT scan was also done which showed rectal fecal impaction and distended small bowel. There is no history of fever, rigors or chills. PAST MEDICAL HISTORY: History of recent UTI, history of dementia, multiple medical problems as mentioned earlier. MEDICATIONS: Namenda and vitamin D2, doses are reviewed. ALLERGIES: None. Family history, social history and review of systems could not be taken because of change in mental status. PHYSICAL EXAMINATION: Patient is stuporous. Pulse is 113. Blood pressure 141/76, respiration 20, temperature 97.7, pulse ox 98% on room air. HEENT is conjunctivae normal. NECK: No JVD. CARDIOVASCULAR: S1, S2 muffled. RESPIRATIONS: Breath sounds diminished in the bases. A few scattered rhonchi. ABDOMEN: Soft, nontender. LEGS: No edema. No swelling. NERVOUS SYSTEM: Higher functions as mentioned earlier. Moves all four limbs. No focal motor, sensory deficits. LYMPHATICS: No lymph nodes palpable in the neck, axillae or groin. SKIN: No ulcer, no rash and no bleeding. JOINTS: No active deforming arthropathy. LABS: WBC 11.9, and UA noted and creatinine is 1.11. ASSESSMENT: 1. Possible acute bilateral pneumonia with sepsis, present on admission. 2. Change in mental status acute on chronic metabolic encephalopathy. 3. Increased creatinine with acute renal failure. 4. Increased WBC. 5. History of recent urinary tract infection. 6. Dementia. 7. History of possible uterine cancer. 8. History of renal failure. RECOMMENDATIONS AND DISCUSSION: This 80-year-old woman with multiple medical issues, we will monitor the patient closely. We will gently hydrate the patient. We will also recommend broad-spectrum IV antibiotics. Follow the cultures and resume the home medications. DVT prophylaxis. Incentive spirometry. Prognosis guarded because of multiple complex medical issues and Dr. Forrest following. A copy of this dictation being forwarded to Dr. Conn who is the primary physician. MMODL / IJN: [id number] /
[2020-05-02] MEDS: HEPARIN SODIUM,PORCINE 5,000 UNIT/ML 1 ML VIAL SQ SCH ×2 (07:30→20:47)
[2020-05-02] MEDS: PANTOPRAZOLE 40 MG TABLET PO SCH (07:30)
[2020-05-02] MEDS: MEMANTINE 10 MG TAB PO SCH (07:30)
[2020-05-02] MEDS: PIPERACILLIN-TAZOBACTAM 3.375 GM in SODIUM CHLORIDE 0.9% 100 ML IVPB SCH ×3 (07:30→23:58)
[2020-05-02] MEDS: SODIUM CHLORIDE 0.9% 1,000 ML IV SCH ×2 (07:32→23:58)
[2020-05-02 09:11] LABS: Basophils # (A) 0.05 X 10*3/uL (0.00-0.10); Basophils % (A) 0.6 %; Eosinophils # (A) 0.06 X 10*3/uL (0.04-0.35); Eosinophils % (A) 0.7 %; HCT 34.7 % (37.2-46.3); HGB 11.3 g/dL (12.0-15.0); Lymphocytes # (A) 1.28 X 10*3/uL (0.90-5.00); Lymphocytes % (A) 14.2 %; MCH 30.5 pg (27.0-32.0); MCHC 32.6 g/dL (32.0-37.0); MCV 93.5 fL (80.0-97.0); Mean Platelet Volume 11.8 fL (9.5-12.2); Monocytes # (A) 0.89 X 10*3/uL (0.20-1.00); Monocytes % (A) 9.8 %; Neutrophils # (A) 6.74 X 10*3/uL (1.80-7.70); Neutrophils % (A) 74.5 %; Platelet Count 246 X 10*3/uL (140-440); RBC 3.71 X 10*6/uL (4.10-5.20); RDW 13.1 % (11.5-14.5); WBC 9.04 X 10*3/uL (4.50-10.00)
[2020-05-02 09:25] LABS: Potassium 3.9 mmol/L (3.5-5.5)
[2020-05-02 09:26] LABS: African American GFR (CKD) 55.7 (60.0-200.0); Anion Gap 9.6 mmol/L (4.00-12.00); Calcium 8.1 mg/dL (8.7-10.3); Carbon Dioxide 24.4 mmol/L (21.6-31.8)
[2020-05-02] MEDS: SENNOSIDES-DOCUSATE SODIUM 1 EACH TAB PO SCH ×2 (11:34→20:45)
--- NOTE | 2020-05-02 14:07 | P.PN ---
Subjective Progress Note Date: 05/02/20 This is a 80-year-old female with past medical history of dementia secondary to severe hydrocephalus, resides at home with her spouse who is the caregiver. Sitting up in bed, no acute distress, afebrile, normal WBC, no abdominal pain to palpation. Evaluated by speech therapy with recommendations noted and appreciated. Diet has been ordered/pending. Family has just dropped off patient's teeth. Does not appear to have shortness of breath, maintaining O2 sats in the 90s on room air. No cough, congestion. Objective - Vital Signs Vital signs: Vital Signs Temp 98.4 F 05/02/20 02: Pulse 74 05/02/20 07:05 Resp 16 05/02/20 07:05 BP 124/66 05/02/20 07:05 Pulse Ox 96 05/02/20 07:05 Intake & Output 05/01/20 05/02/20 05/02/20 18:59 06:59 18:59 Weight 49.895 kg 49.895 kg Other: Voiding Method Diaper Diaper Incontinent Incontinent # Voids 1 # Bowel Movements 1 - Exam PHYSICAL EXAM: VITAL SIGNS: [As above] GENERAL: Sitting up in bed, calm, attempting to converse, appears disoriented 3. HEENT: Conjunctivae normal. eyes normal. NECK: Supple, No JVD. CARDIOVASCULAR: S1, S2 regular, systolic murmur. RESPIRATION: Breath sounds diminished in the bases. No rhonchi or crackles. No bronchial breathing. ABDOMEN: Soft, mildly distended, nontender . No guarding. no masses palpable. No ascites, No hepatosplenomegaly.Bowel sounds heard. LEGS: No edema. no swelling NERVOUS SYSTEM: Alert, nonverbal, unable to fully assess as patient unable to follow simple verbal commands Skin: Warm and dry, multiple bruising, no rash - Labs CBC & Chem 7: 05/02/20 05:28 05/02/20 05:28 Labs: Abnormal Lab Results - Last 24 Hours (Table) 05/01/20 05/01/20 05/01/20 Range/Units 17:10 17:10 17:10 WBC 11.9 H (3.8-10.6) k/uL RBC (4.10-5.20) X 10*6/uL Hgb (12.0-15.0) g/dL Hct (37.2-46.3) % Neutrophils # 10.5 H (1.3-7.7) k/uL Lymphocytes # 0.5 L (1.0-4.8) k/uL APTT 20.3 L (22.0-30.0) sec Sodium (135-145) mmol/L Chloride (96-109) mmol/L BUN (7-17) mg/dL Creatinine (0.52-1.04) mg/dL Est GFR (CKD-EPI)AfAm (60.0-200.0) Est GFR (CKD-EPI)NonAf (60.0-200.0) Glucose (74-99) mg/dL Calcium (8.7-10.3) mg/dL Urine Protein 1+ H (Negative) Urine Blood Trace H (Negative) Urine Mucus Rare H (None) /hpf 05/01/20 05/02/20 05/02/20 Range/Units 17:10 05:28 05:28 WBC (3.8-10.6) k/uL RBC 3.71 L (4.10-5.20) X 10*6/uL Hgb 11.3 L (12.0-15.0) g/dL Hct 34.7 L (37.2-46.3) % Neutrophils # (1.3-7.7) k/uL Lymphocytes # (1.0-4.8) k/uL APTT (22.0-30.0) sec Sodium 147 H (135-145) mmol/L Chloride 113 H (96-109) mmol/L BUN 25 H (7-17) mg/dL Creatinine 1.11 H (0.52-1.04) mg/dL Est GFR (CKD-EPI)AfAm 55.7 L (60.0-200.0) Est GFR (CKD-EPI)NonAf 48.0 L (60.0-200.0) Glucose 122 H (74-99) mg/dL Calcium 8.1 L (8.7-10.3) mg/dL Urine Protein (Negative) Urine Blood (Negative) Urine Mucus (None) /hpf Assessment and Plan Assessment: Acute metabolic encephalopathy multifactorial, secondary to dehydration, mild acute renal failure, suspected colitis, in a patient admitted with fecal imp action. Recently treated with Keflex for acute UTI with no improvement in mental status. Doubt pneumonia clinically, patient is afebrile, normal WBC, lungs are clear with no shortness of breath, cough or congestion, maintaining O2 sats in the 90s on room air. Per ER report, patient's baseline is that she knows who she is, where she's at. History of severe dementia secondary to severe hydrocephalus Mild Acute renal failure, secondary to dehydration, baseline around 0.9 Fecal impaction in the rectum that measures 8 cm with distended small bowel in the mid abdomen per CT. Thoracolumbar dextrorotoscoliosis Numerous small hepatic cysts less than 1 cm, incidental find per CT Right renal cortical cyst ,5 cm ,upper pole right kidney Hypernatremia, IV fluids decreased Plan: Continue on current medication regime ,monitoring and symptomatic treatment. Close monitoring of oral intake with one-to-one feed .strict aspiration precautions. Stool softeners added to med regimen as CT reported rectal fecal impaction on admission. Gentle IV fluid hydration, continue on broad-spectrum IV antibiotics. Blood cultures pending. PT/OT consulted with social work consulted for potential subacute rehab at discharge. Discharge planning in 48 hours. The impression and plan of care has been dictated as directed. : I performed a history and examination of this patient, discussed the same with the dictator. I agree with the dictator's note ,documented as a scribe. Any additional findings or plans will be noted.
[2020-05-02] MEDS: MEMANTINE 5 MG TAB PO SCH (20:47)
[2020-05-03] MEDS: SENNOSIDES-DOCUSATE SODIUM 1 EACH TAB PO SCH (07:39)
[2020-05-03] MEDS: PANTOPRAZOLE 40 MG TABLET PO SCH (07:39)
[2020-05-03] MEDS: MEMANTINE 10 MG TAB PO SCH (07:39)
[2020-05-03] MEDS: HEPARIN SODIUM,PORCINE 5,000 UNIT/ML 1 ML VIAL SQ SCH (07:40)
[2020-05-03] MEDS: PIPERACILLIN-TAZOBACTAM 3.375 GM in SODIUM CHLORIDE 0.9% 100 ML IVPB SCH (07:40)
[2020-05-03 07:59] VITALS: BP 103/57; PULSE 65; RESP 16; TEMP 97.7
[2020-05-03 09:11] LABS: Basophils # (A) 0.04 X 10*3/uL (0.00-0.10); Basophils % (A) 0.6 %; Eosinophils # (A) 0.38 X 10*3/uL (0.04-0.35); Eosinophils % (A) 5.4 %; HCT 31.5 % (37.2-46.3); Lymphocytes # (A) 0.83 X 10*3/uL (0.90-5.00); Lymphocytes % (A) 11.8 %; MCH 29.4 pg (27.0-32.0); MCHC 31.7 g/dL (32.0-37.0); MCV 92.6 fL (80.0-97.0); Mean Platelet Volume 11.9 fL (9.5-12.2); Monocytes # (A) 0.56 X 10*3/uL (0.20-1.00); Monocytes % (A) 7.9 %; Neutrophils # (A) 5.22 X 10*3/uL (1.80-7.70); Platelet Count 244 X 10*3/uL (140-440); RDW 13.1 % (11.5-14.5); WBC 7.05 X 10*3/uL (4.50-10.00)
[2020-05-03 09:46] LABS: African American GFR (CKD) 62.5 (60.0-200.0); Anion Gap 7.8 mmol/L (4.00-12.00); Calcium 7.8 mg/dL (8.7-10.3); Carbon Dioxide 24.2 mmol/L (21.6-31.8); Non-African American GFR(CKD) 53.9 (60.0-200.0); Potassium 3.9 mmol/L (3.5-5.5)
--- NOTE | 2020-05-03 10:58 | P.DS ---
Providers Date of admission: 05/01/20 19:06 Expected date of discharge: 05/03/20 Attending physician: Carlos Forrest MD Primary care physician: Terri Conn Hospital Course: Final Diagnoses: Acute metabolic encephalopathy multifactorial, secondary to dehydration, mild acute renal failure, suspected colitis, in a patient admitted with fecal impaction. Recently treated with Keflex for acute UTI with no improvement in mental status. Doubt pneumonia clinically, patient is afebrile, normal WBC, lungs are clear with no shortness of breath, cough or congestion, maintaining O2 sats in the 90s on room air. Per ER report, patient's baseline is that she knows who she is, where she's at. History of severe dementia secondary to severe hydrocephalus Mild Acute renal failure, secondary to dehydration, baseline around 0.9, improving currently at 1.0 Fecal impaction in the rectum that measures 8 cm with distended small bowel in the mid abdomen per CT, Thoracolumbar dextrorotoscoliosis Numerous small hepatic cysts less than 1 cm, incidental find per CT Right renal cortical cyst ,5 cm ,upper pole right kidney Hypernatremia, IV fluids decreased, resolved Hospital course:This is a 80-year-old female with past medical history of dementia secondary to severe hydrocephalus, resides at home with her spouse who is the caregiver. Sitting up in bed, no acute distress, afebrile, normal WBC, no abdominal pain to palpation. Evaluated by speech therapy with recommendations noted and appreciated. Diet has been ordered/pending. Family has just dropped off patient's teeth. Does not appear to have shortness of breath, maintaining O2 sats in the 90s on room air. No cough, congestion. Significant clinical improvement. Evaluated by speech therapy and placed on dysphagia level III diet with one-to-one supervision .Consuming 50% of diet with no nausea vomiting or diarrhea. Positive bowel movement yesterday. Creatinine improved down to 1. Remains afebrile, maintaining O2 sats in the 90s on room air. Evaluated by PT, recommending home at discharge. Patient will be discharged home today in a stable condition with guarded prognosis. Discharge recommending 3 days of Augmentin, and to continue with stool softeners, i nitiated on this visit. The impression and plan of care has been dictated as directed. : I performed a history and examination of this patient, discussed the same with the dictator. I agree with the dictator's note ,documented as a scribe. Any additional findings or plans will be noted. Patient Condition at Discharge: Stable Plan - Discharge Summary Discharge Rx Participant: No New Discharge Prescriptions: New Amoxic-Pot Clav 875-125Mg [Augmentin 875-125] 1 tab PO Q12HR 3 Days #6 tab Sennosides-Docusate Sodium [Senokot-S] 2 each PO BID tab Acetaminophen Tab [Tylenol] 650 mg PO Q6HR PRN tab PRN Reason: Mild Pain Or Fever > 100.5 Pantoprazole [Protonix] 40 mg PO AC-BRKFST tablet. Continue Memantine [Namenda] 10 mg PO DAILY Memantine [Namenda] 5 mg PO HS Ergocalciferol [Vitamin D2 (1250 Mcg = 78413 Iu)] 1,250 mcg PO FR Discharge Medication List Memantine [Namenda] 5 mg PO HS 05/28/18 [History] Memantine [Namenda] 10 mg PO DAILY 05/28/18 [History] Ergocalciferol [Vitamin D2 (1250 Mcg = 92046 Iu)] 1,250 mcg PO FR 05/01/20 [History] Acetaminophen Tab [Tylenol] 650 mg PO Q6HR PRN tab 05/03/20 [Rx] Amoxic-Pot Clav 875-125Mg [Augmentin 875-125] 1 tab PO Q12HR 3 Days #6 tab 05/03/20 [Rx] Pantoprazole [Protonix] 40 mg PO AC-BRKFST tablet. 05/03/20 [Rx] Sennosides-Docusate Sodium [Senokot-S] 2 each PO BID tab 05/03/20 [Rx] Follow up Appointment(s)/Referral(s): Terri Conn DO [Primary Care Provider] - 1 Week (After DC from subacute rehab) Activity/Diet/Wound Care/Special Instructions: ECF: cbc,bmp in 3 days Strict Aspiration Precautions Requires supervision with all meals and snacks, 1:1 supervision Diet: Dysphagia level III chopped, meats ground. Discharge Disposition: TRANSFER TO SNF/ECF
[2020-05-06] MEDS ORDERED: ERGOCALCIFEROL 1,250 MCG (50,000 IU) CAPSULE PO SCH (09:00)
--- NOTE | 2020-05-06 09:25 | CDI ---
Documentation Clarification Form Date: 05/06/2020 09:11:00 AM From: Dahiana Lazaro Phone: If you have a question about this query, please contact Laurel Bryson, Fine Sander at [phone] between 8am and 5pm. Admit Date: 05/01/2020 07:06:00 PM Patient Name: Allyssa Jeter Visit Number: [id number] Discharge Date: 05/03/2020 03:47:00 PM ATTENTION: The Clinical Documentation Specialists (CDI) and [facility] Coding Staff appreciate your assistance in clarifying documentation. Please respond to the clarification below the line at the bottom and electronically sign. The CDI & [facility] Coding staff will review the response and follow-up if needed. Please note: Queries are made part of the Legal Health Record. If you have any questions, please contact the author of this message via ITS. Dr. Carlos Forrest Per H and P from Dr. Prieto covering for you, possible bilateral pneumonia with sepsis POA. This diagnosis not carried through to your DCS. Per DCS "doubt pneumonia". Please clarify if patient had sepsis or was it ruled out. History/Risk Factors: Recent UTI, metabolic encephalopathy. Clinical Indicators: WBC: 11.9 Vitals signs: 97.7 F, 113 bpm, 141/76, 93% RA Treatment: Broad spectrum antibiotics In your professional opinion, please clarify if patient had sepsis or was it ruled out. [ ] Sepsis POA [ ] Sepsis, Not POA [ ] Sepsis ruled out [ ] Severe Sepsis with organ failure [ ] Septic Shock [ ] SIRS, without underlying infectious process [ ] Other, please specify [ ] Unable to determine SIRS Criteria: 2 or more of the following may indicate SIRS Temperature < 96.8F (36C) or > 101.0F (38.3C) Heart Rate > 90 bpm Respiratory Rate > 20 breaths/min or PaCO2 < 32 mmHg White Blood Cell Count > 12,000 or < 4,000 cells/mm3 or > 10% bands Sepsis SO MARQUEZ
== END 2020-05-03 15:47 | disposition home health service (06) | DRG 871 ==
LOC: EC 16:28 → 4SSUR 19:06
PROVIDERS: ADMIT Family Medicine; ATTEND Family Medicine
DX: A41.9 Sepsis, unspecified organism (principal); G93.41 Metabolic encephalopathy; G91.9 Hydrocephalus, unspecified; J98.11 Atelectasis; K56.600 Partial intestinal obstruction, unspecified as to cause; N17.9 Acute kidney failure, unspecified; N39.0 Urinary tract infection, site not specified; E87.0 Hyperosmolality and hypernatremia; E86.0 Dehydration; F02.80 Dementia in other diseases classified elsewhere, unspecified severity, without behavioral disturbance, psychotic disturbance, mood disturbance, and anxiety; K56.41 Fecal impaction; K76.89 Other specified diseases of liver; K52.9 Noninfective gastroenteritis and colitis, unspecified; N28.1 Cyst of kidney, acquired; Z87.440 Personal history of urinary (tract) infections; Z82.49 Family history of ischemic heart disease and other diseases of the circulatory system; Z90.710 Acquired absence of both cervix and uterus; Z85.42 Personal history of malignant neoplasm of other parts of uterus; R13.10 Dysphagia, unspecified; Z20.822 Contact with and (suspected) exposure to COVID-19; M41.85 Other forms of scoliosis, thoracolumbar region
CPT/HCPCS: 36415; 70450; 71046; 72125; 74177; 80048; 80053; 80143; 80179; 80306; 80320; 81001; 82140; 82550; 84145; 84443; 84484; 85025; 85610; 85730; 87040; 87635; 93005; 96361; 96365; 96366; 96375; 99285

== ENCOUNTER 2021-01-25 18:50 | Emergency (ER) | payer MEDICARE ==
[2021-01-25 18:56] VITALS: TEMP 97.5
[2021-01-25] MEDS ORDERED: ONDANSETRON 4 MG/2 ML VIAL IM STA (20:48)
[2021-01-25] MEDS ORDERED: SODIUM CHLORIDE 0.9% 1,000 ML IV STA (20:48)
[2021-01-25 21:48] LABS: Basophils % (A) 1 %; Eosinophils % (A) 1 %; HCT 39.1 % (34.0-46.0); HGB 12.7 gm/dL (11.4-16.0); Lymphocytes # (A) 1.2 k/uL (1.0-4.8); Lymphocytes % (A) 18 %; MCH 30.4 pg (25.0-35.0); MCHC 32.5 g/dL (31.0-37.0); MCV 93.6 fL (80.0-100.0); Mean Platelet Volume 8.8; Monocytes # (A) 0.3 k/uL (0-1.0); Monocytes % (A) 5 %; Neutrophils # (A) 5.2 k/uL (1.3-7.7); Neutrophils % (A) 74 %; Platelet Count 251 k/uL (150-450); RBC 4.18 m/uL (3.80-5.40); RDW 13.1 % (11.5-15.5)
--- NOTE | 2021-01-25 21:55 | XR ---
EXAMINATION TYPE: XR chest 2V DATE OF EXAM: 01/25/2021 COMPARISON: 05/01/2020 HISTORY: Weakness FINDINGS: There is no heart failure nor confluent pneumonic infiltrate. Costophrenic angles are clear. Thoracic aorta is atheromatous. Bony thorax is intact. IMPRESSION: No active cardiopulmonary disease. There is clearing of the mild pulmonary interstitial i nfiltrates compared to old exam.
[2021-01-25 21:57] LABS: Albumin 3.9 g/dL (3.5-5.0); Magnesium 1.8 mg/dL (1.6-2.3); Potassium 4.2 mmol/L (3.5-5.1); Total Bilirubin 0.8 mg/dL (0.2-1.3); Total Protein 7.3 g/dL (6.3-8.2)
[2021-01-25 21:58] LABS: Partial Thromboplastin Time 24.2 sec (22.0-30.0); Prothrombin Time 10.9 sec (9.0-12.0)
--- NOTE | 2021-01-25 22:58 | ED ---
General Adult HPI - General Source: patient, RN notes reviewed, old records reviewed Mode of arrival: wheelchair Limitations: no limitations <Isra Conn - Last Filed: 01/27/21 21:37> <Aidan Choudhury - Last Filed: 01/29/21 04:54> - General Chief complaint: Weakness Stated complaint: Recheck/Poss UTI Time Seen by Provider: 01/25/21 20:18 - History of Present Illness Initial comments: patient is a 80-year-old female with past medical history remarkable for dementia, UTI, cancer who presents emergency Department after being brought by over concern for worsening weakness over the last 2-3 days. Patient recently completed treatment for UTI with ciprofloxacin. Patient's is concerned that infection may be worse. Patient also appears more weak but is acting her normal self overall. She is no other acute complaints however history is limited from the patient. Patient's states that patient has lost 10 pounds the last year or so and it is more difficult to get her to eat. His conservative dehydration as well. He presents emergency department for further evaluation. Denies any falls. Patient was not vaccinated for COVID-19. (Isra Conn) - Related Data Home Medications Medication Instructions Recorded Confirmed Memantine [Namenda] 5 mg PO HS 05/28/18 01/25/21 Memantine [Namenda] 10 mg PO DAILY 05/28/18 01/25/21 Ergocalciferol [Vitamin D2 (1250 1,250 mcg PO FR 05/01/20 01/25/21 Mcg = 12716 Iu)] Ciprofloxacin HCl [Cipro] 250 mg PO Q12HR 01/25/21 01/25/21 Allergies Allergy/AdvReac Type Severity Reaction Status Date / Time No Known Allergies Allergy Verified 01/25/21 21:47 Review of Systems ROS Other: All systems not noted in ROS Statement are negative. <Isra Conn - Last Filed: 01/27/21 21:37> ROS Other: All systems not noted in ROS Statement are negative. <Aidan Choudhury - Last Filed: 01/29/21 04:54> ROS Statement: Those systems with pertinent positive or pertinent negative responses have been documented in the HPI. Unable to obtain secondary to patient's clinical status. (Isra Conn) Past Medical History Past Medical History: Unable to Obtain, Cancer, Dementia Additional Past Medical History / Comment(s): pt spouse reports that he believes his has a history of uterine cancer with a possible hysterectomy. Pt is a poor historian. History of Any Multi-Drug Resistant Organisms: None Reported Past Surgical History: Unable to Obtain, Hysterectomy Additional Past Surgical History / Comment(s): pt a poor historian. Past Anesthesia/Blood Transfusion Reactions: No Reported Reaction, Unable to Obtain Past Psychological History: No Psychological Hx Reported Past Alcohol Use History: None Reported Past Drug Use History: None Reported - Past Family History Daughter(s) Family Medical History: Cancer Father Family Medical History: Congestive Heart Failure (CHF) <Isra Conn - Last Filed: 01/27/21 21:37> General Exam Limitations: no limitations <Isra Conn - Last Filed: 01/27/21 21:37> - General Exam Comments Initial Comments: General: Appears in no acute distress. HEAD: Normal with no signs of head trauma. EYES: PERRLA, EOMI, conjunctiva normal, no discharge. ENT: Hearing grossly intact, normal oropharynx. RESPIRATORY: Clear breath sounds bilaterally. No wheezes, rales, or rhonchi. C/V: Regular rate and rhythm. S1 and S2 auscultated, no edema, peripheral pulses 2+ and intact throughout ABD: Abdomen is soft, nondistended. Is nonspecific tender to palpation. No guarding. No rebound tenderness. No peritoneal signs. EXT: Normal range of motion, no obvious deformity SKIN: No rashes or lesions observed on exposed skin. NEURO: Alert and oriented times one. Unable to move all 4 extremities. (Isra Conn) Course Vital Signs 01/25/21 01/25/21 18:54 23:11 Temperature 97.5 F L Pulse Rate 87 81 Respiratory 20 15 Rate Blood Pressure 108/81 110/68 O2 Sat by Pulse 95 95 Oximetry Medical Decision Making - Lab Data Result diagrams: 01/25/21 21:28 01/25/21 21:28 - EKG Data -: EKG Interpreted by Ma <Isra Conn - Last Filed: 01/27/21 21:37> - Lab Data Result diagrams: 01/25/21 21:28 01/25/21 21:28 <Aidan Choudhury - Last Filed: 01/29/21 04:54> - Medical Decision Making Based on patient's presentation and physical exam, who is concerned for possible infectious etiology for her current weakness, however she does have some abd ominal tenderness on physical exam. Therefore we will obtain laboratory studies, CT abdomen and pelvis with contrast, CT brain, chest x-ray, EKG. Patient's was in agreement with this plan. EKG shows no signs of acute ischemia. Chest x-ray has no acute cardio pulmonary process. Laboratory studies are remarkable for a negative troponin. Remainder of the labs are unremarkable including negative Covid swab. Urinalysis is still pending at this time. Patient's IV infiltrated and CT imaging is still pending at this time. On reevaluation, patient remains cheerful self. She is not acute complaint at this time. I attempted the patient's . Patient presented to the emergency department physician Dr. Choudhury pending results of urinalysis and imaging. Patient signed out in stable condition. Patient was eventually discharged home in fair condition by Dr. Choudhury following CT imaging revealing no acute changes. (Isra Conn) 80 female presents today for evaluation of weakness. No significant findings of acute cause here in the ER. Also the does not want placement and will take patient home (Aidan Choudhury) - Lab Data Lab Results 01/25/21 01/25/21 01/25/21 Range/Units 21:28 21:28 21:28 WBC 7.0 (3.8-10.6) k/uL RBC 4.18 (3.80-5.40) m/uL Hgb 12.7 (11.4-16.0) gm/dL Hct 39.1 (34.0-46.0) % MCV 93.6 (80.0-100.0) fL MCH 30.4 (25.0-35.0) pg MCHC 32.5 (31.0-37.0) g/dL RDW 13.1 (11.5-15.5) % Plt Count 251 (150-450) k/uL MPV 8.8 Neutrophils % 74 % Lymphocytes % 18 % Monocytes % 5 % Eosinophils % 1 % Basophils % 1 % Neutrophils # 5.2 (1.3-7.7) k/uL Lymphocytes # 1.2 (1.0-4.8) k/uL Monocytes # 0.3 (0-1.0) k/uL Eosinophils # 0.0 (0-0.7) k/uL Basophils # 0.0 (0-0.2) k/uL PT 10.9 (9.0-12.0) sec INR 1.0 (<1.2) APTT 24.2 (22.0-30.0) sec Sodium 138 (137-145) mmol/L Potassium 4.2 (3.5-5.1) mmol/L Chloride 104 (98-107) mmol/L Carbon Dioxide 28 (22-30) mmol/L Anion Gap 6 mmol/L BUN 22 H (7-17) mg/dL Creatinine 0.99 (0.52-1.04) mg/dL Est GFR (CKD-EPI)AfAm 63 (>60 ml/min/1.73 sqM) Est GFR (CKD-EPI)NonAf 55 (>60 ml/min/1.73 sqM) Glucose 92 (74-99) mg/dL Calcium 10.0 (8.4-10.2) mg/dL Magnesium 1.8 (1.6-2.3) mg/dL Total Bilirubin 0.8 (0.2-1.3) mg/dL AST 34 (14-36) U/L ALT 25 (4-34) U/L Alkaline Phosphatase 67 (38-126) U/L Troponin I (0.000-0.034) ng/mL Total Protein 7.3 (6.3-8.2) g/dL Albumin 3.9 (3.5-5.0) g/dL Urine Color Urine Appearance (Clear) Urine pH (5.0-8.0) Ur Specific [place] (1.001-1.035) Urine Protein (Negative) Urine Glucose (UA) (Negative) Urine Ketones (Negative) Urine Blood (Negative) Urine Nitrite (Negative) Urine Bilirubin (Negative) Urine Urobilinogen (<2.0) mg/dL Ur Leukocyte Esterase (Negative) Urine RBC (0-5) /hpf Urine WBC (0-5) /hpf Ur Squamous Epith Cells (0-4) /hpf Urine Bacteria (None) /hpf Hyaline Casts (0-2) /lpf Urine Mucus (None) /hpf Coronavirus (PCR) (Not Detectd) 01/25/21 01/25/21 01/25/21 Range/Units 21:28 21:50 23:00 WBC (3.8-10.6) k/uL RBC (3.80-5.40) m/uL Hgb (11.4-16.0) gm/dL Hct (34.0-46.0) % MCV (80.0-100.0) fL MCH (25.0-35.0) pg MCHC (31.0-37.0) g/dL RDW (11.5-15.5) % Plt Count (150-450) k/uL MPV Neutrophils % % Lymphocytes % % Monocytes % % Eosinophils % % Basophils % % Neutrophils # (1.3-7.7) k/uL Lymphocytes # (1.0-4.8) k/uL Monocytes # (0-1.0) k/uL Eosinophils # (0-0.7) k/uL Basophils # (0-0.2) k/uL PT (9.0-12.0) sec INR (<1.2) APTT (22.0-30.0) sec Sodium (137-145) mmol/L Potassium (3.5-5.1) mmol/L Chloride (98-107) mmol/L Carbon Dioxide (22-30) mmol/L Anion Gap mmol/L BUN (7-17) mg/dL Creatinine (0.52-1.04) mg/dL Est GFR (CKD-EPI)AfAm (>60 ml/min/1.73 sqM) Est GFR (CKD-EPI)NonAf (>60 ml/min/1.73 sqM) Glucose (74-99) mg/dL Calcium (8.4-10.2) mg/dL Magnesium (1.6-2.3) mg/dL Total Bilirubin (0.2-1.3) mg/dL AST (14-36) U/L ALT (4-34) U/L Alkaline Phosphatase (38-126) U/L Troponin I <0.012 (0.000-0.034) ng/mL Total Protein (6.3-8.2) g/dL Albumin (3.5-5.0) g/dL Urine Color Yellow Urine Appearance Clear (Clear) Urine pH 5.5 (5.0-8.0) Ur Specific [place] 1.019 (1.001-1.035) Urine Protein Trace H (Negative) Urine Glucose (UA) Negative (Negative) Urine Ketones Negative (Negative) Urine Blood Negative (Negative) Urine Nitrite Negative (Negative) Urine Bilirubin Negative (Negative) Urine Urobilinogen <2.0 (<2.0) mg/dL Ur Leukocyte Esterase Large H (Negative) Urine RBC 12 H (0-5) /hpf Urine WBC 46 H (0-5) /hpf Ur Squamous Epith Cells 1 (0-4) /hpf Urine Bacteria Rare H (None) /hpf Hyaline Casts 8 H (0-2) /lpf Urine Mucus Few H (None) /hpf Coronavirus (PCR) Not Detected (Not Detectd) - EKG Data EKG Comments: 12-lead Electrocardiogram Interpretation Note EKG was reviewed and interpreted by myself. 12-lead ECG performed at 2100 is interpreted by me as revealing normal sinus rhythm at a rate of 72 beats per minute. [place] is normal. ID interval is 124 ms, QRS duration is 76 seconds, QTC is 413 ms.. There were no ST or T wave abnormalities to suggest myocardial ischemia or injury. R wave progression across the precordium was satisfactory. B y my interpretation this EKG is non-diagnostic for acute ischemia. (Isra Conn) Disposition <Isra Conn - Last Filed: 01/27/21 21:37> Is patient prescribed a controlled substance at d/c from ED?: No <Aidan Choudhury - Last Filed: 01/29/21 04:54> Clinical Impression: Weakness, Dementia, Dehydration Disposition: HOME SELF-CARE Condition: Fair Instructions (If sedation given, give patient instructions): Weakness (ED) Referrals: Terri Conn DO [Primary Care Provider] - 1-2 days
[2021-01-25 23:14] VITALS: BP 110/68; PULSE 81; RESP 15
[2021-01-25 23:23] LABS: Appearance,Urine Clear (Clear); Bacteria,Urine Rare /hpf; Bilirubin,Urine Negative (Negative); Blood,Urine Negative (Negative); Color,Urine Yellow; Glucose,Urine (UA) Negative (Negative); Hyaline Casts,Urine 8 /lpf (0-2); Ketones,Urine Negative (Negative); Leukocyte Esterase,Urine Large (Negative); Mucus,Urine Few /hpf; Nitrite,Urine Negative (Negative); PH, Urine 5.5 (5.0-8.0); Protein,Urine Trace (Negative); RBC,Urine 12 /hpf (0-5); Specific Gravity,Urine 1.019 (1.001-1.035); Squamous Epithelial Cell,Urine 1 /hpf (0-4); Urobilinogen,Urine <2.0 mg/dL (<2.0); WBC,Urine 46 /hpf (0-5)
--- NOTE | 2021-01-25 23:38 | CT ---
EXAMINATION TYPE: CT brain wo con DATE OF EXAM: 01/25/2021 COMPARISON: 05/01/2020 HISTORY: weakness CT DLP: 1408.4 mGycm Automated exposure control for dose reduction was used. There is marked enlargement of the lateral and third ventricles. There is cerebral cortical thinning. There is no mass effect nor midline shift. There is no sign of intracranial hemorrhage. Calvarium is intact. Skull base appears intact. IMPRESSION: Severe hydrocephalus without change compared to old exam. No acute intracranial abnormality.
--- NOTE | 2021-01-25 23:59 | CT ---
EXAMINATION TYPE: CT abdomen pelvis w con DATE OF EXAM: 01/25/2021 COMPARISON: 05/01/2020 HISTORY: pain CT DLP: 581.7 mGycm Automated exposure control for dose reduction was used. CONTRAST: Performed with IV Contrast, patient injected with 80 mL of Isovue 300. Images obtained from the diaphragm to the floor the pelvis with IV contrast. There is some mild subsegmental atelectasis right lung base. There are numerous small cysts throughou t the liver that measure up to 7 mm. Heart size is normal. There is atherosclerotic calcification in the abdominal aorta. Spleen is intact. Stomach is intact. There is no pancreatic mass. Gallbladder is intact. The bile ducts are not dilated. There is no adrenal mass. Kidneys show satisfactory contrast opacification. There is no hydronephrosi s. There is 4.2 cm cortical cyst posterior right kidney. There is no retroperitoneal adenopathy. Abdo gerald aorta is atheromatous. Ureters are not dilated. Urinary bladder is almost empty. There is dilat ed rectum with fecal material. Rectum measures 8 cm. There is no mesenteric edema. There is no ascites or free air. There is no sign of a mechanical bowel obstruction. There is thoracolumbar dextroscoliosis deformity. There is multilevel mild degenerative disc space na rrowing in the lumbar spine. There is no compression fracture. Bony pelvis is intact. The hip joints are intact. IMPRESSION: Mild subsegmental atelectasis right lung base is improved compared to old exam. Numerous small hepatic cysts without change. No acute abnormality within the abdomen pelvis. Atherosclerotic vascular disease. There is rectal fecal impaction similar to old exam.
== END 2021-01-26 02:04 | disposition home or self-care (01) ==
LOC: EC 18:50
DX: R53.1 Weakness (principal); F03.90 Unspecified dementia, unspecified severity, without behavioral disturbance, psychotic disturbance, mood disturbance, and anxiety; E86.0 Dehydration; Z20.822 Contact with and (suspected) exposure to COVID-19
CPT/HCPCS: 36415; 93005; 80053; 83735; 84484; 85025; 85610; 85730; 81001; 87040; 87086; 87635; 71046; 70450; 74177; 99285; 96360; 96361; 96372; J2405; Q9967

== ENCOUNTER 2022-03-19 14:40 | Inpatient (IN) | payer MEDICARE ==
--- NOTE | 2022-03-19 16:54 | CT ---
EXAMINATION TYPE: CT brain wo con DATE OF EXAM: 03/19/2022 COMPARISON: 01/25/2021 HISTORY: ALS, possible fall CT DLP: 1169.4 mGycm Automated exposure control for dose reduction was used. Images of the brain obtained with no contrast. There is severe hydrocephalus with diffuse brain cortical thinning. There is no mass effect or midlin e shift. No sign of intracranial hemorrhage. The calvarium is intact. No fracture seen. Skull base is intact. IMPRESSION: Severe hydrocephalus without change compared to old exam. No acute intracranial abnormality. No obstr ucting mass seen.
[2022-03-19 17:56] LABS: Basophils % (A) 1 %; Eosinophils % (A) 0 %; HCT 41.7 % (34.0-46.0); HGB 13.4 gm/dL (11.4-16.0); Lymphocytes # (A) 0.6 k/uL (1.0-4.8); Lymphocytes % (A) 14 %; MCH 30.2 pg (25.0-35.0); MCHC 32.1 g/dL (31.0-37.0); MCV 94.2 fL (80.0-100.0); Mean Platelet Volume 9.4; Monocytes # (A) 0.2 k/uL (0-1.0); Monocytes % (A) 4 %; Neutrophils # (A) 3.4 k/uL (1.3-7.7); Neutrophils % (A) 80 %; Platelet Count 150 k/uL (150-450); RBC 4.43 m/uL (3.80-5.40); RDW 13.9 % (11.5-15.5); WBC 4.2 k/uL (3.8-10.6)
[2022-03-19 18:04] LABS: Albumin 4.1 g/dL (3.5-5.0); Calcium 9.2 mg/dL (8.4-10.2); Potassium 4.5 mmol/L (3.5-5.1); Total Bilirubin 0.9 mg/dL (0.2-1.3); Total Protein 7.5 g/dL (6.3-8.2)
[2022-03-19 20:40] LABS: Appearance,Urine Clear (Clear); Bacteria,Urine Rare /hpf; Bilirubin,Urine Negative (Negative); Blood,Urine Negative (Negative); Color,Urine Yellow; Glucose,Urine (UA) Negative (Negative); Hyaline Casts,Urine 1 /lpf (0-2); Ketones,Urine Negative (Negative); Leukocyte Esterase,Urine Small (Negative); Mucus,Urine Rare /hpf; Nitrite,Urine Negative (Negative); Protein,Urine 1+ (Negative); RBC,Urine 3 /hpf (0-5); Specific Gravity,Urine 1.023 (1.001-1.035); Squamous Epithelial Cell,Urine 1 /hpf (0-4); Urobilinogen,Urine <2.0 mg/dL (<2.0); WBC,Urine 6 /hpf (0-5)
[2022-03-19] MEDS ORDERED: SODIUM CHLORIDE 0.9% 1,000 ML IV ONE (20:50)
--- NOTE | 2022-03-19 21:08 | XR ---
EXAMINATION TYPE: XR chest 2V DATE OF EXAM: 03/19/2022 COMPARISON: 01/25/2021 HISTORY: Weakness TECHNIQUE: 2 view FINDINGS: There is no heart failure nor confluent pneumonic infiltrate there is a possible 1 cm nodul e left upper lobe. No pleural effusion. Costophrenic angles are clear. There are no hilar masses. There is osteopenia. IMPRESSION: Left pulmonary nodule probably not changed compared to old exam. Normal heart. No heart f ailure.
[2022-03-19 21:52] LABS: Magnesium 1.9 mg/dL (1.6-2.3)
[2022-03-19 21:53] LABS: Lactic Acid, Venous 1.3 mmol/L (0.7-2.0)
[2022-03-19] MEDS ORDERED: HEPARIN SODIUM 1,000 UN/ML (10ML VL) IV PRN (22:53)
[2022-03-19] MEDS ORDERED: HEPARIN SODIUM 1,000 UN/ML (10ML VL) IV ONE (22:53)
[2022-03-19] MEDS ORDERED: HEPARIN SOD,PORK IN 0.45% NACL 25,000 UNIT in 0.45% NACL 1 250ML.BAG IV SCH (23:00)
[2022-03-19] MEDS ORDERED: NALOXONE 0.4 MG/ML 1 ML VIAL IV PRN (23:05)
--- NOTE | 2022-03-19 23:05 | ED ---
General Adult HPI - General Chief complaint: Altered Mental Status Stated complaint: Fall/Dementia Time Seen by Provider: 03/19/22 18:58 Source: patient Mode of arrival: ambulatory Limitations: no limitations - History of Present Illness Initial comments: This is an 82-year-old female with a past medical history including previously known hydrocephalus presents emergency department via EMS for altered mental status and lethargy. The patient's was at the bedside and was able to provide all history. The patient was responsive to painful stimuli but was nonverbal at this time. It was reported by the patient's that the patient had been increasingly altered and lethargic over the last several weeks to months but stated that over the last 2 days she has become completely altered. He stated that the patient has rolled off the bed and hit the side of her head a week and a half ago but has not had any other trauma. The patient's takes care of the patient at home and stated that this has happened the last year where she has a mental decline but gets better when the weather improves. The patient herself was resting in bed without any acute distress however was cachectic and lethargic. The patient's denied any recent sick contacts and denied any fevers or chills noted in the patient. - Related Data Home Medications Medication Instructions Recorded Confirmed Memantine [Namenda] 5 mg PO HS 05/28/18 03/19/22 Memantine [Namenda] 10 mg PO DAILY 05/28/18 03/19/22 Ergocalciferol [Vitamin D2 (1250 1,250 mcg PO FR 05/01/20 03/19/22 Mcg = 77478 Iu)] Acetaminophen [Tylenol] 325 mg PO Q4H PRN 03/19/22 03/19/22 Sennosides-Docusate Sodium 1 tab PO HS 03/19/22 03/19/22 [Senokot-S] Allergies Allergy/AdvReac Type Severity Reaction Status Date / Time No Known Allergies Allergy Verified 03/19/22 19:50 Review of Systems ROS Statement: Those systems with pertinent positive or pertinent negative responses have been documented in the HPI. ROS Other: All systems not noted in ROS Statement are negative. Past Medical History Past Medical History: Unable to Obtain, Cancer, Dementia Additional Past Medical History / Comment(s): pt spouse reports that he believes his has a history of uterine cancer with a possible hysterectomy. Pt is a poor historian. History of Any Multi-Drug Resistant Organisms: None Reported Past Surgical History: Unable to Obtain, Hysterectomy Additional Past Surgical History / Comment(s): pt a poor historian. Past Anesthesia/Blood Transfusion Reactions: No Reported Reaction, Unable to Obtain Past Psychological History: No Psychological Hx Reported Smoking Status: Never smoker Past Alcohol Use History: None Reported Past Drug Use History: None Reported - Past Family History Daughter(s) Family Medical History: Cancer Father Family Medical History: Congestive Heart Failure (CHF) General Exam Limitations: altered mental status (ANO 0, only alert and responsive to verbal stimuli) General appearance: in no apparent distress, lethargic, cachectic Head exam: Present: normocephalic, normal inspection, other (Healing wound on the right side of the forehead from previous fall) Eye exam: Present: normal appearance, PERRL Pupils: Present: normal accommodation ENT exam: Present: normal exam, normal oropharynx, mucous membranes moist Neck exam: Present: normal inspection, full ROM Respiratory exam: Present: normal lung sounds bilaterally Cardiovascular Exam: Present: regular rate, normal rhythm, normal heart sounds GI/Abdominal exam: Present: soft, normal bowel sounds Extremities exam: Present: normal inspection, full ROM Back exam: Present: normal inspection, full ROM Neurological exam: Present: altered, other (ANO 0, responsive to verbal similar) Skin exam: Present: warm, dry Course Vital Signs 03/19/22 16:13 Temperature 98 F Pulse Rate 90 Respiratory 18 Rate Blood Pressure 109/76 O2 Sat by Pulse 11 L Oximetry EKG Findings - EKG Comments: EKG Findings:: An EKG was obtained and was reviewed by myself showing a rate of 82, NE interval 126, QRS duration of 85 and QTC of 368. This EKG showed a normal sinus rhythm with no ST segment elevation or depression noted. There was artifact secondary to the patient's shaking. Medical Decision Making - Medical Decision Making Was pt. sent in by a medical professional or institution (, PA, WORK TICKET DISTRIBUTOR, urgent care, hospital, or alf...) When possible be specific @ -No Did you speak to anyone other than the patient for history (EMS, parent, family, police, friend...)? What history was obtained from this source @ -Yes, patient's Did you review nursing and triage notes (agree or disagree)? Why? @ -I reviewed and agree with nursing and triage notes Were old charts reviewed (outside hosp., previous admission, EMS record, old EKG, old radiological studies, urgent care reports/EKG's, alf records)? Report findings @ -No old charts were reviewed Differential Diagnosis (chest pain, altered mental status, abdominal pain women, abdominal pain men, vaginal bleeding, weakness, fever, dyspnea, syncope, headache, dizziness, GI bleed, back pain, seizure, CVA, palpatations, mental health)? @ -UTI, acute CVA, intracranial hemorrhage EKG interpreted by me (3pts min.). @ -As above X-rays interpreted by me (1pt min.). @ -A chest x-ray was obtained and was reviewed by myself showing a left pulmonary nodule probably not change compared to the old exam. There is normal heart. There is no heart failure noted. CT interpreted by me (1pt min.). @ -CT of the head was also obtained in triage and was reviewed by myself showing severe hydrocephalus without change compared to the old exam. There was no acute intracranial abnormality. There was no obstructing mass seen. U/S interpreted by me (1pt. min.). @ -None done What testing was considered but not performed or refused? (CT, X-rays, U/S, labs)? Why? @ -None What meds were considered but not given or refused? Why? @ -None Did you discuss the management of the patient with other professionals (professionals i.e. , PA, WORK TICKET DISTRIBUTOR, lab, RT, psych nurse, social media job titles, floor director, teacher, commanding officer homicide squad, casey saw operator)? Give summary @ -Yes, admitting physician, primary care physician, Was smoking cessation discussed for >3mins.? @ -No Was critical care preformed (if so, how long)? @ -No Were there social determinants of health that impacted care today? How? (Homelessness, low income, unemployed, alcoholism, drug addiction, transportation, low edu. Level, literacy, decrease access to med. care, penitentiary, rehab)? @ -Low medical literacy Was there de-escalation of care discussed even if they declined (Discuss DNR or withdrawal of care, Hospice)? DNR status @ -No What co-morbidities impacted this encounter? (DM, HTN, Smoking, COPD, CAD, Cancer, CVA, ARF, Chemo, Hep., AIDS, mental health diagnosis, sleep apnea, morbid obesity)? @ -None Was patient admitted / discharged? Hospital course, mention meds given and route, prescriptions, significant lab abnormalities, going to OR and other pertinent info. @ -The patient was seen and evaluated in the emergency department. Physical exam, the patient was resting in bed without any acute distress but was cachectic, lethargic and responsive to painful stimuli. Vital signs were stable. Laboratory workup was largely within normal limits however the patient had a significantly elevated troponin and was likely an NSTEMI. The patient was started on a heparin drip. Due to the patient's failure to thrive and continued altered mental status, the patient will need to be admitted for further workup and evaluation. Cardiology will be placed in consult as well as neurology for the patient's baseline significant and severe hydrocephalus as a possible cause for her altered mental status. The patient's was told of this plan and was agreeable. The patient was accepted for admission and was admitted in stable condition. Undiagnosed new problem with uncertain prognosis? @ -No Drug Therapy requiring intensive monitoring for toxicity (Heparin, Nitro, Insulin, Cardizem)? @ -No Were any procedures done? @ -No Diagnosis/symptom? @ -AMS with failure to thrive, severe chronic hydrocephalus Acute, or Chronic, or Acute on Chronic? @ -Acute on chronic Uncomplicated (without systemic symptoms) or Complicated (systemic symptoms)? @ -Complicated Side effects of treatment? @ -No Exacerbation, Progression, or Severe Exacerbation? @ -No Poses a threat to life or bodily function? How? (Chest pain, [place], [place], pneumonia, PE, COPD, DKA, ARF, appy, cholecystitis, CVA, Diverticulitis, Homicidal, Suicidal, threat to staff... and all critical care pts) @ -Yes, AMS causing lethargy and inability to take care of herself Diagnosis/symptom? @ -NSTEMI Acute, or Chronic, or Acute on Chronic? @ -Acute Uncomplicated (without systemic symptoms) or Complicated (systemic symptoms)? @ -Complicated Side effects of treatment? @ -none Exacerbation, Progression, or Severe Exacerbation] @ -no Poses a threat to life or bodily function? @ -Yes, could worsen and cause cardiac arrhythmia and dysfunction. - Lab Data Result diagrams: 03/19/22 17:10 03/19/22 17:10 Lab Results 03/19/22 03/19/22 03/19/22 Range/Units 17:10 17:10 17:10 WBC 4.2 (3.8-10.6) k/uL RBC 4.43 (3.80-5.40) m/uL Hgb 13.4 (11.4-16.0) gm/dL Hct 41.7 (34.0-46.0) % MCV 94.2 (80.0-100.0) fL MCH 30.2 (25.0-35.0) pg MCHC 32.1 (31.0-37.0) g/dL RDW 13.9 (11.5-15.5) % Plt Count 150 (150-450) k/uL MPV 9.4 Neutrophils % 80 % Lymphocytes % 14 % Monocytes % 4 % Eosinophils % 0 % Basophils % 1 % Neutrophils # 3.4 (1.3-7.7) k/uL Lymphocytes # 0.6 L (1.0-4.8) k/uL Monocytes # 0.2 (0-1.0) k/uL Eosinophils # 0.0 (0-0.7) k/uL Basophils # 0.0 (0-0.2) k/uL Sodium 142 (137-145) mmol/L Potassium 4.5 (3.5-5.1) mmol/L Chloride 107 (98-107) mmol/L Carbon Dioxide 28 (22-30) mmol/L Anion Gap 7 mmol/L BUN 40 H (7-17) mg/dL Creatinine 1.39 H (0.52-1.04) mg/dL Est GFR (CKD-EPI)AfAm 41 (>60 ml/min/1.73 sqM) Est GFR (CKD-EPI)NonAf 36 (>60 ml/min/1.73 sqM) Glucose 112 H (74-99) mg/dL Plasma Lactic Acid Angus (0.7-2.0) mmol/L Calcium 9.2 (8.4-10.2) mg/dL Magnesium (1.6-2.3) mg/dL Total Bilirubin 0.9 (0.2-1.3) mg/dL AST 59 H (14-36) U/L ALT 40 H (4-34) U/L Alkaline Phosphatase 82 (38-126) U/L Ammonia (<30) umol/L Troponin I (0.000-0.034) ng/mL NT-Pro-B Natriuret Pep pg/mL Total Protein 7.5 (6.3-8.2) g/dL Albumin 4.1 (3.5-5.0) g/dL Lipase (23-300) U/L Urine Color Yellow Urine Appearance Clear (Clear) Urine pH 6.0 (5.0-8.0) Ur Specific Moselle 1.023 (1.001-1.035) Urine Protein 1+ H (Negative) Urine Glucose (UA) Negative (Negative) Urine Ketones Negative (Negative) Urine Blood Negative (Negative) Urine Nitrite Negative (Negative) Urine Bilirubin Negative (Negative) Urine Urobilinogen <2.0 (<2.0) mg/dL Ur Leukocyte Esterase Small H (Negative) Urine RBC 3 (0-5) /hpf Urine WBC 6 H (0-5) /hpf Ur Squamous Epith Cells 1 (0-4) /hpf Urine Bacteria Rare H (None) /hpf Hyaline Casts 1 (0-2) /lpf Urine Mucus Rare H (None) /hpf 03/19/22 03/19/22 03/19/22 Range/Units 21:26 21:26 21:26 WBC (3.8-10.6) k/uL RBC (3.80-5.40) m/uL Hgb (11.4-16.0) gm/dL Hct (34.0-46.0) % MCV (80.0-100.0) fL MCH (25.0-35.0) pg MCHC (31.0-37.0) g/dL RDW (11.5-15.5) % Plt Count (150-450) k/uL MPV Neutrophils % % Lymphocytes % % Monocytes % % Eosinophils % % Basophils % % Neutrophils # (1.3-7.7) k/uL Lymphocytes # (1.0-4.8) k/uL Monocytes # (0-1.0) k/uL Eosinophils # (0-0.7) k/uL Basophils # (0-0.2) k/uL Sodium (137-145) mmol/L Potassium (3.5-5.1) mmol/L Chloride (98-107) mmol/L Carbon Dioxide (22-30) mmol/L Anion Gap mmol/L BUN (7-17) mg/dL Creatinine (0.52-1.04) mg/dL Est GFR (CKD-EPI)AfAm (>60 ml/min/1.73 sqM) Est GFR (CKD-EPI)NonAf (>60 ml/min/1.73 sqM) Glucose (74-99) mg/dL Plasma Lactic Acid Angus (0.7-2.0) mmol/L Calcium (8.4-10.2) mg/dL Magnesium 1.9 (1.6-2.3) mg/dL Total Bilirubin (0.2-1.3) mg/dL AST (14-36) U/L ALT (4-34) U/L Alkaline Phosphatase (38-126) U/L Ammonia (<30) umol/L Troponin I 0.424 H* (0.000-0.034) ng/mL NT-Pro-B Natriuret Pep 1360 pg/mL Total Protein (6.3-8.2) g/dL Albumin (3.5-5.0) g/dL Lipase 117 (23-300) U/L Urine Color Urine Appearance (Clear) Urine pH (5.0-8.0) Ur Specific Moselle (1.001-1.035) Urine Protein (Negative) Urine Glucose (UA) (Negative) Urine Ketones (Negative) Urine Blood (Negative) Urine Nitrite (Negative) Urine Bilirubin (Negative) Urine Urobilinogen (<2.0) mg/dL Ur Leukocyte Esterase (Negative) Urine RBC (0-5) /hpf Urine WBC (0-5) /hpf Ur Squamous Epith Cells (0-4) /hpf Urine Bacteria (None) /hpf Hyaline Casts (0-2) /lpf Urine Mucus (None) /hpf 03/19/22 Range/Units 21:26 WBC (3.8-10.6) k/uL RBC (3.80-5.40) m/uL Hgb (11.4-16.0) gm/dL Hct (34.0-46.0) % MCV (80.0-100.0) fL MCH (25.0-35.0) pg MCHC (31.0-37.0) g/dL RDW (11.5-15.5) % Plt Count (150-450) k/uL MPV Neutrophils % % Lymphocytes % % Monocytes % % Eosinophils % % Basophils % % Neutrophils # (1.3-7.7) k/uL Lymphocytes # (1.0-4.8) k/uL Monocytes # (0-1.0) k/uL Eosinophils # (0-0.7) k/uL Basophils # (0-0.2) k/uL Sodium (137-145) mmol/L Potassium (3.5-5.1) mmol/L Chloride (98-107) mmol/L Carbon Dioxide (22-30) mmol/L Anion Gap mmol/L BUN (7-17) mg/dL Creatinine (0.52-1.04) mg/dL Est GFR (CKD-EPI)AfAm (>60 ml/min/1.73 sqM) Est GFR (CKD-EPI)NonAf (>60 ml/min/1.73 sqM) Glucose (74-99) mg/dL Plasma Lactic Acid Angus 1.3 (0.7-2.0) mmol/L Calcium (8.4-10.2) mg/dL Magnesium (1.6-2.3) mg/dL Total Bilirubin (0.2-1.3) mg/dL AST (14-36) U/L ALT (4-34) U/L Alkaline Phosphatase (38-126) U/L Ammonia <9 (<30) umol/L Troponin I (0.000-0.034) ng/mL NT-Pro-B Natriuret Pep pg/mL Total Protein (6.3-8.2) g/dL Albumin (3.5-5.0) g/dL Lipase (23-300) U/L Urine Color Urine Appearance (Clear) Urine pH (5.0-8.0) Ur Specific Moselle (1.001-1.035) Urine Protein (Negative) Urine Glucose (UA) (Negative) Urine Ketones (Negative) Urine Blood (Negative) Urine Nitrite (Negative) Urine Bilirubin (Negative) Urine Urobilinogen (<2.0) mg/dL Ur Leukocyte Esterase (Negative) Urine RBC (0-5) /hpf Urine WBC (0-5) /hpf Ur Squamous Epith Cells (0-4) /hpf Urine Bacteria (None) /hpf Hyaline Casts (0-2) /lpf Urine Mucus (None) /hpf Disposition Clinical Impression: NSTEMI (non-ST elevated myocardial infarction), AMS (altered mental status), Failure to thrive, Hydrocephalus Disposition: ADMITTED IP TO THIS [facility] Condition: Stable Is patient prescribed a controlled substance at d/c from ED?: No Referrals: Terri Conn DO [Primary Care Provider] - 1-2 days Time of Disposition: 22:40 Decision to Admit Reason: Admit from EC Decision Date: 03/19/22 Decision Time: 22:40
[2022-03-19 23:52] LABS: INR 1.1 (<1.2); Partial Thromboplastin Time 23.4 sec (22.0-30.0); Prothrombin Time 11.2 sec (9.0-12.0)
[2022-03-20] MEDS: SODIUM CHLORIDE 0.9% 1,000 ML IV SCH ×6 (04:46→20:17)
[2022-03-20 05:43] LABS: Basophils % (A) 1 %; Eosinophils % (A) 0 %; HCT 35.3 % (34.0-46.0); HGB 11.2 gm/dL (11.4-16.0); Lymphocytes # (A) 0.4 k/uL (1.0-4.8); Lymphocytes % (A) 15 %; MCH 29.7 pg (25.0-35.0); MCHC 31.6 g/dL (31.0-37.0); Mean Platelet Volume 9.3; Monocytes # (A) 0.1 k/uL (0-1.0); Monocytes % (A) 5 %; Neutrophils # (A) 2.2 k/uL (1.3-7.7); Neutrophils % (A) 77 %; Platelet Count 113 k/uL (150-450); RBC 3.76 m/uL (3.80-5.40); RDW 13.4 % (11.5-15.5); WBC 2.9 k/uL (3.8-10.6)
[2022-03-20 11:33] LABS: Calcium 8.2 mg/dL (8.4-10.2); Potassium 3.7 mmol/L (3.5-5.1)
[2022-03-20 12:00] VITALS: BMI 16.0
--- NOTE | 2022-03-20 12:22 | P.CNNES ---
History of Present Illness Consult date: 03/20/22 Requesting physician: Isai Sutton Reason for Consult: Severe hydrocephalus with AMS History of Present Illness: This is an 82-year-old woman with history of severe hydrocephalus, dementia who presented emergency department via EMS for altered mental status and lethargy. Neurology is consulted for severe hydrocephalus and altered mental status. History is obtained from patient medical record. According to the ED note it seemed to the patient stated that the patient is has been increased lately altered and lethargic over the last several weeks to months and has been completely altered for the last 2 days. It seems the patient has rolled off of bed and hit side of the head a week and a half ago but no trauma. No fevers according to patient's . Patient is on the amantadine. Patient has a known history of chronic severe hydrocephalus. Some of the workup during his hospital visit consisted of: Initial CBC with differential seems unremarkable. Creatinine is 1.39 BUN is 40, initial glucose is 112, AST is 59 and the ALT of 40. Ammonia is less than 9. Urinalysis seems questionable urinary tract infection but I feel it seems unlikely CT of the head is reported as severe hydrocephalus without change compared to old exam. No acute intracranial abnormality. No obstructive masses seen. I reviewed the reports from prior CT of the brain and she had this severe hydrocephalus at least since 2015 in our facility Troponin is 0.424 Review of Systems Review of system is limited but the [place] positive and negative as per HPI. Past Medical History Past Medical History: Unable to Obtain, Cancer, Dementia Additional Past Medical History / Comment(s): pt spouse reports that he believes his has a history of uterine cancer with a possible hysterectomy. Pt is a poor historian. History of Any Multi-Drug Resistant Organisms: None Reported Past Surgical History: Unable to Obtain, Hysterectomy Additional Past Surgical History / Comment(s): pt a poor historian. Past Anesthesia/Blood Transfusion Reactions: No Reported Reaction, Unable to Obtain Past Psychological History: No Psychological Hx Reported Smoking Status: Never smoker Past Alcohol Use History: None Reported Past Drug Use History: None Reported - Past Family History Daughter(s) Family Medical History: Cancer Father Family Medical History: Congestive Heart Failure (CHF) Medications and Allergies Home Medications Medication Instructions Recorded Confirmed Type Memantine [Namenda] 5 mg PO HS 05/28/18 03/19/22 History Memantine [Namenda] 10 mg PO DAILY 05/28/18 03/19/22 History Ergocalciferol [Vitamin D2 (1250 1,250 mcg PO FR 05/01/20 03/19/22 History Mcg = 35989 Iu)] Acetaminophen [Tylenol] 325 mg PO Q4H PRN 03/19/22 03/19/22 History Sennosides-Docusate Sodium 1 tab PO HS 03/19/22 03/19/22 History [Senokot-S] Allergies Allergy/AdvReac Type Severity Reaction Status Date / Time No Known Allergies Allergy Verified 03/19/22 19:50 Physical Examination - Vital Signs Vital Signs: Vital Signs Temp Pulse Pulse Resp BP BP BP 03/20/22 11:30 97.6 F 62 20 106/61 03/20/22 09:31 97.8 F 75 20 109/90 03/20/22 07:00 67 16 118/59 03/20/22 06:00 63 16 118/54 03/20/22 05:00 68 16 118/53 03/20/22 04:00 63 16 121/54 03/20/22 03:00 65 15 136/94 03/20/22 02:00 73 17 114/59 03/20/22 01:00 73 12 113/82 03/20/22 00:00 10 L 114/101 03/19/22 23:00 69 6 L 135/63 03/19/22 22:00 80 12 135/63 03/19/22 21:00 135/63 03/19/22 20:00 88 14 135/63 03/19/22 19:00 83 37 H 135/63 03/19/22 18:43 91 11 L 03/19/22 16:13 98 F 90 18 109/76 Pulse Ox 03/20/22 11:30 96 03/20/22 09:31 96 03/20/22 07:00 97 03/20/22 06:00 97 03/20/22 05:00 97 03/20/22 04:00 03/20/22 03:00 03/20/22 02:00 03/20/22 01:00 03/20/22 00:00 03/19/22 23:00 03/19/22 22:00 03/19/22 21:00 03/19/22 20:00 03/19/22 19:00 96 03/19/22 18:43 80 L 03/19/22 16:13 11 L Intake and Output 03/19/22 03/20/22 03/20/22 22:59 06:59 14:59 Intake Total 64.311 Balance 64.311 Intake: Intake, IV Titration 64.311 Amount Heparin Sod,Pork in 0.45% 64.311 NaCl 25,000 unit In 0.45 % NaCl 1 250ml.bag @ 18 UNITS/KG/HR 6.94 mls/hr IV .Q24H [facility] Rx#: [id number] Other: Voiding Method External Catheter Weight 38.555 kg 38.555 kg GENERAL: The patient is lying in bed and does not appear in acute distress. NEUROLOGICAL: Limited because of her condition/cooperation. Higher mental function: The patient is awake but only knoded correctly to her name. Otherwise nonverbal or following commands. , Cranial nerves: The pupils are round, equal and reactive to light. Patient is tracking throughout the room. No facial weakness. Is mute. Motor: The strength is hard to assess individual muscles but is able to lift bilateral uppers above gravity. Is crossing both legs. Appears Normal tone and bulk. Cerebellum: Unable to assess. Sensation: Unable to assess light touch. Reflexes (right/left): Unable to assess because of cooperation. Plantars: Is unable to assess because of cooperation. Results - Laboratory Findings CBC and BMP: 03/20/22 05:14 03/20/22 05:14 Abnormal Lab Findings: Abnormal Labs 03/19/22 03/19/22 03/19/22 17:10 17:10 17:10 WBC RBC Hgb Plt Count Lymphocytes # 0.6 L APTT Chloride BUN 40 H Creatinine 1.39 H Glucose 112 H Calcium AST 59 H ALT 40 H Troponin I Urine Protein 1+ H Ur Leukocyte Esterase Small H Urine WBC 6 H Urine Bacteria Rare H Urine Mucus Rare H 03/19/22 03/20/22 03/20/22 21:26 05:14 05:14 WBC 2.9 L RBC 3.76 L Hgb 11.2 L Plt Count 113 L Lymphocytes # 0.4 L APTT 115.5 H* Chloride BUN Creatinine Glucose Calcium AST ALT Troponin I 0.424 H* Urine Protein Ur Leukocyte Esterase Urine WBC Urine Bacteria Urine Mucus 03/20/22 05:14 WBC RBC Hgb Plt Count Lymphocytes # APTT Chloride 113 H BUN 39 H Creatinine 1.16 H Glucose Calcium 8.2 L AST ALT Troponin I Urine Protein Ur Leukocyte Esterase Urine WBC Urine Bacteria Urine Mucus Assessment and Plan Assessment: Altered mental status and reported for weeks to months. Possibly due to worsening of underlying dementia Chronic Severe hydrocephalus and had imaging CT in our facility as back as 2014 with this Elevated troponin Dementia Plan: I ordered vitamin B12, folate, TSH. I ordered a routine EEG to rule out any underlying active seizures or epileptiform discharges for her confusion. Regarding her chronic hydrocephalus that dates back at least since 2014 no acute intervention is needed and recommend outpatient follow-up with a neurologist/neurosurgeon of the patient's family desires Cardiology is consulted for elevated troponin We'll defer the rest of the medical management to the primary team I attempted to contact the patient's as well as the brothers to find more information about the patient's baseline and the exact story but no response The plan is discussed with the patient nurse. Thank you for consultation Time with Patient: Greater than 30
[2022-03-20] MEDS: PANTOPRAZOLE 40 MG/10 ML VIAL IVP SCH (12:29)
--- NOTE | 2022-03-20 14:01 | P.CRDCN ---
History of Present Illness Consult date: 03/20/22 Reason for Consult (text): Non-ST elevated myocardial infarction History of present illness: History of present illness: This is an 82-year-old female patient with past medical history of dementia, hydrocephalus. Patient does not follow in the cardiology office. Patient has severe dementia and unable to obtain any history from her. We have been asked to evaluate the patient for non-ST elevated myocardial infarction. Patient presented to the emergency center due to altered mental status and lethargy. Apparently patient is normally responsive to painful stimuli but was nonverbal. Mental status changes have been ongoing over the past couple weeks to months and significantly worse in the past 2 days. She had a roll off the bed a week ago and hit her head. Heart rate is in the 60s, blood pressure 106/61. EKG sinus rhythm WBC 2.9, hemoglobin 11.2, platelet count 113. Potassium 3.7, BUN 39 creatinine 1.16, initially creatinine 1.39. AST 59, ALT 40. Troponin 0.4-4. ProBNP 1360 Chest x-ray reveals left pulmonary nodule probably not change compared to old exam. Normal heart. No heart failure. Unable to obtain due to patient's mental status Review Of Systems: Physical examination: Corey frail cachectic appearing 82-year-old female. She is resting on the ER stretcher and appears to be in no acute distress VS: reviewed HEENT: Head is atraumatic, normocephalic. Pupils equal, round. Sclerae is anicteric. Oral mucous membranes very dry. NECK: Supple. No JVD. LUNGS: Clear to auscultation. No wheezes or rhonchi. No intercostal retractions. HEART: Regular rate and rhythm. No murmur. ABDOMEN: Soft. EXTREMITIES: No pedal edema. No calf tenderness. NEUROLOGICAL: Patient is awake. Assessment Possible non-ST elevated myocardial infarction Metabolic encephalopathy Dementia Hydrocephalus Failure to thrive Plan: Recommend discontinuing heparin drip Maintain patient on aspirin 81 mg daily Hold beta molly No aggressive cardiac treatment is planned. No echocardiogram Further recommendations to follow based upon clinical course Thank you kindly for this consultation. Nurse practitioner note has been reviewed, I agree with documented findings and plan of care. Patient was seen and examined. Past Medical History Past Medical History: Unable to Obtain, Cancer, Dementia Additional Past Medical History / Comment(s): pt spouse reports that he believes his has a history of uterine cancer with a possible hysterectomy. Pt is a poor historian. History of Any Multi-Drug Resistant Organisms: None Reported Past Surgical History: Unable to Obtain, Hysterectomy Additional Past Surgical History / Comment(s): pt a poor historian. Past Anesthesia/Blood Transfusion Reactions: No Reported Reaction, Unable to Obtain Smoking Status: Former smoker - Past Family History Daughter(s) Family Medical History: Cancer Father Family Medical History: Congestive Heart Failure (CHF) Medications and Allergies Home Medications Medication Instructions Recorded Confirmed Type Memantine [Namenda] 5 mg PO HS 05/28/18 03/19/22 History Memantine [Namenda] 10 mg PO DAILY 05/28/18 03/19/22 History Ergocalciferol [Vitamin D2 (1250 1,250 mcg PO FR 05/01/20 03/19/22 History Mcg = 04772 Iu)] Acetaminophen [Tylenol] 325 mg PO Q4H PRN 03/19/22 03/19/22 History Sennosides-Docusate Sodium 1 tab PO HS 03/19/22 03/19/22 History [Senokot-S] Allergies Allergy/AdvReac Type Severity Reaction Status Date / Time No Known Allergies Allergy Verified 03/19/22 19:50 Physical Exam Vitals: Vital Signs Temp Pulse Pulse Resp BP BP BP 03/20/22 11:30 97.6 F 62 20 106/61 03/20/22 09:31 97.8 F 75 20 109/90 03/20/22 07:00 67 16 118/59 03/20/22 06:00 63 16 118/54 03/20/22 05:00 68 16 118/53 03/20/22 04:00 63 16 121/54 03/20/22 03:00 65 15 136/94 03/20/22 02:00 73 17 114/59 03/20/22 01:00 73 12 113/82 03/20/22 00:00 10 L 114/101 03/19/22 23:00 69 6 L 135/63 03/19/22 22:00 80 12 135/63 03/19/22 21:00 135/63 03/19/22 20:00 88 14 135/63 03/19/22 19:00 83 37 H 135/63 03/19/22 18:43 91 11 L 03/19/22 16:13 98 F 90 18 109/76 Pulse Ox 03/20/22 11:30 96 03/20/22 09:31 96 03/20/22 07:00 97 03/20/22 06:00 97 03/20/22 05:00 97 03/20/22 04:00 03/20/22 03:00 03/20/22 02:00 03/20/22 01:00 03/20/22 00:00 03/19/22 23:00 03/19/22 22:00 03/19/22 21:00 03/19/22 20:00 03/19/22 19:00 96 03/19/22 18:43 80 L 03/19/22 16:13 11 L Intake and Output 03/19/22 03/20/22 03/20/22 22:59 06:59 14:59 Intake Total 64.311 Balance 64.311 Intake: Intake, IV Titration 64.311 Amount Heparin Sod,Pork in 0.45% 64.311 NaCl 25,000 unit In 0.45 % NaCl 1 250ml.bag @ 18 UNITS/KG/HR 6.94 mls/hr IV .Q24H [facility] Rx#: [id number] Other: Voiding Method External Catheter Weight 38.555 kg 38.555 kg Results 03/20/22 05:14 03/20/22 05:14 Cardiac Enzymes 03/19/22 03/19/22 Range/Units 17:10 21:26 AST 59 H (14-36) U/L Troponin I 0.424 H* (0.000-0.034) ng/mL Coagulation 03/19/22 03/20/22 Range/Units 23:16 05:14 PT 11.2 (9.0-12.0) sec APTT 23.4 115.5 H* (22.0-30.0) sec CBC 03/19/22 03/20/22 Range/Units 17:10 05:14 WBC 4.2 2.9 L (3.8-10.6) k/uL RBC 4.43 3.76 L (3.80-5.40) m/uL Hgb 13.4 11.2 L (11.4-16.0) gm/dL Hct 41.7 35.3 (34.0-46.0) % Plt Count 150 113 L (150-450) k/uL Comprehensive Metabolic Panel 03/19/22 03/20/22 Range/Units 17:10 05:14 Sodium 142 141 (137-145) mmol/L Potassium 4.5 3.7 (3.5-5.1) mmol/L Chloride 107 113 H (98-107) mmol/L Carbon Dioxide 28 23 (22-30) mmol/L BUN 40 H 39 H (7-17) mg/dL Creatinine 1.39 H 1.16 H (0.52-1.04) mg/dL Glucose 112 H 89 (74-99) mg/dL Calcium 9.2 8.2 L (8.4-10.2) mg/dL AST 59 H (14-36) U/L ALT 40 H (4-34) U/L Alkaline Phosphatase 82 (38-126) U/L Total Protein 7.5 (6.3-8.2) g/dL Albumin 4.1 (3.5-5.0) g/dL Current Medications Generic Name Dose Route Start Last Admin Trade Name Freq PRN Reason Stop Dose Admin Aspirin 81 mg 03/21/22 09:00 Aspirin 81 Mg PO DAILY [facility] Sodium Chloride 1,000 mls @ 130 mls/hr 03/20/22 04:45 03/20/22 11:27 Saline 0.9% IV 130 mls/hr .Q7H42M [facility] Administration Sodium Chloride 1,000 mls @ 130 mls/hr 03/20/22 04:45 03/20/22 12:32 Saline 0.9% IV Not Given .Q7H42M [facility] Naloxone HCl 0.2 mg 03/19/22 23:05 Naloxone 0.4 Mg/Ml 1 Ml Vial IV Q2M PRN Opioid Reversal Pantoprazole Sodium 40 mg 03/20/22 11:00 03/20/22 12:29 Pantoprazole 40 Mg/10 Ml Vial IVP 40 mg DAILY [facility] Administration Senna/Docusate Sodium 1 each 03/20/22 21:00 Sennosides-Docusate Sodium 1 Each Tab PO HS [facility] Intake and Output 03/19/22 03/20/22 03/20/22 22:59 06:59 14:59 Intake Total 64.311 Balance 64.311 Intake: Intake, IV Titration 64.311 Amount Heparin Sod,Pork in 0.45% 64.311 NaCl 25,000 unit In 0.45 % NaCl 1 250ml.bag @ 18 UNITS/KG/HR 6.94 mls/hr IV .Q24H [facility] Rx#: [id number] Other: Voiding Method External Catheter Weight 38.555 kg 38.555 kg Patient Weight 03/21/22 06:59 Weight 38.555 kg 03/20/22 05:14 03/20/22 05:14
--- NOTE | 2022-03-20 19:55 | EEG ---
ELECTROENCEPHALOGRAM REPORT CLINICAL HISTORY: This is an 82-year-old woman with a history of severe hydrocephalus, dementia, who presented because of worsening of confusion. The video EEG is obtained to evaluate for seizure epileptiform activity. RELEVANT MEDICATION: The patient is not on any antiepileptic drugs. EEG TYPE: A routine 21-channel EEG is performed with video using the 10/20 electrode placement system. DESCRIPTION: Background consists of [id number] voltage of 6 to 7 hertz activity that is well modulated, well sustained. Occasionally, the background consists of diffuse nonrhythmic delta activity. There was no physiological stage 2 sleep architecture seen. There is no focal slowing. Interictal and ictal is none. ACTIVATION PROCEDURE: Photic stimulation and hyperventilation are not performed because of the patient's cooperation. CLINICAL INTERPRETATION: This is an abnormal routine EEG. The background slowing is suggestive of mild-to- moderate encephalopathy. Otherwise, there is no focal slowing, epileptiform discharge, or seizure on the EEG. Clinical correlation is recommended. DERRICK / JAMAR: [id number] / MTDJin
[2022-03-20] MEDS: SENNOSIDES-DOCUSATE SODIUM 1 EACH TAB PO SCH (20:16)
--- NOTE | 2022-03-20 22:40 | P.HPIM ---
History of Present Illness H&P Date: 03/20/22 Allyssa Jeter is a 82 yo F with PMH of chronic severe hydrocephalus, dementia who was brought to the ED by family for reduced PO intake and worsening mental status. History obtained via chart review. Patient has been increased lately altered and lethargic over the last several weeks to months and has been completely altered for the last 2 days. She apparently rolled out of bed and hit her head approx 1 week ago. On presentation vitals stable, WBC unremarkable, Cr 1.39, BUN 40. Troponin is 0.424 CT of the head is reported as severe hydrocephalus without change compared to old exam. No acute intracranial abnormality. No obstructive masses seen. Review of Systems ROS unobtainable: due to mental status Past Medical History Past Medical History: Unable to Obtain, Cancer, Dementia Additional Past Medical History / Comment(s): pt spouse reports that he believes his has a history of uterine cancer with a possible hysterectomy. Pt is a poor historian. History of Any Multi-Drug Resistant Organisms: None Reported Past Surgical History: Unable to Obtain, Hysterectomy Additional Past Surgical History / Comment(s): pt a poor historian. Past Anesthesia/Blood Transfusion Reactions: No Reported Reaction, Unable to Obtain Past Psychological History: No Psychological Hx Reported Smoking Status: Never smoker Past Alcohol Use History: None Reported Past Drug Use History: None Reported - Past Family History Daughter(s) Family Medical History: Cancer Father Family Medical History: Congestive Heart Failure (CHF) Medications and Allergies Home Medications Medication Instructions Recorded Confirmed Type Memantine [Namenda] 5 mg PO HS 05/28/18 03/19/22 History Memantine [Namenda] 10 mg PO DAILY 05/28/18 03/19/22 History Ergocalciferol [Vitamin D2 (1250 1,250 mcg PO FR 05/01/20 03/19/22 History Mcg = 15182 Iu)] Acetaminophen [Tylenol] 325 mg PO Q4H PRN 03/19/22 03/19/22 History Sennosides-Docusate Sodium 1 tab PO HS 03/19/22 03/19/22 History [Senokot-S] Allergies Allergy/AdvReac Type Severity Reaction Status Date / Time No Known Allergies Allergy Verified 03/19/22 19:50 Physical Exam Vitals: Vital Signs Temp Pulse Pulse Resp BP BP BP 03/20/22 19:32 97.9 F 66 18 109/55 03/20/22 16:54 20 03/20/22 16:53 97.3 F L 64 20 117/49 03/20/22 11:30 97.6 F 62 20 106/61 03/20/22 09:31 97.8 F 75 20 109/90 03/20/22 07:00 67 16 118/59 03/20/22 06:00 63 16 118/54 03/20/22 05:00 68 16 118/53 03/20/22 04:00 63 16 121/54 03/20/22 03:00 65 15 136/94 03/20/22 02:00 73 17 114/59 03/20/22 01:00 73 12 113/82 03/20/22 00:00 10 L 114/101 03/19/22 23:00 69 6 L 135/63 Pulse Ox 03/20/22 19:32 98 03/20/22 16:54 03/20/22 16:53 98 03/20/22 11:30 96 03/20/22 09:31 96 03/20/22 07:00 97 03/20/22 06:00 97 03/20/22 05:00 97 03/20/22 04:00 03/20/22 03:00 03/20/22 02:00 03/20/22 01:00 03/20/22 00:00 03/19/22 23:00 Intake and Output 03/20/22 03/20/22 03/20/22 06:59 14:59 22:59 Intake Total 1104.311 10 Balance 1104.311 10 Intake: Intake, IV Titration 1104.311 Amount Heparin Sod,Pork in 0.45% 64.311 NaCl 25,000 unit In 0.45 % NaCl 1 250ml.bag @ 18 UNITS/KG/HR 6.94 mls/hr IV .Q24H [facility] Rx#: [id number] Sodium Chloride 0.9% 1, 1040 000 ml @ 130 mls/hr IV . Q7H42M [facility] Rx#:[id number] Oral 10 Other: Voiding Method External Catheter External Catheter # Voids 1 Weight 38.555 kg Gen: elderly female in NAD HEENT: NC/AT, mmn Neck: Supple, no JVD or thyromegaly CV: RRR, no murmur Lungs: CTAB Abd: soft, nontender, bowel sounds normal Skin: warm and dry Neuro: awake. rouses to voice. otherwise nonverbal Results CBC & Chem 7: 03/20/22 05:14 03/20/22 05:14 Labs: Abnormal Lab Results - Last 24 Hours (Table) 03/19/22 03/20/22 03/20/22 Range/Units 21:26 05:14 05:14 WBC 2.9 L (3.8-10.6) k/uL RBC 3.76 L (3.80-5.40) m/uL Hgb 11.2 L (11.4-16.0) gm/dL Plt Count 113 L (150-450) k/uL Lymphocytes # 0.4 L (1.0-4.8) k/uL APTT 115.5 H* (22.0-30.0) sec Chloride (98-107) mmol/L BUN (7-17) mg/dL Creatinine (0.52-1.04) mg/dL Calcium (8.4-10.2) mg/dL Troponin I 0.424 H* (0.000-0.034) ng/mL 03/20/22 Range/Units 05:14 WBC (3.8-10.6) k/uL RBC (3.80-5.40) m/uL Hgb (11.4-16.0) gm/dL Plt Count (150-450) k/uL Lymphocytes # (1.0-4.8) k/uL APTT (22.0-30.0) sec Chloride 113 H (98-107) mmol/L BUN 39 H (7-17) mg/dL Creatinine 1.16 H (0.52-1.04) mg/dL Calcium 8.2 L (8.4-10.2) mg/dL Troponin I (0.000-0.034) ng/mL Thrombosis Risk Factor Assmnt - Choose All That Apply Any of the Below Risk Factors Present?: Yes Each Factor Represents 1 point: Acute DC Other Risk Factors: No Each Risk Factor Represents 3 Points: Age 75 years or older Other congenital or acquired thrombophilia - If yes, enter type in comment: No Thrombosis Risk Factor Assessment Total Risk Factor Score: 4 Thrombosis Risk Factor Assessment Level: Moderate Risk Assessment and Plan Plan: Chronic severe hydrocephalus. Dementia. Concern for worsening mental status. Consult neurology for further evaluation Elevated troponin. Cardiology consult. Start aspirin Acute kidney injury with ATN. Given IV fluids in the ED. Continue with NS at 130 cc/hr. Follow renal function
[2022-03-21] MEDS: SODIUM CHLORIDE 0.9% 1,000 ML IV SCH ×3 (05:07→10:10)
[2022-03-21] MEDS: ASPIRIN 81 MG PO SCH (09:25)
[2022-03-21] MEDS: PANTOPRAZOLE 40 MG/10 ML VIAL IVP SCH (09:25)
--- NOTE | 2022-03-21 09:57 | P.PN ---
Subjective Progress Note Date: 03/21/22 History of present illness: This is an 82-year-old female patient with past medical history of dementia, h ydrocephalus. Patient does not follow in the cardiology office. Patient has severe dementia and unable to obtain any history from her. We have been asked to evaluate the patient for non-ST elevated myocardial infarction. Patient presented to the emergency center due to altered mental status and lethargy. Apparently patient is normally responsive to painful stimuli but was nonverbal. Mental status changes have been ongoing over the past couple weeks to months and significantly worse in the past 2 days. She had a roll off the bed a week ago and hit her head. Heart rate is in the 60s, blood pressure 106/61. EKG sinus rhythm WBC 2.9, hemoglobin 11.2, platelet count 113. Potassium 3.7, BUN 39 creatinine 1.16, initially creatinine 1.39. AST 59, ALT 40. Troponin 0.4-4. ProBNP 1360 Chest x-ray reveals left pulmonary nodule probably not change compared to old exam. Normal heart. No heart failure. Unable to obtain due to patient's mental status 03/21 Patient is seen today on the [facility] stepdown unit. No new concerns. Patient is nonverbal. We had discontinued heparin drip yesterday and place the patient on a baby aspirin only. No plan for any aggressive cardiology workup. No echocardiogram is necessary. Physical examination: Gen: A frail cachectic appearing 82-year-old female. She is resting in bed and appears to be in no acute distress VS: reviewed HEENT: Head is atraumatic, normocephalic. Pupils equal, round. Sclerae is anicteric. Oral mucous membranes very dry. LUNGS: Clear to auscultation. No wheezes or rhonchi. No intercostal retractions. HEART: Regular rate and rhythm. No murmur. EXTREMITIES: No pedal edema. NEUROLOGICAL: Patient is awake. Assessment Possible non-ST elevated myocardial infarction Metabolic encephalopathy Dementia Hydrocephalus Failure to thrive Plan: Maintain patient on aspirin 81 mg daily Hold beta molly No aggressive cardiac treatment is planned. No echocardiogram Cardiology we'll sign off and follow on an as-needed basis. Please reconsult if any new concerns. Nurse practitioner note has been reviewed, I agree with documented findings and plan of care. Patient was seen and examined. Objective - Vital Signs Vital signs: Vital Signs Temp 98.1 F 03/21/22 03:08 Pulse 61 03/21/22 03:08 Resp 16 03/21/22 03:08 BP 99/47 03/21/22 03:08 Pulse Ox 92 L 03/21/22 03:08 FiO2 Intake & Output 03/20/22 03/21/22 03/21/22 18:59 06:59 18:59 Intake Total 8352.743 7909 Output Total 450 Balance 9146.514 0588 Weight 38.555 kg Intake: Intake, IV Titration 1273.059 2329 Amount Heparin Sod,Pork in 0.45% 64.311 NaCl 25,000 unit In 0.45 % NaCl 1 250ml.bag @ 18 UNITS/KG/HR 6.94 mls/hr IV .Q24H [facility] Rx#: [id number] Sodium Chloride 0.9% 1, 1040 000 ml @ 130 mls/hr IV . Q7H42M [facility] Rx#:[id number] Sodium Chloride 0.9% 1, 1560 000 ml @ 130 mls/hr IV . Q7H42M [facility] Rx#:[id number] Oral 10 100 Output: Urine 450 Other: Voiding Method External Catheter External Catheter # Voids 1 - Labs CBC & Chem 7: 03/20/22 05:14 03/20/22 05:14 Labs: Abnormal Lab Results - Last 24 Hours (Table) 03/20/22 Range/Units 05:14 Chloride 113 H (98-107) mmol/L BUN 39 H (7-17) mg/dL Creatinine 1.16 H (0.52-1.04) mg/dL Calcium 8.2 L (8.4-10.2) mg/dL
--- NOTE | 2022-03-21 10:22 | P.CONS ---
History of Present Illness - Reason for Consult Consult date: 03/21/22 wound care - History of Present Illness This is an 82-year-old patient who is a poor historian been seen on 3 for a pressure ulcer to the right hip. Patient has unstageable pressure ulcer to the right hip measuring approximately 3 x 4 x 0.1 cm. The ulceration has an eschar cath in place with minimal granulation noted to the wound edge. The wound edges attached to the wound base. There is no tunneling or undermining noted at this time. Review Of Systems: Constitutional: No fever, no chills, no night sweats. No weight change. No weakness, fatigue or lethargy. No daytime sleepiness. Integumentary:reports wounds, no lesions. No rash or pruritus. No unusual bruising. No change in hair or nails. Physical exam: General Appearance: Alert, cooperative, no distress, appears stated age. Skin: See HPI all other Skin color, texture, tugor normal, no rashes or lesions. Neurologic: Alert oriented x3 Assessment: 1. Unstageable right hip ulceration Plan: 1. Apply honey alginate, saline moistened gauze and 4 x 4 border foam. Change Saturday once every Saturday. Patient would benefit from continued advance wound care. Thank you for the consultation any questions please contact the wound care center DNP note has been reviewed and discussed with Dr. Albarado and the impression and plan of care has been directed as dictated. Past Medical History Past Medical History: Unable to Obtain, Cancer, Dementia Additional Past Medical History / Comment(s): pt spouse reports that he believes his has a history of uterine cancer with a possible hysterectomy. Pt is a poor historian. History of Any Multi-Drug Resistant Organisms: None Reported Past Surgical History: Unable to Obtain, Hysterectomy Additional Past Surgical History / Comment(s): pt a poor historian. Past Anesthesia/Blood Transfusion Reactions: No Reported Reaction, Unable to Obtain Past Psychological History: No Psychological Hx Reported Smoking Status: Never smoker Past Alcohol Use History: None Reported Past Drug Use History: None Reported - Past Family History Daughter(s) Family Medical History: Cancer Father Family Medical History: Congestive Heart Failure (CHF) Medications and Allergies Home Medications Medication Instructions Recorded Confirmed Type Memantine [Namenda] 5 mg PO HS 05/28/18 03/19/22 History Memantine [Namenda] 10 mg PO DAILY 05/28/18 03/19/22 History Ergocalciferol [Vitamin D2 (1250 1,250 mcg PO FR 05/01/20 03/19/22 History Mcg = 04372 Iu)] Acetaminophen [Tylenol] 325 mg PO Q4H PRN 03/19/22 03/19/22 History Sennosides-Docusate Sodium 1 tab PO HS 03/19/22 03/19/22 History [Senokot-S] Allergies Allergy/AdvReac Type Severity Reaction Status Date / Time No Known Allergies Allergy Verified 03/19/22 19:50 Physical Exam Vitals: Vital Signs Temp Pulse Resp BP Pulse Ox 03/21/22 07:54 97.3 F L 66 16 94/49 98 03/21/22 03:08 98.1 F 61 16 99/47 92 L 03/20/22 23:06 97.8 F 65 16 97/58 94 L 03/20/22 19:32 97.9 F 66 18 109/55 98 03/20/22 16:54 20 03/20/22 16:53 97.3 F L 64 20 117/49 98 03/20/22 11:30 97.6 F 62 20 106/61 96 Intake and Output 03/20/22 03/21/22 03/21/22 22:59 06:59 14:59 Intake Total 10 1660 Output Total 450 Balance 10 1210 Intake: Intake, IV Titration 1560 Amount Sodium Chloride 0.9% 1, 1560 000 ml @ 130 mls/hr IV . Q7H42M [facility] Rx#:[id number] Oral 10 100 Output: Urine 450 Other: Voiding Method External Catheter External Catheter External Catheter Results CBC & Chem 7: 03/20/22 05:14 03/20/22 05:14 Labs: Abnormal Lab Results - Last 24 Hours (Table) 03/20/22 Range/Units 05:14 Chloride 113 H (98-107) mmol/L BUN 39 H (7-17) mg/dL Creatinine 1.16 H (0.52-1.04) mg/dL Calcium 8.2 L (8.4-10.2) mg/dL Assessment and Plan (1) Unstageable pressure ulcer of right hip Current Visit: Yes Status: Acute Code(s): L89.210 - PRESSURE ULCER OF RIGHT HIP, UNSTAGEABLE SNOMED Code(s): 83984410
--- NOTE | 2022-03-21 13:06 | P.PN ---
Subjective Progress Note Date: 03/21/22 I am following-up seeing the patient and according to nursing staff she would say minimal words if at all. She would say ok and nod at times. Objective - Vital Signs Vital signs: Vital Signs Temp 98.3 F 03/21/22 11:19 Pulse 58 L 03/21/22 11:19 Resp 17 03/21/22 11:19 BP 94/45 03/21/22 11:19 Pulse Ox 97 03/21/22 11:19 FiO2 Intake & Output 03/20/22 03/21/22 03/21/22 18:59 06:59 18:59 Intake Total 3570.209 6049 Output Total 450 Balance 8637.195 7424 Weight 38.555 kg Intake: Intake, IV Titration 6594.804 3201 Amount Heparin Sod,Pork in 0.45% 64.311 NaCl 25,000 unit In 0.45 % NaCl 1 250ml.bag @ 18 UNITS/KG/HR 6.94 mls/hr IV .Q24H [facility] Rx#: [id number] Sodium Chloride 0.9% 1, 1040 000 ml @ 130 mls/hr IV . Q7H42M [facility] Rx#:[id number] Sodium Chloride 0.9% 1, 1560 000 ml @ 130 mls/hr IV . Q7H42M [facility] Rx#:[id number] Oral 10 100 Output: Urine 450 Other: Voiding Method External Catheter External Catheter External Catheter # Voids 1 - Exam GENERAL: The patient is lying in bed and does not appear in acute distress. NEUROLOGICAL: Limited because of her condition/cooperation. Higher mental function: The patient is awake and not verbalizing or following commands. , Cranial nerves: The pupils are round, equal and reactive to light. Patient is tracking throughout the room. No facial weakness. Is mute. Motor: The strength is hard to assess individual muscles but is able to lift bilateral uppers above gravity. Appears Normal tone and bulk. Cerebellum: Unable to assess. Sensation: Unable to assess light touch. Reflexes (right/left): Unable to assess because of cooperation. Plantars: Is unable to assess because of cooperation. Some of the workup during his hospital visit consisted of: Initial CBC with differential seems unremarkable. Creatinine is 1.39 BUN is 40, initial glucose is 112, AST is 59 and the ALT of 40. Ammonia is less than 9. Urinalysis seems questionable urinary tract infection but I feel it seems unlikely CT of the head is reported as severe hydrocephalus without change compared to old exam. No acute intracranial abnormality. No obstructive masses seen. I reviewed the reports from prior CT of the brain and she had this severe hydrocephalus at least since 2014 in our facility Troponin is 0.424 TSH is 1.340 Routine EEG is abnormal. The background slowing suggestive of mild to moderate encephalopathy. Otherwise there is no focal slowing, epileptiform discharges or seizure on the EEG - Labs CBC & Chem 7: 03/20/22 05:14 03/20/22 05:14 Assessment and Plan Assessment: Altered mental status and reported for weeks to months. Possibly due to worsening of underlying dementia Chronic Severe hydrocephalus and had imaging CT in our facility as back as 2014 with this Elevated troponin Dementia Plan: Pending vitamin B12 and folate. Regarding her chronic hydrocephalus that dates back at least since 2014 no acute intervention is needed and recommend outpatient follow-up with a neurologist/neurosurgeon of the patient's family desires Cardiology is consulted for elevated troponin We'll defer the rest of the medical management to the primary team The plan is discussed with the patient nursing staff. According to nurseeddie team is considering pursuing hospice. Otherwise no additional work-up besides above. Time with Patient: Less than 30
--- NOTE | 2022-03-21 14:47 | P.PN ---
Progress Note - Text Progress Note Date: 03/21/22 The patient is nonverbal and barely responsive. Attempted to call patient's . Left voice mail. Falls from nursing staff and patient's was present at the bedside. Attempted to go speak with him, but he was gone by the time I arrived. Spoke with patient's nurse who agreed to call me if he returned. aMria Del [address] [facility] Palliative Care/Urology [facility] [address] Email: [email or web address]
--- NOTE | 2022-03-21 16:20 | P.PN ---
Subjective Progress Note Date: 03/21/22 H&P Date: 03/20/22 Allyssa Jeter is a 82 yo F with PMH of chronic severe hydrocephalus, dementia who was brought to the ED by family for reduced PO intake and worsening mental status. History obtained via chart review. Patient has been increased lately altered and lethargic over the last several weeks to months and has been completely altered for the last 2 days. She apparently rolled out of bed and hit her head approx 1 week ago. On presentation vitals stable, WBC unremarkable, Cr 1.39, BUN 40. Troponin is 0.424 CT of the head is reported as severe hydrocephalus without change compared to old exam. No acute intracranial abnormality. No obstructive masses seen. 03/21/2022 patient is barely arousable , nonverbal.staff reports patient not waking up for oral intake. Maintained on IV fluid hydration with renal function improving, creatinine 1.16. EEG reported as abnormal suggestive of mild to moderate encephalopathy with no focal slowing, epileptiform discharges or seizures. No family at bedside. Attempted to call yesterday. Initially had been looking for potential placement, the patient appears to be appropriate for hospice at this time. Objective - Vital Signs Vital signs: Vital Signs Temp 97.7 F 03/21/22 15:04 Pulse 60 03/21/22 15:04 Resp 16 03/21/22 15:04 BP 108/51 03/21/22 15:04 Pulse Ox 97 03/21/22 15:04 FiO2 Intake & Output 03/20/22 03/21/22 03/21/22 18:59 06:59 18:59 Intake Total 3587.259 8857 Output Total 450 Balance 4490.005 5768 Weight 38.555 kg Intake: Intake, IV Titration 3967.088 8074 Amount Heparin Sod,Pork in 0.45% 64.311 NaCl 25,000 unit In 0.45 % NaCl 1 250ml.bag @ 18 UNITS/KG/HR 6.94 mls/hr IV .Q24H [facility] Rx#: [id number] Sodium Chloride 0.9% 1, 1040 000 ml @ 130 mls/hr IV . Q7H42M [facility] Rx#:[id number] Sodium Chloride 0.9% 1, 1560 000 ml @ 130 mls/hr IV . Q7H42M [facility] Rx#:[id number] Oral 10 100 Output: Urine 450 Other: Voiding Method External Catheter External Catheter External Catheter # Voids 1 - Exam Gen: elderly female in NAD HEENT: NC/AT Neck: Supple, no JVD or thyromegaly CV: RRR, no murmur Lungs: CTAB Abd: soft, nontender, bowel sounds normal Skin: warm and dry,Unstageable right hip ulceration,3 x 4 x 0.1 cm, dressing clean dry and intact. Neuro: Unable to assess, nonverbal, difficult to arouse - Labs CBC & Chem 7: 03/20/22 05:14 03/20/22 05:14 Assessment and Plan Assessment: Worsening mental status, metabolic encephalopathy ,suspected related to worsening advanced dementia with failure to thrive Chronic severe hydrocephalus Recent fall 1 week ago, brain CT reported severe hydrocephalus without change, no acute intracranial abnormality, no obstructive masses. Elevated troponin, possible NSTEMI, conservative management Acute renal injury with ATN Unstageable right hip ulceration,3 x 4 x 0.1 cm. Plan: Continue on current medication regime ,monitoring and symptomatic treatment. Evaluated by multiple consults with recommendations noted and appreciated. Patient's advanced dementia worsening with poor prognosis. Tenzin joel/hospice STRAIGHT CUTTER consulted. The impression and plan of care has been dictated as directed. : I performed a history and examination of this patient, discussed the same with the dictator. I agree with the dictator's note ,documented as a scribe. Any additional findings or plans will be noted.
[2022-03-21] MEDS: SENNOSIDES-DOCUSATE SODIUM 1 EACH TAB PO SCH (20:13)
[2022-03-22] MEDS: SODIUM CHLORIDE 0.9% 1,000 ML IV SCH ×3 (06:26→09:41)
[2022-03-22] MEDS: ASPIRIN 81 MG PO SCH (09:14)
[2022-03-22] MEDS: PANTOPRAZOLE 40 MG/10 ML VIAL IVP SCH (09:37)
[2022-03-22] MEDS: CYANOCOBALAMIN 1,000 MCG/ML 1 ML VIAL IM SCH (10:30)
--- NOTE | 2022-03-22 11:36 | P.CONS ---
History of Present Illness - Reason for Consult Consult date: 03/22/22 End-stage dementia, failure to thrive Requesting physician: Tomasa Kennedy - Chief Complaint Altered mental status - History of Present Illness The patient is an 82-year-old female with a past medical history significant for dementia and hydrocephalus. The patient was brought to the emergency department on 03/19/22 by her with concerns of reduced by mouth intake and worsening mental status. At that time the patient was responsive to painful stimuli but was nonverbal. The patient's history was obtained from her . It was reported by the patient's that the patient had been increasingly altered and lethargic over the last several weeks to months but stated that over the last 2 days she has become completely altered. He stated that the patient has rolled off the bed and hit the side of her head a week and a half ago but has not had any other trauma. On presentation vitals stable, WBC unremarkable, Cr 1.39, BUN 40. Troponin is 0.424 CT of the head is reported as severe hydrocephalus without change compared to old exam. No acute intracranial abnormality. No obstructive masses seen. Neurology is following. Routine EEG is abnormal. The background slowing suggestive of mild to moderate encephalopathy. Otherwise there is no focal slowing, epileptiform discharges or seizure on the EEG. Per neurology no acute intervention is needed regarding her chronic hydrocephalus that dates back to 2014. Patient has been barely arousable, nonverbal, and unable to eat or drink. The patient has also had elevated troponins and cardiology has been following for evaluation of a NSTEMI. No aggressive cardiac treatment is planned. Review of Systems Constitutional: Reports as per HPI Ears, nose, mouth and throat: Reports as per HPI Cardiovascular: Reports as per HPI Respiratory: Reports as per HPI Past Medical History Past Medical History: Unable to Obtain, Cancer, Dementia Additional Past Medical History / Comment(s): pt spouse reports that he believes his has a history of uterine cancer with a possible hysterectomy. Pt is a poor historian. History of Any Multi-Drug Resistant Organisms: None Reported Past Surgical History: Unable to Obtain, Hysterectomy Additional Past Surgical History / Comment(s): pt a poor historian. Past Anesthesia/Blood Transfusion Reactions: No Reported Reaction, Unable to Obtain Past Psychological History: No Psychological Hx Reported Smoking Status: Never smoker Past Alcohol Use History: None Reported Past Drug Use History: None Reported - Past Family History Daughter(s) Family Medical History: Cancer Father Family Medical History: Congestive Heart Failure (CHF) Medications and Allergies Home Medications Medication Instructions Recorded Confirmed Type Memantine [Namenda] 5 mg PO HS 05/28/18 03/19/22 History Memantine [Namenda] 10 mg PO DAILY 05/28/18 03/19/22 History Ergocalciferol [Vitamin D2 (1250 1,250 mcg PO FR 05/01/20 03/19/22 History Mcg = 12194 Iu)] Acetaminophen [Tylenol] 325 mg PO Q4H PRN 03/19/22 03/19/22 History Sennosides-Docusate Sodium 1 tab PO HS 03/19/22 03/19/22 History [Senokot-S] Allergies Allergy/AdvReac Type Severity Reaction Status Date / Time No Known Allergies Allergy Verified 03/19/22 19:50 Physical Exam Vitals: Vital Signs Temp Pulse Pulse Resp BP BP Pulse Ox 03/22/22 07:15 98.4 F 54 L 16 94/48 96 03/22/22 01:33 98.3 F 58 L 18 88/51 95 03/21/22 21:48 98.3 F 57 L 17 96/42 95 03/21/22 19:50 98.1 F 60 17 98/57 97 03/21/22 15:04 97.7 F 60 16 108/51 97 03/21/22 11:19 98.3 F 58 L 17 94/45 97 Intake and Output 03/21/22 03/22/22 03/22/22 22:59 06:59 14:59 Output Total 150 Balance -150 Output: Urine 150 Other: Voiding Method External Catheter External Catheter External Catheter # Voids 1 # Bowel Movements 1 General: Cachectic .No acute distress. Chronically ill appearing CV: Heart regular in rate and rhythm positive S1 and S2. No peripheral edema Lungs: Clear to auscultation bilaterally. No wheezes rales or rhonchi. Respirations even and nonlabored. Abdomen/GI: Soft. No guarding, rigidity, or abdominal tenderness. : No suprapubic tenderness. External catheter present with clear yellow urine draining Musculoskeletal/ Extremities: + generalized weakness, atrophy present Skin: Warm and dry Neurologic: Lethargic and nonverbal Psychiatric: Unable to assess Results CBC & Chem 7: 03/20/22 05:14 03/20/22 05:14 Labs: Abnormal Lab Results - Last 24 Hours (Table) 03/20/22 Range/Units 05:14 Vitamin B12 193.0 L (200.0-944.0) pg/mL Chest x-ray: report reviewed CT Scan - head: report reviewed Assessment and Plan Assessment: Social * Occupation - retired * Marital status - * Children/grandchildren - has 2 adult sons who are estranged. * Residence - mobile home * Who do you reside with - with and several cats * ETOH - no * Tobacco - never smoked * Illicit drugs - no Functional Assessment * Able to walk independently - patient is bedbound at home * Able to use the bathroom independently - no * Continent - she is incontinent * Require assistance bathing- yes * Able to feed self - no * Who prepares meals - * Able to clean house/do laundry - no * Transportation - patient does not drive. provides transportation * Able to shop - no * Who manages medications - * Who manages finances - Psychological/Emotional * Dementia present - advanced dementia present * Insight and judgment - not intact * Depression - unable to assess * Suicidal thoughts - unable to assess * Patients goals - comfort per * Frequent hospitalizations - no * Desire to keep coming back to the hospital for treatment - no peripheral Symptoms * Pain - CPOT 0 * Fatigue - yes * SOB - no * Insomnia - no she is very lethargic * N/V - no * Anxiety - unable to assess * Depression - unable to assess * Confusion - she is nonverbal * Agitation - no * Hallucinations - unable to assess * Appetite/weight loss - she is cachectic, barely responsive, and unable to eat or drink at this time * Dysphagia -able to assess * Constipation - last bowel movement 03/22, continue Senokot * Incontinence - yes, external catheter present * Itch - no * Cough - no Plan: Summary/Goals - The patient's is present at the bedside. He stated he knew the time coming and he would have to consider hospice. He is aware that her dementia is very advanced and she is no longer eating or drinking. He feels as though he cannot care for her at home anymore. Information regarding hospice philosophies and services was provided. The patient is not comfortable with people coming into his home for multiple reasons. He doesn't feel as if she would get the care that she needs there. He would feel better if she was in the facility where they specialize in hospice care and is interested in [facility] hospice home. He is aware that Medicare will cover hospice services, but does not room and board. He is agreeable to meeting with [facility] and completing a financial assessment. manager analytical notified. A hospice consult was placed for [facility]. Recommendations - [facility] home Advanced Directives - none on file Code Status - DO NOT RESUSCITATE Thank you for this consultation [address] [facility] [id number] Email: [email or web address] Time with Patient: Greater than 30
--- NOTE | 2022-03-22 14:35 | P.PN ---
Subjective Progress Note Date: 03/22/22 H&P Date: 03/20/22 Allyssa Jeter is a 82 yo F with PMH of chronic severe hydrocephalus, dementia who was brought to the ED by family for reduced PO intake and worsening mental status. History obtained via chart review. Patient has been increased lately altered and lethargic over the last several weeks to months and has been completely altered for the last 2 days. She apparently rolled out of bed and hit her head approx 1 week ago. On presentation vitals stable, WBC unremarkable, Cr 1.39, BUN 40. Troponin is 0.424 CT of the head is reported as severe hydrocephalus without change compared to old exam. No acute intracranial abnormality. No obstructive masses seen. 03/21/2022 patient is barely arousable , nonverbal.staff reports patient not waking up for oral intake. Maintained on IV fluid hydration with renal function improving, creatinine 1.16. EEG reported as abnormal suggestive of mild to moderate encephalopathy with no focal slowing, epileptiform discharges or seizures. No family at bedside. Attempted to call yesterday. Initially had been looking for potential placement, the patient appears to be appropriate for hospice at this time. 03/12/22 patient remains nonverbal, not eating or drinking, minimally arousable. Multiple consults on case recommending conservative treatment .Spouse at bedside, discussed declining condition, requesting hospice informational meeting. Hospice APPLICATION RELEASE MANAGER enroute to meet with him this morning. Objective - Vital Signs Vital signs: Vital Signs Temp 98.4 F 03/22/22 07:15 Pulse 54 L 03/22/22 07:15 Resp 16 03/22/22 07:15 BP 94/48 03/22/22 07:15 Pulse Ox 96 03/22/22 07:15 FiO2 Intake & Output 03/21/22 03/22/22 03/22/22 18:59 06:59 18:59 Output Total 150 Balance -150 Output: Urine 150 Other: Voiding Method External Catheter External Catheter # Voids 1 # Bowel Movements 1 - Exam Gen: elderly female in NAD HEENT: NC/AT Neck: Supple, no JVD or thyromegaly CV: RRR, no murmur Lungs: CTAB Abd: soft, nontender, bowel sounds normal Skin: warm and dry,right hip dressing clean dry and intact. Neuro: Unable to assess, nonverbal. Minimally responsive. - Labs CBC & Chem 7: 03/20/22 05:14 03/20/22 05:14 Labs: Abnormal Lab Results - Last 24 Hours (Table) 03/20/22 Range/Units 05:14 Vitamin B12 193.0 L (200.0-944.0) pg/mL Assessment and Plan Assessment: Worsening mental status, metabolic encephalopathy ,suspected related to worsening advanced dementia with failure to thrive Chronic severe hydrocephalus Recent fall 1 week ago, brain CT reported severe hydrocephalus without change, no acute intracranial abnormality, no obstructive masses. Elevated troponin, possible NSTEMI, conservative management Acute renal injury with ATN Unstageable right hip ulceration,3 x 4 x 0.1 cm. Plan: Continue on current medication regime ,monitoring and symptomatic treatment. Prognosis poor .Palliative/hospice APPLICATION RELEASE MANAGER consult in place. Spouse is considering [facility] [place]. The impression and plan of care has been dictated as directed. : I performed a history and examination of this patient, discussed the same with the dictator. I agree with the dictator's note ,documented as a scribe. Any additional findings or plans will be noted.
[2022-03-22] MEDS: SENNOSIDES-DOCUSATE SODIUM 1 EACH TAB PO SCH (19:55)
--- NOTE | 2022-03-23 08:37 | P.DS ---
Providers Date of admission: 03/19/22 23:08 Expected date of discharge: 03/23/22 Attending physician: Carlos Forrest MD Consults: 03/19/22 23:05 Consult Physician Routine Consulting Provider: [facility] Consult Reason/Comments: NSTEMI Do you want consulting provider notified?: Yes, Notify in am Consult Physician Routine Consulting Provider: Kendell Vaz Consult Reason/Comments: Severe hydrocephalus with AMS Do you want consulting provider notified?: Yes, Notify in am 03/21/22 13:18 Consult to Palliative Care Routine Consulting Provider: Maria Del Rosario Lane Consult Reason/Comments: End-stage dementia, declining health Do you want consulting provider notified?: Yes Primary care physician: Terri Conn [facility] Course: Allyssa Jeter is a 82 yo F with PMH of chronic severe hydrocephalus, dementia who was brought to the ED by family for reduced PO intake and worsening mental status. History obtained via chart review. Patient has been increased lately altered and lethargic over the last several weeks to months and has been completely altered for the last 2 days. She apparently rolled out of bed and hit her head approx 1 week ago. On presentation vitals stable, WBC unremarkable, Cr 1.39, BUN 40. Troponin is 0.424 CT of the head is reported as severe hydrocephalus without change compared to old exam. No acute intracranial abnormality. No obstructive masses seen. Pt evalauted by Cardiology and Neurology, no stroke or acute event, pt started on ASA and given IV fluids for her ANTHONY. Renal function normalized. Pt with poor PO intake throughout her hospitalization due to advanced dementia. Hospice meeting with family and pt discharged with [facility]. Patient Condition at Discharge: Stable Plan - Discharge Summary Discharge Rx Participant: No New Discharge Prescriptions: Continue Acetaminophen [Tylenol] 325 mg PO Q4H PRN PRN Reason: Pain Or Fever > 100.5 Discontinued Memantine [Namenda] 10 mg PO DAILY Memantine [Namenda] 5 mg PO HS Ergocalciferol [Vitamin D2 (1250 Mcg = 26308 Iu)] 1,250 mcg PO FR Sennosides-Docusate Sodium [Senokot-S] 1 tab PO HS Discharge Medication List Acetaminophen [Tylenol] 325 mg PO Q4H PRN 03/19/22 [History] Follow up Appointment(s)/Referral(s): Terri Conn DO [Primary Care Provider] - 1-2 days Discharge Disposition: HOME WITH HOSPICE
[2022-03-23] MEDS ORDERED: ACETAMINOPHEN TAB 325 MG TAB PO PRN (08:48)
[2022-03-23] MEDS ORDERED: ACETAMINOPHEN SUPPOSITORY 650 MG SUPP RECTAL PRN (09:12)
[2022-03-23] MEDS: PANTOPRAZOLE 40 MG/10 ML VIAL IVP SCH (09:13)
[2022-03-23] MEDS: ASPIRIN 81 MG PO SCH (09:13)
--- NOTE | 2022-03-23 09:22 | CDI ---
Documentation Clarification Form Date: 03/22/2022 1:38:00 PM From: Debra Muir CCS, CCDS Admit Date: 03/19/2022 11:08:00 PM Patient Name: Allyssa Jeter Visit Number: [id number] Discharge Date: ATTENTION: The Clinical Documentation Specialists (CDI) and [facility] Coding Staff appreciate your assistance in clarifying documentation. Please respond to the clarification below the line at the bottom and electronically sign. The CDI & [facility] Coding staff will review the response and follow-up if needed. Please note: Queries are made part of the Legal Health Record. If you have any questions, please contact the author of this message via ITS. Dr. Carlos Forrest: The patient is admitted with dementia and failure to thrive and has an unstageable pressure ulcer to the right hip with a BMI of 16.1. Based on this information and the findings below, is there an additional diagnosis that is clinically appropriate for this patient? History/Risk Factors per the 03/20 H/P: Chronic severe Hydrocephalus, Dementia, Uterine Cancer status post Hysterectomy. Clinical Indicators: Presented to the ED on 03/19 via EMS with Altered Menta Status, Nonverbal, increased lethargy for several months, worsening mentation last two days. Per the patient's , she rolled off the bed and hit her head a week & half ago, patient is cachectic. Admit with NSTEMI, Altered Mental Status, Failure to Thrive and Hydrocephalus. Nursing Assessment: No intake recorded on Heart Healthy Diet. Weight: 38.555 kg, Height 5 ft 1 in, Underweight, BMI 16.1. Calculated IBW: 47.627 kg. % [place] Body Weight: 81^ Meeting 75% of nutrition goals. Supplement: Commercial Ensure complete. Incontinent with external catheter, Urine: dark fabrizio with strong odor, Incontinent of stool, Poor muscle strength, muscles stiff, weak, shaky. Per Wound Consult 03/21: Unstageable Right Hip Ulceration. Treatment 03/19: Neurology consult, IV fluid bolus Na Chl 1,000 mls @ 999 mls/hr q1H, IV Heparin drip. 03/20: IV Protonix 40 mg Daily. 03/21: PO low dose Aspirin Daily 03/22 Hospice consulted, DNR, IM Vit B12 Daily. Is there an additional diagnosis that is clinically appropriate for this patient? [ ] Mild Protein-Calorie Malnutrition [ ] Moderate Protein-Calorie Malnutrition [ ] Severe Protein-Calorie Malnutrition [ ] Other condition, please specify [ ] Unable to Determine (Template Last Revised: May 2020) Severe Protein-Calorie Malnutrition MTDD
--- NOTE | 2022-03-23 12:59 | P.PN ---
Subjective Progress Note Date: 03/23/22 Principal diagnosis: Advanced dementia The patient is an 82-year-old female with a past medical history significant for dementia and hydrocephalus. The patient was brought to the emergency department on 03/19/22 by her with concerns of reduced by mouth intake and worsening mental status. At that time the patient was responsive to painful stimuli but was nonverbal. The patient's history was obtained from her . It was reported by the patient's that the patient had been increasingly altered and lethargic over the last several weeks to months but stated that over the last 2 days she has become completely altered. He stated that the patient has rolled off the bed and hit the side of her head a week and a half ago but has not had any other trauma. On presentation vitals stable, WBC unremarkable, Cr 1.39, BUN 40. Troponin is 0.424 CT of the head is reported as severe hydrocephalus without change compared to old exam. No acute intracranial abnorm ality. No obstructive masses seen. Neurology is following. Routine EEG is abnormal. The background slowing suggestive of mild to moderate encephalopathy. Otherwise there is no focal slowing, epileptiform discharges or seizure on the EEG. Per neurology no acute intervention is needed regarding her chronic hydrocephalus that dates back to 2014. Patient has been barely arousable, nonverbal, and unable to eat or drink. The patient has also had elevated troponins and cardiology has been following for evaluation of a NSTEMI. No aggressive cardiac treatment is planned. 03/22 The patient's is present at the bedside. He stated he knew the time coming and he would have to consider hospice. He is aware that her dementia is very advanced and she is no longer eating or drinking. He feels as though he cannot care for her at home anymore. Information regarding hospice philosophies and services was provided. The patient is not comfortable with people coming into his home for multiple reasons. He doesn't feel as if she would get the care that she needs there. He would feel better if she was in the facility where they specialize in hospice care and is interested in [facility]. He is aware that Medicare will cover hospice services, but does not room and board. He is agreeable to meeting with [facility] and completing a financial assessment. plumbing manager notified. A hospice consult was placed for [facility]. Objective - Vital Signs Vital signs: Vital Signs Temp 97.8 F 03/23/22 09:25 Pulse 55 L 03/23/22 07:25 Resp 17 03/23/22 07:25 BP 121/67 03/23/22 07:25 Pulse Ox 98 03/23/22 07:25 FiO2 Intake & Output 03/22/22 03/23/22 03/23/22 18:59 06:59 18:59 Weight 38.555 kg Other: Voiding Method External Catheter External Catheter # Voids 1 4 2 - Exam General: Cachectic .No acute distress. Chronically ill appearing CV: Heart regular in rate and rhythm positive S1 and S2. No peripheral edema Lungs: Clear to auscultation bilaterally. No wheezes rales or rhonchi. Respirations even and nonlabored. Abdomen/GI: Soft. No guarding, rigidity, or abdominal tenderness. : No suprapubic tenderness. External catheter present with clear yellow urine draining Musculoskeletal/ Extremities: + generalized weakness, atrophy present Skin: Warm and dry Neurologic: Lethargic and nonverbal Psychiatric: Unable to assess - Labs CBC & Chem 7: 03/20/22 05:14 03/20/22 05:14 Assessment and Plan Plan: Summary/Goals - The patient is resting in bed. Her eyes are open, but she does not respond. Her is at the bedside along with his sister and brother in law. They have a meeting scheduled with [facility] today to determine the best plan of action for the patient. hospice filtration supervisor, Yessenia is present and explaining hospice philosophies and services available. During the meeting, the again voices his concerns regarding not being able to care for her at home. He agreed to a financial assessment for the hospice home. If the cost of the hospice home is too expensive after the assessment, he will consider taking her home with hospice. He feels as if there is no other option. He was given the financial assessment paperwork to complete. Recommendations - [facility] Advanced Directives - none on file Code Status - DO NOT RESUSCITATE Thank you for this consultation Maria Del [address]ario [address] [facility] Palliative Care Spectralink [phone] Email: [email or web address] Time with Patient: Greater than 30
--- NOTE | 2022-03-23 13:20 | P.PN ---
Subjective Progress Note Date: 03/23/22 According to the patient nurse patient is going for hospice today Objective - Vital Signs Vital signs: Vital Signs Temp 97.8 F 03/23/22 09:25 Pulse 55 L 03/23/22 07:25 Resp 17 03/23/22 07:25 BP 121/67 03/23/22 07:25 Pulse Ox 98 03/23/22 07:25 FiO2 Intake & Output 03/22/22 03/23/22 03/23/22 18:59 06:59 18:59 Weight 38.555 kg Other: Voiding Method External Catheter External Catheter # Voids 1 4 2 - Exam GENERAL: The patient is lying in bed and does not appear in acute distress. NEUROLOGICAL: Limited because of her condition/cooperation. Higher mental function: The patient is awake and not verbalizing or following commands. , Cranial nerves: The pupils are round, equal and reactive to light. Patient is tracking throughout the room. No facial weakness. Is mute. Motor: The strength is hard to assess individual muscles but is able to lift bilateral uppers above gravity. Appears Normal tone and bulk. Cerebellum: Unable to assess. Sensation: Unable to assess light touch. Reflexes (right/left): Unable to assess because of cooperation. Plantars: Is unable to assess because of cooperation. Some of the workup during his hospital visit consisted of: Initial CBC with differential seems unremarkable. Creatinine is 1.39 BUN is 40, initial glucose is 112, AST is 59 and the ALT of 40. Ammonia is less than 9. Urinalysis seems questionable urinary tract infection but I feel it seems unlikely CT of the head is reported as severe hydrocephalus without change compared to old exam. No acute intracranial abnormality. No obstructive masses seen. I reviewed the reports from prior CT of the brain and she had this severe hydrocephalus at least since 2014 in our facility Troponin is 0.424 TSH is 1.340 Vital B12 was 193 Folate is 13.10 TSH is 1.340 Routine EEG is abnormal. The background slowing suggestive of mild to moderate encephalopathy. Otherwise there is no focal slowing, epileptiform discharges or seizure on the EEG - Labs CBC & Chem 7: 03/20/22 05:14 03/20/22 05:14 Assessment and Plan Assessment: Altered mental status and reported for weeks to months. Possibly due to worsening of underlying dementia Vitamin B12 deficiency Chronic Severe hydrocephalus and had imaging CT in our facility as back as 2014 with this Elevated troponin Dementia Plan: Because of Vitamin B12 deficiency started on Vitamin B12 1000mcg IM for total of 3 days starting 03/21 then after PO. Regarding her chronic hydrocephalus that dates back at least since 2014 no acute intervention is needed and recommend outpatient follow-up with a neurologist/neurosurgeon of the patient's family desires Cardiology is consulted for elevated troponin We'll defer the rest of the medical management to the primary team Family is pursuing hospice. Plan is discussed with nurse. Neurology will sign off. Please reconsult if needed. Time with Patient: Less than 30
[2022-03-23] MEDS: SENNOSIDES-DOCUSATE SODIUM 1 EACH TAB PO SCH (20:22)
[2022-03-24 08:13] VITALS: BP 134/76; PULSE 65; RESP 17; TEMP 98.5
[2022-03-24] MEDS: PANTOPRAZOLE 40 MG/10 ML VIAL IVP SCH (08:31)
[2022-03-24] MEDS: CYANOCOBALAMIN 1,000 MCG/ML 1 ML VIAL IM SCH (10:12)
[2022-03-24] MEDS: ASPIRIN 81 MG PO SCH (10:12)
--- NOTE | 2022-03-24 18:50 | P.PN ---
Subjective Progress Note Date: 03/24/22 82-year-old female with a past medical history significant for dementia and hydrocephalus. The patient was brought to the emergency department on 03/19/22 by her with concerns of reduced by mouth intake and worsening mental status. At that time the patient was responsive to painful stimuli but was nonverbal. The patient's history was obtained from her . It was reported by the patient's that the patient had been increasingly altered and lethargic over the last several weeks to months but stated that over the last 2 days she has become completely altered. He stated that the patient has rolled off the bed and hit the side of her head a week and a half ago but has not had any other trauma. On presentation vitals stable, WBC unremarkable, Cr 1.39, BUN 40. Troponin is 0.424 CT of the head is reported as severe hydrocephalus without change compared to old exam. No acute intracranial abnormality. No obstructive masses seen. Neurology is following. Routine EEG is abnormal. The background slowing suggestive of mild to moderate encephalopathy. Otherwise there is no focal slowing, epileptiform discharges or seizure on the EEG. Per neurology no acute intervention is needed regarding her chronic hydrocephalus that dates back to 2014. Patient has been barely arousabl e, nonverbal, and unable to eat or drink. The patient has also had elevated troponins and cardiology has been following for evaluation of a NSTEMI. No aggressive cardiac treatment is planned. Plan is to discharge to hospice home today Objective - Vital Signs Vital signs: Vital Signs Temp 98.5 F 03/24/22 07:05 Pulse 65 03/24/22 07:05 Resp 17 03/24/22 07:05 BP 134/76 03/24/22 07:05 Pulse Ox 95 03/24/22 07:05 FiO2 Intake & Output 03/23/22 03/24/22 03/24/22 18:59 06:59 18:59 Other: Voiding Method Diaper Incontinent # Voids 2 2 2 - Exam General: Cachectic .No acute distress. Chronically ill appearing CV: Heart regular in rate and rhythm positive S1 and S2. No peripheral edema Lungs: Clear to auscultation bilaterally. No wheezes rales or rhonchi. Respirations even and nonlabored. Abdomen/GI: Soft. No guarding, rigidity, or abdominal tenderness. : No suprapubic tenderness. External catheter present with clear yellow urine draining Musculoskeletal/ Extremities: + generalized weakness, atrophy present Skin: Warm and dry Neurologic: Lethargic and nonverbal Psychiatric: Unable to assess - Labs CBC & Chem 7: 03/20/22 05:14 03/20/22 05:14 Assessment and Plan Assessment: Altered mental status and reported for weeks to months. Possibly due to worsening of underlying dementia Vitamin B12 deficiency Chronic Severe hydrocephalus and had imaging CT in our facility as back as 2014 with this Elevated troponin Dementia Plan: Because of Vitamin B12 deficiency started on Vitamin B12 1000mcg IM for total of 3 days starting 03/21 then after PO. Regarding her chronic hydrocephalus that dates back at least since 2014 no acute intervention is needed and recommend outpatient follow-up with a neurologist/neurosurgeon of the patient's family desires
[2022-03-25] MEDS ORDERED: CYANOCOBALAMIN 500 MCG TAB PO SCH (10:30)
== END 2022-03-24 14:30 | disposition hospice, inpatient (51) | DRG 884 ==
LOC: EC 14:40 → 3SCARD 23:08 → 4SSUR 03-21 21:27
PROVIDERS: ADMIT Family Medicine; ATTEND Family Medicine
DX: F03.94 Unspecified dementia, unspecified severity, with anxiety (principal); I21.4 Non-ST elevation (NSTEMI) myocardial infarction; G93.41 Metabolic encephalopathy; N17.0 Acute kidney failure with tubular necrosis; E43 Unspecified severe protein-calorie malnutrition; Z68.1 Body mass index [BMI] 19.9 or less, adult; G91.9 Hydrocephalus, unspecified; R64 Cachexia; R45.851 Suicidal ideations; F03.918 Unspecified dementia, unspecified severity, with other behavioral disturbance; F03.92 Unspecified dementia, unspecified severity, with psychotic disturbance; R62.7 Adult failure to thrive; Z66 Do not resuscitate; Z51.5 Encounter for palliative care; Z91.81 History of falling; G47.00 Insomnia, unspecified; Z82.49 Family history of ischemic heart disease and other diseases of the circulatory system; Z79.899 Other long term (current) drug therapy; R13.10 Dysphagia, unspecified; L89.210 Pressure ulcer of right hip, unstageable; K59.00 Constipation, unspecified; E53.8 Deficiency of other specified B group vitamins
CPT/HCPCS: 36415; 70450; 71046; 80048; 80053; 81001; 82140; 82607; 82746; 83605; 83690; 83735; 83880; 84443; 84484; 85025; 85610; 85730; 93005; 95816; 96374; 96375; 99285